=== PATIENT | male | born 1960 | race Caucasian/White ===

== ENCOUNTER 2016-10-08 12:37 | Inpatient (IN) | payer OTHER ==
[2016-10-08 12:40] VITALS: BMI 24.5
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
[2016-10-08] MEDS ORDERED: MENTHOL/PHENOL 1 EACH UD MM PRN (14:01)
[2016-10-08] MEDS ORDERED: NICOTINE POLACRILEX 2 MG GUM BUC PRN (14:01)
[2016-10-08] MEDS ORDERED: P-EPHED 60MG/TRIPROLIDI 2.5MG TABLET PO PRN (14:01)
[2016-10-08] MEDS ORDERED: MAGNESIUM CITRATE 300 ML BOTTLE PO PRN (14:01)
[2016-10-08] MEDS ORDERED: MAGNESIUM HYDROX 2400MG/30ML ORAL SUSPENSION 30 ML CUP PO PRN (14:01)
[2016-10-08] MEDS ORDERED: ACETAMINOPHEN 325 MG TABLET (FP) PO PRN (14:01)
[2016-10-08] MEDS ORDERED: LOPERAMIDE HCL 2 MG CAPSULE PO PRN (14:01)
[2016-10-08] MEDS ORDERED: guaiFENesin/D-METHORPHAN HB 10 ML UNIT-DOSE CUPS PO PRN (14:01)
[2016-10-08] MEDS ORDERED: diphenhydrAMINE HCL 50 MG CAPSULE PO PRN (14:01)
[2016-10-08] MEDS ORDERED: MAG HYDROX/AL HYDROX/SIMETH 30 ML UNIT-DOSE CUP PO PRN (14:01)
[2016-10-08] MEDS ORDERED: chlordiazePOXIDE HCL 25 MG CAPSULE PO PRN (14:01)
[2016-10-08] MEDS ORDERED: LEVOTHYROXINE NA 50 MCG TABLET (FP) PO SCH (14:15)
[2016-10-08] MEDS ORDERED: TRIMETHOBENZAMIDE HCL 200MG/2ML INJ IM PRN (14:21)
[2016-10-08] MEDS ORDERED: chlordiazePOXIDE HCL 25 MG CAPSULE PO ONE (14:45)
[2016-10-08] MEDS: LEVOTHYROXINE NA 100 MCG TABLET (FP) PO SCH (15:25)
[2016-10-08] MEDS: NICOTINE 14 MG/24 HOURS TOPICAL PATCH TD SCH (15:25)
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
[2016-10-08] MEDS: IBUPROFEN 400 MG TABLET (FP) PO PRN (17:02)
[2016-10-08] MEDS: chlordiazePOXIDE HCL 25 MG CAPSULE PO SCH ×2 (17:03→22:44)
[2016-10-08] MEDS ORDERED: ONDANSETRON *ODT* 4 MG TABLET SL PRN (18:43)
[2016-10-08] MEDS ORDERED: GABAPENTIN 100 MG CAPSULE (FP) PO SCH (22:00)
[2016-10-08 22:16] LABS: HIV 1 & 2 AB NEGATIVE; HIV 1 AGp24 NEGATIVE
[2016-10-08 22:17] LABS: URINE APPEARANCE CLEAR; URINE BILIRUBIN NEGATIVE (NEGATIVE); URINE BLOOD 2+ (NEGATIVE); URINE COLOR LTYELLOW; URINE GLUCOSE (UA) NEGATIVE (NEGATIVE); URINE KETONE NEGATIVE (NEGATIVE); URINE LEUK ESTERASE NEGATIVE (NEGATIVE); URINE NITRITE NEGATIVE (NEGATIVE); URINE PROTEIN NEGATIVE (NEGATIVE); URINE UROBILINOGEN NEGATIVE mg/dL (0.2-1.0)
[2016-10-08 22:29] LABS: URINE MUCUS RARE; URINE RBC 6 /hpf (0-3); URINE WBC 1 /hpf (3-5)
[2016-10-08] MEDS: traZODone HCL 100 MG TABLET (FP) PO SCH (22:44)
[2016-10-08] MEDS: THIAMINE HCL 100 MG TABLET (FP) PO SCH (22:44)
[2016-10-08] MEDS: GABAPENTIN 300 MG CAPSULE (FP) PO SCH (22:44)
[2016-10-09] MEDS: chlordiazePOXIDE HCL 25 MG CAPSULE PO SCH ×4 (05:19→22:36)
[2016-10-09] MEDS: IBUPROFEN 400 MG TABLET (FP) PO PRN (05:22)
[2016-10-09] MEDS: LEVOTHYROXINE NA 100 MCG TABLET (FP) PO SCH (06:26)
[2016-10-09 09:59] LABS: MCH 23.1 pg (25.7-33.7); MCHC 31.3 g/dl (32.0-35.9); MEAN CELL VOLUME 73.9 fl (80-96); MEAN PLT VOLUME 9.3 fl (7.5-11.1); PLATELET COUNT 161 K/MM3 (134-434); RDW 16.3 % (11.9-15.9); WHITE BLOOD COUNT 8.1 K/mm3 (4.0-10.0)
[2016-10-09 10:27] LABS: ALBUMIN 3.8 g/dl (3.4-5.0); ALK PHOS 77 U/L (45-117); ANION GAP 11 (8-16); BILIRUBIN,TOTAL 0.6 mg/dL (0.2-1.0); CALCIUM 9.8 mg/dL (8.5-10.1); CO2 24 mmol/L (21-32); CREATININE 1.1 mg/dL (0.7-1.3); GLUCOSE,RANDOM 110 mg/dL (74-106); SGOT/AST 59 U/L (15-37); SGPT/ALT 35 U/L (12-78); TOT PROT 7.2 g/dl (6.4-8.2)
[2016-10-09] MEDS: PRENATAL VITAMINS W/ FOLIC ACID TABLET (FP) PO SCH (10:48)
[2016-10-09] MEDS: GABAPENTIN 300 MG CAPSULE (FP) PO SCH ×2 (10:49→22:36)
[2016-10-09] MEDS: SERTRALINE HCL 50 MG TABLET (FP) PO SCH (10:50)
[2016-10-09] MEDS: NICOTINE 14 MG/24 HOURS TOPICAL PATCH TD SCH (10:50)
[2016-10-09] MEDS: RANITIDINE HCL 150 MG TABLET (FP) PO SCH ×2 (12:26→22:36)
[2016-10-09] MEDS: ALBUTEROL SO4 2.5/IPRATROPIUM 0.5 INH SOL 3 ML VIAL.NEB. NEB PRN (17:45)
--- NOTE | 2016-10-09 18:37 | PN ---
S CIWA - CIWA Score Nausea/Vomitin Muscle Tremors: 3 Anxiety: 3 Agitation: 0-Normal Activity Paroxysmal Sweats: 3 Orientation: 0-Oriented Tacttile Disturbances: 0-None Auditory Disturbances: 2-Mild Harshness/Frighten Visual Disturbances: 3-Moderate Sensitivity Headache: 0-None Present CIWA-Ar Total Score: 17 BHS Progress Note (SOAP) Subjective: Nausea, Stomach Cramping, Fatigue, Sweating, Tremors, Body Aches. Objective: PT. A & O X 3, OBSERVED MOVING ABOUT UNIT IN WHEELCHAIR. NO ACUTE DISTRESS. 10/09/16 18:34 Vital Signs Temperature 98.4 F 10/09/16 18:04 Pulse Rate 77 10/09/16 18:04 Respiratory Rate 18 10/09/16 18:04 Blood Pressure 120/65 10/09/16 18:04 O2 Sat by Pulse Oximetry (%) Laboratory Tests 10/08/16 10/08/16 10/09/16 14:00 21:45 08:00 WBC 8.1 RBC 5.40 Hgb 12.5 Hct 39.9 MCV 73.9 L MCH 23.1 L MCHC 31.3 L RDW 16.3 H Plt Count 161 MPV 9.3 Sodium Potassium Chloride Carbon Dioxide Anion Gap BUN Creatinine Creat Clearance w eGFR Random Glucose Calcium Total Bilirubin AST ALT Alkaline Phosphatase Total Protein Albumin Urine Color Ltyellow Urine Appearance Clear Urine pH 5.0 Ur Specific [place] 1.015 Urine Protein Negative Urine Glucose (UA) Negative Urine Ketones Negative Urine Blood 2+ H Urine Nitrite Negative Urine Bilirubin Negative Urine Urobilinogen Negative Ur Leukocyte Esterase Negative Urine RBC 6 Urine WBC 1 Ur Epithelial Cells Rare Urine Mucus Rare RPR Titer HIV 1&2 Antibody Screen Negative HIV P24 Antigen Negative 10/09/16 10/09/16 08:00 08:00 WBC RBC Hgb Hct MCV MCH MCHC RDW Plt Count MPV Sodium 141 Potassium 3.9 Chloride 106 Carbon Dioxide 24 Anion Gap 11 BUN 10 Creatinine 1.1 Creat Clearance w eGFR > 60 Random Glucose 110 H Calcium 9.8 Total Bilirubin 0.6 AST 59 H ALT 35 Alkaline Phosphatase 77 Total Protein 7.2 Albumin 3.8 Urine Color Urine Appearance Urine pH Ur Specific [place] Urine Protein Urine Glucose (UA) Urine Ketones Urine Blood Urine Nitrite Urine Bilirubin Urine Urobilinogen Ur Leukocyte Esterase Urine RBC Urine WBC Ur Epithelial Cells Urine Mucus RPR Titer Nonreactive HIV 1&2 Antibody Screen HIV P24 Antigen LABS NOTED. Assessment: 10/09/16 18:35 WITHDRAWAL SYMPTOMS. Plan: CONTINUE DETOX.
[2016-10-09] MEDS: THIAMINE HCL 100 MG TABLET (FP) PO SCH (22:36)
[2016-10-09] MEDS: traZODone HCL 100 MG TABLET (FP) PO SCH (22:40)
[2016-10-10] MEDS: chlordiazePOXIDE HCL 25 MG CAPSULE PO SCH ×2 (05:10→10:34)
[2016-10-10] MEDS: IBUPROFEN 400 MG TABLET (FP) PO PRN ×2 (05:10→22:19)
[2016-10-10] MEDS: LEVOTHYROXINE NA 100 MCG TABLET (FP) PO SCH (06:19)
--- NOTE | 2016-10-10 08:10 | EKG ---
Test Reason : Blood Pressure : / mmHG Vent. Rate : 069 BPM Atrial Rate : 069 BPM P-R Int : 190 ms QRS Dur : 086 ms QT Int : 378 ms P-R-T Axes : 075 082 072 degrees QTc Int : 405 ms NORMAL SINUS RHYTHM SEPTAL INFARCT , AGE UNDETERMINED ABNORMAL ECG NO PREVIOUS ECGS AVAILABLE Confirmed by NEGIN BENITEZ, KOBI ([id number]) on 10/10/2016 8:09:37 AM Referred By: Mark Durand Confirmed By:KOBI KAM MD
[2016-10-10] MEDS: SERTRALINE HCL 50 MG TABLET (FP) PO SCH (10:34)
[2016-10-10] MEDS: NICOTINE 14 MG/24 HOURS TOPICAL PATCH TD SCH (10:34)
[2016-10-10] MEDS: GABAPENTIN 300 MG CAPSULE (FP) PO SCH ×2 (10:34→22:16)
[2016-10-10] MEDS: RANITIDINE HCL 150 MG TABLET (FP) PO SCH ×2 (10:34→22:16)
[2016-10-10] MEDS: PRENATAL VITAMINS W/ FOLIC ACID TABLET (FP) PO SCH (10:34)
--- NOTE | 2016-10-10 15:41 | PN ---
S CIWA - CIWA Score Nausea/Vomitin Muscle Tremors: 4-Moderate,w/Arms Extend Anxiety: 4-Mod. Anxious/Guarded Agitation: 4-Moderately Restless Paroxysmal Sweats: No Perspiration Orientation: 0-Oriented Tacttile Disturbances: 1-Very Mild Itch/Numbness Auditory Disturbances: 0-None Visual Disturbances: 0-None Headache: 1-Very Mild CIWA-Ar Total Score: 17 BHS Progress Note (SOAP) Subjective: Tremor, chills, nausea, anxious, interrupted sleep Objective: 10/10/16 15:39 Last Vital Signs Temp Pulse Resp BP Pulse Ox 96.9 F L 84 20 145/85 10/10/16 14:57 10/10/16 14:57 10/10/16 14:57 10/10/16 14:57 Laboratory Tests 10/08/16 10/08/16 10/09/16 14:00 21:45 08:00 WBC 8.1 RBC 5.40 Hgb 12.5 Hct 39.9 MCV 73.9 L MCH 23.1 L MCHC 31.3 L RDW 16.3 H Plt Count 161 MPV 9.3 Sodium Potassium Chloride Carbon Dioxide Anion Gap BUN Creatinine Creat Clearance w eGFR Random Glucose Calcium Total Bilirubin AST ALT Alkaline Phosphatase Total Protein Albumin Urine Color Ltyellow Urine Appearance Clear Urine pH 5.0 Ur Specific [place] 1.015 Urine Protein Negative Urine Glucose (UA) Negative Urine Ketones Negative Urine Blood 2+ H Urine Nitrite Negative Urine Bilirubin Negative Urine Urobilinogen Negative Ur Leukocyte Esterase Negative Urine RBC 6 Urine WBC 1 Ur Epithelial Cells Rare Urine Mucus Rare RPR Titer HIV 1&2 Antibody Screen Negative HIV P24 Antigen Negative 10/09/16 10/09/16 08:00 08:00 WBC RBC Hgb Hct MCV MCH MCHC RDW Plt Count MPV Sodium 141 Potassium 3.9 Chloride 106 Carbon Dioxide 24 Anion Gap 11 BUN 10 Creatinine 1.1 Creat Clearance w eGFR > 60 Random Glucose 110 H Calcium 9.8 Total Bilirubin 0.6 AST 59 H ALT 35 Alkaline Phosphatase 77 Total Protein 7.2 Albumin 3.8 Urine Color Urine Appearance Urine pH Ur Specific [place] Urine Protein Urine Glucose (UA) Urine Ketones Urine Blood Urine Nitrite Urine Bilirubin Urine Urobilinogen Ur Leukocyte Esterase Urine RBC Urine WBC Ur Epithelial Cells Urine Mucus RPR Titer Nonreactive HIV 1&2 Antibody Screen HIV P24 Antigen Labs noted: UA 2+ blood Assessment: 10/10/16 15:40 Withdrawal symptoms Noted with microscopic hematuria Plan: Continue detox Microscopic hematuria: encouraged to drink lots of water, repeat UA
[2016-10-10] MEDS: ALBUTEROL SO4 2.5/IPRATROPIUM 0.5 INH SOL 3 ML VIAL.NEB. NEB PRN (15:43)
[2016-10-10] MEDS: chlordiazePOXIDE 5 MG CAPSULE PO SCH ×2 (17:17→22:16)
[2016-10-10 20:53] LABS: URINE APPEARANCE CLEAR; URINE BILIRUBIN NEGATIVE (NEGATIVE); URINE BLOOD NEGATIVE (NEGATIVE); URINE COLOR YELLOW; URINE GLUCOSE (UA) NEGATIVE (NEGATIVE); URINE KETONE NEGATIVE (NEGATIVE); URINE LEUK ESTERASE NEGATIVE (NEGATIVE); URINE NITRITE NEGATIVE (NEGATIVE); URINE PROTEIN NEGATIVE (NEGATIVE); URINE UROBILINOGEN NEGATIVE mg/dL (0.2-1.0)
[2016-10-10] MEDS: THIAMINE HCL 100 MG TABLET (FP) PO SCH (22:00)
[2016-10-10] MEDS: traZODone HCL 100 MG TABLET (FP) PO SCH (22:16)
[2016-10-11] MEDS: chlordiazePOXIDE 5 MG CAPSULE PO SCH ×2 (05:42→10:38)
[2016-10-11] MEDS: LEVOTHYROXINE NA 100 MCG TABLET (FP) PO SCH (07:09)
[2016-10-11] MEDS: ALBUTEROL SO4 2.5/IPRATROPIUM 0.5 INH SOL 3 ML VIAL.NEB. NEB PRN (08:33)
[2016-10-11] MEDS: RANITIDINE HCL 150 MG TABLET (FP) PO SCH ×2 (10:38→22:26)
[2016-10-11] MEDS: NICOTINE 14 MG/24 HOURS TOPICAL PATCH TD SCH (10:38)
[2016-10-11] MEDS: PRENATAL VITAMINS W/ FOLIC ACID TABLET (FP) PO SCH (10:38)
[2016-10-11] MEDS: SERTRALINE HCL 50 MG TABLET (FP) PO SCH (10:38)
[2016-10-11] MEDS: GABAPENTIN 300 MG CAPSULE (FP) PO SCH ×2 (10:39→22:26)
[2016-10-11] MEDS ORDERED: IBUPROFEN 400 MG TABLET (FP) PO PRN (10:47)
--- NOTE | 2016-10-11 10:50 | PN ---
S Progress Note (SOAP) Subjective: Sweating,interrupted sleep,restless. C/O knee pain, motrin increased to 800mg prn. Objective: 10/11/16 10:48 Vital Signs - 8 hr 10/11/16 10/11/16 10/11/16 03:26 07:27 09:12 Temperature 96.3 F L 97.4 F L Pulse Rate 83 84 Respiratory 18 18 18 Rate Blood Pressure 120/74 137/83 Laboratory Last Values WBC 8.1 K/mm3 (4.0-10.0) 10/09/16 08:00 RBC 5.40 M/mm3 (4.00-5.60) 10/09/16 08:00 Hgb 12.5 GM/dL (11.7-16.9) 10/09/16 08:00 Hct 39.9 % (35.4-49) 10/09/16 08:00 MCV 73.9 fl (80-96) L 10/09/16 08:00 MCH 23.1 pg (25.7-33.7) L 10/09/16 08:00 MCHC 31.3 g/dl (32.0-35.9) L 10/09/16 08:00 RDW 16.3 % (11.9-15.9) H 10/09/16 08:00 Plt Count 161 K/MM3 (134-434) 10/09/16 08:00 MPV 9.3 fl (7.5-11.1) 10/09/16 08:00 Sodium 141 mmol/L (136-145) 10/09/16 08:00 Potassium 3.9 mmol/L (3.5-5.1) 10/09/16 08:00 Chloride 106 mmol/L (98-107) 10/09/16 08:00 Carbon Dioxide 24 mmol/L (21-32) 10/09/16 08:00 Anion Gap 11 (8-16) 10/09/16 08:00 BUN 10 mg/dL (7-18) 10/09/16 08:00 Creatinine 1.1 mg/dL (0.7-1.3) 10/09/16 08:00 Creat Clearance w eGFR > 60 (>60) 10/09/16 08:00 Random Glucose 110 mg/dL (74-106) H 10/09/16 08:00 Calcium 9.8 mg/dL (8.5-10.1) 10/09/16 08:00 Total Bilirubin 0.6 mg/dL (0.2-1.0) 10/09/16 08:00 AST 59 U/L (15-37) H 10/09/16 08:00 ALT 35 U/L (12-78) 10/09/16 08:00 Alkaline Phosphatase 77 U/L (45-117) 10/09/16 08:00 Total Protein 7.2 g/dl (6.4-8.2) 10/09/16 08:00 Albumin 3.8 g/dl (3.4-5.0) 10/09/16 08:00 Urine Color Yellow 10/10/16 16:10 Urine Appearance Clear 10/10/16 16:10 Urine pH 6.0 (5.0-8.0) 10/10/16 16:10 Ur Specific [place] 1.020 (1.005-1.025) 10/10/16 16:10 Urine Protein Negative (NEGATIVE) 10/10/16 16:10 Urine Glucose (UA) Negative (NEGATIVE) 10/10/16 16:10 Urine Ketones Negative (NEGATIVE) 10/10/16 16:10 Urine Blood Negative (NEGATIVE) 10/10/16 16:10 Urine Nitrite Negative (NEGATIVE) 10/10/16 16:10 Urine Bilirubin Negative (NEGATIVE) 10/10/16 16:10 Urine Urobilinogen Negative mg/dL (0.2-1.0) 10/10/16 16:10 Ur Leukocyte Esterase Negative (NEGATIVE) 10/10/16 16:10 Urine RBC 6 /hpf (0-3) 10/08/16 21:45 Urine WBC 1 /hpf (3-5) 10/08/16 21:45 Ur Epithelial Cells Rare /hpf (FEW) 10/08/16 21:45 Urine Mucus Rare 10/08/16 21:45 RPR Titer Nonreactive (NONREACTIVE) 10/09/16 08:00 HIV 1&2 Antibody Screen Negative 10/08/16 14:00 HIV P24 Antigen Negative 10/08/16 14:00 labs noted Assessment: 10/11/16 10:49 Withdrawal sx. Plan: Continue detox
[2016-10-11] MEDS: chlordiazePOXIDE HCL 10 MG CAPSULE PO SCH ×2 (17:27→22:26)
[2016-10-11] MEDS: traZODone HCL 100 MG TABLET (FP) PO SCH (22:26)
[2016-10-11] MEDS: THIAMINE HCL 100 MG TABLET (FP) PO SCH (22:26)
[2016-10-12] MEDS: chlordiazePOXIDE HCL 10 MG CAPSULE PO SCH (05:44)
[2016-10-12] MEDS: ALBUTEROL SO4 2.5/IPRATROPIUM 0.5 INH SOL 3 ML VIAL.NEB. NEB PRN (05:55)
[2016-10-12] MEDS: LEVOTHYROXINE NA 100 MCG TABLET (FP) PO SCH (06:16)
[2016-10-12 06:36] VITALS: TEMP 97.2
--- NOTE | 2016-10-12 08:33 | DS ---
[facility] Detox Discharge Summary Admission Date: 10/08/16 Discharge Date: 10/12/16 - History Present History: Alcohol Dependence, Cocaine Dependence Pertinent Past History: Asthma GERD Hypothyroidism - Physical Exam Results Vital Signs: Vital Signs Temperature 97.2 F L 10/12/16 06:35 Pulse Rate 87 10/12/16 06:35 Respiratory Rate 16 10/12/16 06:35 Blood Pressure 125/80 10/12/16 06:35 O2 Sat by Pulse Oximetry (%) Pertinent Admission Physical Exam Findings: Withdrawal sx. Laboratory Last Values WBC 8.1 K/mm3 (4.0-10.0) 10/09/16 08:00 RBC 5.40 M/mm3 (4.00-5.60) 10/09/16 08:00 Hgb 12.5 GM/dL (11.7-16.9) 10/09/16 08:00 Hct 39.9 % (35.4-49) 10/09/16 08:00 MCV 73.9 fl (80-96) L 10/09/16 08:00 MCH 23.1 pg (25.7-33.7) L 10/09/16 08:00 MCHC 31.3 g/dl (32.0-35.9) L 10/09/16 08:00 RDW 16.3 % (11.9-15.9) H 10/09/16 08:00 Plt Count 161 K/MM3 (134-434) 10/09/16 08:00 MPV 9.3 fl (7.5-11.1) 10/09/16 08:00 Sodium 141 mmol/L (136-145) 10/09/16 08:00 Potassium 3.9 mmol/L (3.5-5.1) 10/09/16 08:00 Chloride 106 mmol/L (98-107) 10/09/16 08:00 Carbon Dioxide 24 mmol/L (21-32) 10/09/16 08:00 Anion Gap 11 (8-16) 10/09/16 08:00 BUN 10 mg/dL (7-18) 10/09/16 08:00 Creatinine 1.1 mg/dL (0.7-1.3) 10/09/16 08:00 Creat Clearance w eGFR > 60 (>60) 10/09/16 08:00 Random Glucose 110 mg/dL (74-106) H 10/09/16 08:00 Calcium 9.8 mg/dL (8.5-10.1) 10/09/16 08:00 Total Bilirubin 0.6 mg/dL (0.2-1.0) 10/09/16 08:00 AST 59 U/L (15-37) H 10/09/16 08:00 ALT 35 U/L (12-78) 10/09/16 08:00 Alkaline Phosphatase 77 U/L (45-117) 10/09/16 08:00 Total Protein 7.2 g/dl (6.4-8.2) 10/09/16 08:00 Albumin 3.8 g/dl (3.4-5.0) 10/09/16 08:00 Urine Color Yellow 10/10/16 16:10 Urine Appearance Clear 10/10/16 16:10 Urine pH 6.0 (5.0-8.0) 10/10/16 16:10 Ur Specific [place] 1.020 (1.005-1.025) 10/10/16 16:10 Urine Protein Negative (NEGATIVE) 10/10/16 16:10 Urine Glucose (UA) Negative (NEGATIVE) 10/10/16 16:10 Urine Ketones Negative (NEGATIVE) 10/10/16 16:10 Urine Blood Negative (NEGATIVE) 10/10/16 16:10 Urine Nitrite Negative (NEGATIVE) 10/10/16 16:10 Urine Bilirubin Negative (NEGATIVE) 10/10/16 16:10 Urine Urobilinogen Negative mg/dL (0.2-1.0) 10/10/16 16:10 Ur Leukocyte Esterase Negative (NEGATIVE) 10/10/16 16:10 Urine RBC 6 /hpf (0-3) 10/08/16 21:45 Urine WBC 1 /hpf (3-5) 10/08/16 21:45 Ur Epithelial Cells Rare /hpf (FEW) 10/08/16 21:45 Urine Mucus Rare 10/08/16 21:45 RPR Titer Nonreactive (NONREACTIVE) 10/09/16 08:00 HIV 1&2 Antibody Screen Negative 10/08/16 14:00 HIV P24 Antigen Negative 10/08/16 14:00 labs noted - Treatment Hospital Course: Detox Protocol Followed, Detoxed Safely, Responded well, Discharged Condition Good, Rehab Referral Accepted Patient has Accepted a Rehab Referral to: [facility] - Medication Discharge Medications: Ambulatory Orders Gabapentin [Neurontin -] 600 mg PO BID 10/08/16 Ibuprofen 600 mg PO BID 10/08/16 Levothyroxine Sodium [Levo-T] 100 mcg PO DAILY 10/08/16 Sertraline HCl [Zoloft -] 50 mg PO DAILY #30 tablet 10/08/16 Sertraline HCl [Zoloft -] 100 mg PO DAILY 10/08/16 Trazodone HCl [Desyrel -] 100 mg PO HS 10/08/16 Trazodone HCl [Desyrel -] 100 mg PO HS #30 tablet 10/08/16 - Diagnosis (1) Alcohol dependence with uncomplicated withdrawal Current Visit: Yes Status: Acute (2) Cocaine dependence, uncomplicated Current Visit: Yes Status: Acute (3) Asthma Current Visit: Yes Status: Chronic Qualifiers: Asthma severity: mild intermittent Asthma complication type: with acute exacerbation Qualified Code(s): J45.21 - Mild intermittent asthma with (acute) exacerbation (4) Hypothyroidism Current Visit: Yes Status: Chronic (5) Bipolar disorder Current Visit: Yes Status: Acute (6) Nicotine dependence Current Visit: Yes Status: Acute Qualifiers: Nicotine product type: cigarettes Substance use status: uncomplicated Qualified Code(s): F17.210 - Nicotine dependence, cigarettes, uncomplicated (7) Substance induced mood disorder Current Visit: Yes Status: Acute - AMA Did Patient Leave Against Medical Advice: No
[2016-10-12] MEDS: GABAPENTIN 300 MG CAPSULE (FP) PO SCH (09:04)
[2016-10-12] MEDS: SERTRALINE HCL 50 MG TABLET (FP) PO SCH (09:04)
[2016-10-12] MEDS: PRENATAL VITAMINS W/ FOLIC ACID TABLET (FP) PO SCH (09:04)
[2016-10-12] MEDS: RANITIDINE HCL 150 MG TABLET (FP) PO SCH (09:04)
[2016-10-12] MEDS: NICOTINE 14 MG/24 HOURS TOPICAL PATCH TD SCH (09:05)
[2016-10-12 09:39] VITALS: BP 128/73; PULSE 99
== END 2016-10-12 13:02 | disposition home or self-care (01) | DRG 774 ==
LOC: YASAS 12:37 → Y3N 14:02
PROVIDERS: ADMIT Internal Medicine; ATTEND Internal Medicine
PROC: HZ2ZZZZ Detoxification Services for Substance Abuse Treatment (ICD-10-PCS; principal; 2016-10-08)
DX: F10.230 Alcohol dependence with withdrawal, uncomplicated (principal); F14.20 Cocaine dependence, uncomplicated; F17.210 Nicotine dependence, cigarettes, uncomplicated; F19.24 Other psychoactive substance dependence with psychoactive substance-induced mood disorder; F31.9 Bipolar disorder, unspecified; J45.21 Mild intermittent asthma with (acute) exacerbation; E03.9 Hypothyroidism, unspecified; R31.29 Other microscopic hematuria; K21.9 Gastro-esophageal reflux disease without esophagitis
CPT/HCPCS: 36415; 80053; 81003; 81015; 85027; 86593; 87389; 93005; 93010; 94640

== ENCOUNTER 2018-08-14 14:26 | Inpatient (IN) | payer OTHER ==
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
[2018-08-14 14:33] VITALS: BMI 23.2
[2018-08-14] MEDS ORDERED: MAGNESIUM HYDROX 2400MG/30ML ORAL SUSPENSION 30 ML CUP PO PRN (14:56)
[2018-08-14] MEDS ORDERED: ACETAMINOPHEN 325 MG TABLET (FP) PO PRN (14:56)
[2018-08-14] MEDS ORDERED: MAG HYDROX/AL HYDROX/SIMETH 30 ML UNIT-DOSE CUP PO PRN (14:56)
[2018-08-14] MEDS ORDERED: IBUPROFEN 400 MG TABLET (FP) PO PRN (14:56)
[2018-08-14] MEDS ORDERED: chlordiazePOXIDE HCL 25 MG CAPSULE PO ONE (14:56)
[2018-08-14] MEDS ORDERED: MAGNESIUM CITRATE 300 ML BOTTLE PO PRN (14:56)
[2018-08-14] MEDS ORDERED: MENTHOL/PHENOL 1 EACH UD MM PRN (14:56)
[2018-08-14] MEDS ORDERED: ALBUTEROL SO4 2.5/IPRATROPIUM 0.5 INH SOL 3 ML VIAL.NEB. NEB PRN (14:59)
[2018-08-14] MEDS: ACETAMINOPHEN 325 MG TABLET (FP) PO PRN (16:10)
[2018-08-14] MEDS: chlordiazePOXIDE HCL 25 MG CAPSULE PO SCH ×2 (16:52→22:06)
[2018-08-14] MEDS: METHOCARBAMOL 500 MG TABLET PO PRN ×2 (16:53→22:51)
[2018-08-14] MEDS: NICOTINE POLACRILEX 4 MG GUM BUC PRN (17:59)
[2018-08-14] MEDS: BISMUTH SUBSALICYLATE 262 MG/15 ML BTL PO PRN ×2 (18:01→19:29)
[2018-08-14] MEDS: chlordiazePOXIDE HCL 25 MG CAPSULE PO PRN (18:41)
[2018-08-14] MEDS: hydrOXYzine PAMOATE 50 MG CAPSULE (FP) PO PRN (20:33)
[2018-08-14] MEDS: THIAMINE HCL 100 MG TABLET (FP) PO SCH (22:06)
[2018-08-14] MEDS: NAPROXEN 500 MG TABLET (FP) PO SCH (22:06)
[2018-08-14] MEDS: RANITIDINE HCL 150 MG TABLET (FP) PO SCH (22:06)
[2018-08-14] MEDS: MELATONIN 5 MG TABLETS PO PRN (22:08)
[2018-08-14] MEDS: LIDOCAINE PATCH REMOVAL MC SCH (22:09)
[2018-08-15] MEDS: chlordiazePOXIDE HCL 25 MG CAPSULE PO PRN ×3 (02:27→13:48)
[2018-08-15] MEDS: METHOCARBAMOL 500 MG TABLET PO PRN ×2 (03:56→17:14)
[2018-08-15] MEDS: LEVOTHYROXINE NA 25 MCG TABLET (FP) PO SCH (06:00)
[2018-08-15] MEDS: chlordiazePOXIDE HCL 25 MG CAPSULE PO SCH ×4 (06:00→22:14)
[2018-08-15] MEDS: NAPROXEN 500 MG TABLET (FP) PO SCH ×2 (09:27→22:13)
[2018-08-15] MEDS: PRENATAL VITAMINS W/ FOLIC ACID TABLET (FP) PO SCH (09:28)
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
[2018-08-15] MEDS: RANITIDINE HCL 150 MG TABLET (FP) PO SCH ×2 (10:17→22:14)
[2018-08-15] MEDS: ONDANSETRON *ODT* 4 MG TABLET SL PRN (10:17)
[2018-08-15] MEDS: LIDOCAINE 5% TOPICAL PATCH TP SCH (10:20)
--- NOTE | 2018-08-15 10:21 | PN ---
BHS CIWA - CIWA Score Nausea/Vomitin Muscle Tremors: 2 Anxiety: 2 Agitation: 2 Paroxysmal Sweats: 1-Minimal Palms Moist Orientation: 0-Oriented Tacttile Disturbances: 1-Very Mild Itch/Numbness Auditory Disturbances: 1-Very Mild Visual Disturbances: 0-None Headache: 2-Mild CIWA-Ar Total Score: 13 BHS Progress Note (SOAP) Subjective: alert,irritable,anxious,interrupted sleep,tremor Objective: 08/15/18 10:19 Vital Signs Temperature 96.4 F L 08/15/18 09:52 Pulse Rate 86 08/15/18 09:52 Respiratory Rate 18 08/15/18 09:52 Blood Pressure 130/90 08/15/18 09:52 O2 Sat by Pulse Oximetry (%) 08/15/18 10:20 labs pending Assessment: 08/15/18 10:20 withdrawal symptom Plan: continue detox
[2018-08-15 10:35] LABS: ALBUMIN 3.5 g/dl (3.4-5.0); BILIRUBIN,TOTAL 0.9 mg/dL (0.2-1); BLOOD UREA NITROGEN 6.7 mg/dL (7-18); CREATININE 0.8 mg/dL (0.55-1.3); POTASSIUM 3.4 mmol/L (3.5-5.1); TOT PROT 7.4 g/dl (6.4-8.2)
[2018-08-15 10:54] LABS: HEMATOCRIT 34.5 % (35.4-49); HEMOGLOBIN 10.8 GM/dL (11.7-16.9); MCH 23.4 pg (25.7-33.7); MCHC 31.2 g/dl (32.0-35.9); MEAN CELL VOLUME 75.1 fl (80-96); MEAN PLT VOLUME 8.7 fl (7.5-11.1); PLATELET COUNT 244 K/MM3 (134-434); WHITE BLOOD COUNT 8.1 K/mm3 (4.0-10.0)
[2018-08-15] MEDS: GABAPENTIN 300 MG CAPSULE (FP) PO SCH ×2 (12:33→22:13)
[2018-08-15] MEDS: NICOTINE 21 MG/24 HOURS TOPICAL PATCH TD SCH (12:33)
[2018-08-15] MEDS: SERTRALINE HCL 50 MG TABLET (FP) PO SCH (12:33)
[2018-08-15] MEDS: FERROUS SO4 325 MG TABLET (FP) PO SCH (17:18)
[2018-08-15] MEDS: POTASSIUM CHLORIDE TABS 20 MEQ TABLET.ER (FP) PO SCH (17:18)
[2018-08-15] MEDS: traZODone HCL 50 MG TABLET (FP) PO SCH (22:13)
[2018-08-15] MEDS: THIAMINE HCL 100 MG TABLET (FP) PO SCH (22:14)
[2018-08-15] MEDS: LIDOCAINE PATCH REMOVAL MC SCH (22:14)
[2018-08-16] MEDS: chlordiazePOXIDE HCL 25 MG CAPSULE PO SCH ×2 (06:14→10:41)
[2018-08-16] MEDS: LEVOTHYROXINE NA 25 MCG TABLET (FP) PO SCH (06:14)
[2018-08-16] MEDS: METHOCARBAMOL 500 MG TABLET PO PRN ×2 (06:44→17:17)
[2018-08-16] MEDS: FERROUS SO4 325 MG TABLET (FP) PO SCH ×2 (07:10→17:01)
[2018-08-16] MEDS: GABAPENTIN 300 MG CAPSULE (FP) PO SCH ×2 (10:20→22:40)
[2018-08-16] MEDS: SERTRALINE HCL 50 MG TABLET (FP) PO SCH (10:40)
[2018-08-16] MEDS: RANITIDINE HCL 150 MG TABLET (FP) PO SCH ×2 (10:40→22:40)
[2018-08-16] MEDS: PRENATAL VITAMINS W/ FOLIC ACID TABLET (FP) PO SCH (10:41)
[2018-08-16] MEDS: POTASSIUM CHLORIDE TABS 20 MEQ TABLET.ER (FP) PO SCH (10:41)
[2018-08-16] MEDS: NAPROXEN 500 MG TABLET (FP) PO SCH ×2 (10:41→22:43)
[2018-08-16] MEDS: LIDOCAINE 5% TOPICAL PATCH TP SCH (10:44)
[2018-08-16] MEDS: NICOTINE 21 MG/24 HOURS TOPICAL PATCH TD SCH (10:45)
--- NOTE | 2018-08-16 13:14 | PN ---
S CIWA - CIWA Score Nausea/Vomitin-Mild Nausea/No Vomiting Muscle Tremors: 2 Anxiety: 1-Mildly Anxious Agitation: 1-Slight > Activity Paroxysmal Sweats: 1-Minimal Palms Moist Orientation: 0-Oriented Tacttile Disturbances: 0-None Auditory Disturbances: 0-None Visual Disturbances: 0-None Headache: 1-Very Mild CIWA-Ar Total Score: 7 BHS Progress Note (SOAP) Subjective: states he is doing good on the alcohol detox protocol O: Vital Signs - 24 hr 08/15/18 08/15/18 08/15/18 14:28 17:33 22:05 Temperature 97.9 F 96.9 F L 98.7 F Pulse Rate 63 88 98 H Respiratory 18 18 16 Rate Blood Pressure 143/75 142/82 143/79 08/16/18 08/16/18 08/16/18 00:30 03:30 08:12 Temperature 96.1 F L Pulse Rate 67 Respiratory 18 18 20 Rate Blood Pressure 121/64 08/16/18 09:37 Temperature 98.1 F Pulse Rate 86 Respiratory 20 Rate Blood Pressure 116/61 Laboratory Tests 08/15/18 08/15/18 08/15/18 07:00 07:00 07:00 WBC 8.1 RBC 4.60 Hgb 10.8 L Hct 34.5 L MCV 75.1 L MCH 23.4 L MCHC 31.2 L RDW 15.0 Plt Count 244 D MPV 8.7 Sodium 138 Potassium 3.4 L Chloride 101 Carbon Dioxide 29 Anion Gap 8 BUN 6.7 L Creatinine 0.8 Est GFR (CKD-EPI)AfAm 115.74 Est GFR (CKD-EPI)NonAf 99.86 Random Glucose 71 L Calcium 9.0 Total Bilirubin 0.9 AST 24 ALT 21 Alkaline Phosphatase 130 H Total Protein 7.4 Albumin 3.5 RPR Titer HIV 1&2 Antibody Screen Negative HIV P24 Antigen Negative 08/15/18 07:00 WBC RBC Hgb Hct MCV MCH MCHC RDW Plt Count MPV Sodium Potassium Chloride Carbon Dioxide Anion Gap BUN Creatinine Est GFR (CKD-EPI)AfAm Est GFR (CKD-EPI)NonAf Random Glucose Calcium Total Bilirubin AST ALT Alkaline Phosphatase Total Protein Albumin RPR Titer Nonreactive HIV 1&2 Antibody Screen HIV P24 Antigen mild anemia low potassiium a/p: continue alcohol detox protocol Pt on K and iron supplementation
[2018-08-16] MEDS: chlordiazePOXIDE HCL 10 MG CAPSULE PO SCH ×2 (17:01→22:40)
[2018-08-16] MEDS: hydrOXYzine PAMOATE 50 MG CAPSULE (FP) PO PRN (17:18)
[2018-08-16] MEDS: traZODone HCL 50 MG TABLET (FP) PO SCH (22:40)
[2018-08-16] MEDS: LIDOCAINE PATCH REMOVAL MC SCH (22:40)
[2018-08-16] MEDS: THIAMINE HCL 100 MG TABLET (FP) PO SCH (22:41)
[2018-08-16] MEDS: MELATONIN 5 MG TABLETS PO PRN (22:41)
[2018-08-17] MEDS: hydrOXYzine PAMOATE 50 MG CAPSULE (FP) PO PRN ×3 (05:07→22:23)
[2018-08-17] MEDS: METHOCARBAMOL 500 MG TABLET PO PRN (05:07)
[2018-08-17] MEDS: chlordiazePOXIDE HCL 10 MG CAPSULE PO SCH ×3 (05:08→17:34)
[2018-08-17] MEDS: ACETAMINOPHEN 325 MG TABLET (FP) PO PRN (05:09)
[2018-08-17] MEDS: ALBUTEROL SO4 8 GM HFA INHALER IH PRN ×2 (05:11→09:31)
[2018-08-17] MEDS: LEVOTHYROXINE NA 25 MCG TABLET (FP) PO SCH (06:22)
[2018-08-17] MEDS: FERROUS SO4 325 MG TABLET (FP) PO SCH ×2 (07:13→17:34)
[2018-08-17] MEDS: POTASSIUM CHLORIDE TABS 20 MEQ TABLET.ER (FP) PO SCH (10:36)
[2018-08-17] MEDS: LIDOCAINE 5% TOPICAL PATCH TP SCH (10:37)
[2018-08-17] MEDS: RANITIDINE HCL 150 MG TABLET (FP) PO SCH ×2 (10:37→22:23)
[2018-08-17] MEDS: SERTRALINE HCL 50 MG TABLET (FP) PO SCH (10:37)
[2018-08-17] MEDS: NAPROXEN 500 MG TABLET (FP) PO SCH ×2 (10:37→22:23)
[2018-08-17] MEDS: PRENATAL VITAMINS W/ FOLIC ACID TABLET (FP) PO SCH (10:37)
[2018-08-17] MEDS: GABAPENTIN 300 MG CAPSULE (FP) PO SCH ×2 (10:37→22:23)
--- NOTE | 2018-08-17 10:57 | PN ---
S CIWA - CIWA Score Nausea/Vomitin-No Nausea/No Vomiting Muscle Tremors: 3 Anxiety: 1-Mildly Anxious Agitation: 1-Slight > Activity Paroxysmal Sweats: 1-Minimal Palms Moist Orientation: 0-Oriented Tacttile Disturbances: 0-None Auditory Disturbances: 0-None Visual Disturbances: 0-None Headache: 0-None Present CIWA-Ar Total Score: 6 BHS Progress Note (SOAP) Subjective: sweats mild shakes Objective: 08/17/18 10:56 Vital Signs Temperature 97.7 F 08/17/18 09:34 Pulse Rate 74 08/17/18 09:34 Respiratory Rate 15 08/17/18 09:34 Blood Pressure 136/78 08/17/18 09:34 O2 Sat by Pulse Oximetry (%) [id number] ambulating no acute distress Assessment: 08/17/18 10:56 mild withdrawal sx Plan: continue detox increase fluids
[2018-08-17] MEDS: NICOTINE 21 MG/24 HOURS TOPICAL PATCH TD SCH (11:07)
[2018-08-17] MEDS: NICOTINE POLACRILEX 4 MG GUM BUC PRN (14:47)
[2018-08-17] MEDS: ONDANSETRON *ODT* 4 MG TABLET SL PRN (17:38)
[2018-08-17] MEDS: traZODone HCL 50 MG TABLET (FP) PO SCH (22:23)
[2018-08-17] MEDS: THIAMINE HCL 100 MG TABLET (FP) PO SCH (22:23)
[2018-08-17] MEDS: LIDOCAINE PATCH REMOVAL MC SCH (22:26)
[2018-08-18] MEDS: METHOCARBAMOL 500 MG TABLET PO PRN ×2 (05:26→17:29)
[2018-08-18] MEDS: chlordiazePOXIDE HCL 10 MG CAPSULE PO SCH ×2 (05:26→17:20)
[2018-08-18] MEDS: LEVOTHYROXINE NA 25 MCG TABLET (FP) PO SCH (06:28)
[2018-08-18] MEDS: FERROUS SO4 325 MG TABLET (FP) PO SCH ×2 (07:06→17:20)
[2018-08-18] MEDS: ALBUTEROL SO4 8 GM HFA INHALER IH PRN ×3 (09:30→22:21)
[2018-08-18] MEDS: POTASSIUM CHLORIDE TABS 20 MEQ TABLET.ER (FP) PO SCH (10:19)
[2018-08-18] MEDS: NICOTINE 21 MG/24 HOURS TOPICAL PATCH TD SCH (10:20)
[2018-08-18] MEDS: PRENATAL VITAMINS W/ FOLIC ACID TABLET (FP) PO SCH (10:20)
[2018-08-18] MEDS: NAPROXEN 500 MG TABLET (FP) PO SCH ×2 (10:20→22:03)
[2018-08-18] MEDS: GABAPENTIN 300 MG CAPSULE (FP) PO SCH ×2 (10:20→22:03)
[2018-08-18] MEDS: SERTRALINE HCL 50 MG TABLET (FP) PO SCH (10:20)
[2018-08-18] MEDS: RANITIDINE HCL 150 MG TABLET (FP) PO SCH ×2 (10:20→22:03)
[2018-08-18] MEDS: LIDOCAINE 5% TOPICAL PATCH TP SCH (10:24)
[2018-08-18] MEDS ORDERED: chlordiazePOXIDE HCL 10 MG CAPSULE PO ONE (10:28)
--- NOTE | 2018-08-18 10:57 | EKG ---
Test Reason : Blood Pressure : / mmHG Vent. Rate : 058 BPM Atrial Rate : 058 BPM P-R Int : 200 ms QRS Dur : 084 ms QT Int : 400 ms P-R-T Axes : 117 119 118 degrees QTc Int : 392 ms SUSPECT ARM LEAD REVERSAL, INTERPRETATION ASSUMES NO REVERSAL SINUS BRADYCARDIA LATERAL INFARCT , AGE UNDETERMINED NONSPECIFIC T WAVE ABNORMALITY ABNORMAL ECG Confirmed by JACQUELINE FREEDMAN MD ([id number]) on 08/18/2018 10:57:14 AM Referred By: MARY NICOLAS Confirmed By:JACQUELINE FREEDMAN MD
--- NOTE | 2018-08-18 12:04 | PN ---
BHS Progress Note (SOAP) Subjective: interrupted sleep, sweats, would like a dose of librium feeling withdrawal Objective: 08/18/18 12:02 Vital Signs Temperature 97.3 F L 08/18/18 09:41 Pulse Rate 68 08/18/18 09:41 Respiratory Rate 18 08/18/18 09:41 Blood Pressure 121/68 08/18/18 09:41 O2 Sat by Pulse Oximetry (%) Laboratory Tests 08/15/18 08/15/18 08/15/18 07:00 07:00 07:00 WBC 8.1 RBC 4.60 Hgb 10.8 L Hct 34.5 L MCV 75.1 L MCH 23.4 L MCHC 31.2 L RDW 15.0 Plt Count 244 D MPV 8.7 Sodium 138 Potassium 3.4 L Chloride 101 Carbon Dioxide 29 Anion Gap 8 BUN 6.7 L Creatinine 0.8 Est GFR (CKD-EPI)AfAm 115.74 Est GFR (CKD-EPI)NonAf 99.86 Random Glucose 71 L Calcium 9.0 Total Bilirubin 0.9 AST 24 ALT 21 Alkaline Phosphatase 130 H Total Protein 7.4 Albumin 3.5 RPR Titer HIV 1&2 Antibody Screen Negative HIV P24 Antigen Negative 08/15/18 07:00 WBC RBC Hgb Hct MCV MCH MCHC RDW Plt Count MPV Sodium Potassium Chloride Carbon Dioxide Anion Gap BUN Creatinine Est GFR (CKD-EPI)AfAm Est GFR (CKD-EPI)NonAf Random Glucose Calcium Total Bilirubin AST ALT Alkaline Phosphatase Total Protein Albumin RPR Titer Nonreactive HIV 1&2 Antibody Screen HIV P24 Antigen pt aox3 in nad ambulating Assessment: 08/18/18 12:03 withdrawal sx's Plan: cont detox increase fluids librium 10mg dose now. d/c in am
[2018-08-18] MEDS: hydrOXYzine PAMOATE 50 MG CAPSULE (FP) PO PRN ×2 (13:42→19:59)
[2018-08-18] MEDS: traZODone HCL 50 MG TABLET (FP) PO SCH (22:03)
[2018-08-18] MEDS: THIAMINE HCL 100 MG TABLET (FP) PO SCH (22:03)
[2018-08-18] MEDS ORDERED: COLLOIDAL OATMEAL 1 BAR EACH TP PRN (22:23)
[2018-08-18] MEDS: LIDOCAINE PATCH REMOVAL MC SCH (23:03)
[2018-08-18] MEDS: MELATONIN 5 MG TABLETS PO PRN (23:07)
[2018-08-19] MEDS: METHOCARBAMOL 500 MG TABLET PO PRN (03:31)
[2018-08-19] MEDS: LEVOTHYROXINE NA 25 MCG TABLET (FP) PO SCH (06:11)
[2018-08-19 06:27] VITALS: BP 141/74; PULSE 70; TEMP 97.3
[2018-08-19] MEDS: SERTRALINE HCL 50 MG TABLET (FP) PO SCH (09:08)
[2018-08-19] MEDS: GABAPENTIN 300 MG CAPSULE (FP) PO SCH (09:08)
[2018-08-19] MEDS: RANITIDINE HCL 150 MG TABLET (FP) PO SCH (09:08)
[2018-08-19] MEDS: POTASSIUM CHLORIDE TABS 20 MEQ TABLET.ER (FP) PO SCH (09:08)
[2018-08-19] MEDS: NAPROXEN 500 MG TABLET (FP) PO SCH (09:08)
[2018-08-19] MEDS: FERROUS SO4 325 MG TABLET (FP) PO SCH (09:11)
[2018-08-19] MEDS: LIDOCAINE 5% TOPICAL PATCH TP SCH (09:12)
[2018-08-19] MEDS: NICOTINE 21 MG/24 HOURS TOPICAL PATCH TD SCH (09:14)
[2018-08-19] MEDS: PRENATAL VITAMINS W/ FOLIC ACID TABLET (FP) PO SCH (09:15)
--- NOTE | 2018-08-19 16:24 | DS ---
[facility] Detox Discharge Summary Admission Date: 08/14/18 Discharge Date: 08/19/18 - History Additional Comments: Pt completed detox, for discharge home. States he will go home and attend "AA meetings in my neighborhood and avoid the negative people around" . In no acute distress Albuterol earlier sent to [place] pharmacy Vital Signs Temperature 97.3 F L 08/19/18 06:00 Pulse Rate 70 08/19/18 06:00 Respiratory Rate 18 08/19/18 06:00 Blood Pressure 141/74 08/19/18 06:00 O2 Sat by Pulse Oximetry (%) - Physical Exam Results Vital Signs: Vital Signs Temperature 97.3 F L 08/19/18 06:00 Pulse Rate 70 08/19/18 06:00 Respiratory Rate 18 08/19/18 06:00 Blood Pressure 141/74 08/19/18 06:00 O2 Sat by Pulse Oximetry (%) - Treatment Hospital Course: Detox Protocol Followed, Detoxed Safely, Responded well, Discharged Condition Good - Medication Discharge Medications: Ambulatory Orders Sertraline HCl [Zoloft -] 50 mg PO DAILY #30 tablet 10/08/16 Albuterol Sulfate Inhaler - [Ventolin Hfa Inhaler -] 2 inh PO Q4H PRN 08/14/18 traZODone HCL [Trazodone HCl] 50 mg PO HS 08/14/18 Albuterol Sulfate Inhaler - [Ventolin HFA Inhaler -] 2 puff IH Q4H PRN #1 inhaler 08/18/18 Levothyroxine Sodium [Levo-T] 50 mcg PO DAILY #30 tablet 08/18/18 Ranitidine [Zantac -] 150 mg PO BID #60 tablet 08/18/18 - AMA Did Patient Leave Against Medical Advice: No
--- NOTE | 2018-08-21 15:19 | EKG ---
Test Reason : Blood Pressure : / mmHG Vent. Rate : 062 BPM Atrial Rate : 062 BPM P-R Int : 206 ms QRS Dur : 084 ms QT Int : 392 ms P-R-T Axes : 064 062 065 degrees QTc Int : 397 ms NORMAL SINUS RHYTHM NORMAL ECG WHEN COMPARED WITH ECG OF 17-AUG-2018 17:05, NO SIGNIFICANT CHANGE WAS FOUND Confirmed by MARA PATTON MD ([id number]) on 08/21/2018 3:18:41 PM Referred By: MARY NICOLAS Confirmed By:MARA PATTON MD
== END 2018-08-19 09:15 | disposition home or self-care (01) | DRG 775 ==
LOC: YASAS 14:26 → Y6N 14:55
PROVIDERS: ADMIT Surgery; ATTEND Surgery
PROC: HZ2ZZZZ Detoxification Services for Substance Abuse Treatment (ICD-10-PCS; principal; 2018-08-14)
DX: F10.230 Alcohol dependence with withdrawal, uncomplicated (principal); F10.220 Alcohol dependence with intoxication, uncomplicated; F10.280 Alcohol dependence with alcohol-induced anxiety disorder; F10.282 Alcohol dependence with alcohol-induced sleep disorder; F17.210 Nicotine dependence, cigarettes, uncomplicated; F19.24 Other psychoactive substance dependence with psychoactive substance-induced mood disorder; F51.01 Primary insomnia; F41.9 Anxiety disorder, unspecified; F41.1 Generalized anxiety disorder; F31.9 Bipolar disorder, unspecified; D64.9 Anemia, unspecified; E87.6 Hypokalemia; J45.909 Unspecified asthma, uncomplicated; K21.9 Gastro-esophageal reflux disease without esophagitis; E03.9 Hypothyroidism, unspecified; Z88.8 Allergy status to other drugs, medicaments and biological substances
CPT/HCPCS: 36415; 80053; 85027; 86593; 87389; 93005; 93010; 94640; Q0162

== ENCOUNTER 2018-10-19 13:53 | Inpatient (IN) | payer OTHER ==
[2018-10-19 15:06] VITALS: BMI 23.2
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
[2018-10-19] MEDS ORDERED: ACETAMINOPHEN 325 MG TABLET (FP) PO PRN ×2 (15:49)
[2018-10-19] MEDS ORDERED: MENTHOL/PHENOL 1 EACH UD MM PRN (15:49)
[2018-10-19] MEDS ORDERED: MAGNESIUM HYDROX 2400MG/30ML ORAL SUSPENSION 30 ML CUP PO PRN (15:49)
[2018-10-19] MEDS ORDERED: MAGNESIUM CITRATE 300 ML BOTTLE PO PRN (15:49)
[2018-10-19] MEDS ORDERED: IBUPROFEN 400 MG TABLET (FP) PO PRN (15:49)
[2018-10-19] MEDS: chlordiazePOXIDE HCL 10 MG CAPSULE PO PRN (17:07)
[2018-10-19] MEDS: NICOTINE 21 MG/24 HOURS TOPICAL PATCH TD SCH (17:10)
[2018-10-19] MEDS: hydrOXYzine PAMOATE 25 MG CAPSULE (FP) PO PRN (18:43)
[2018-10-19] MEDS ORDERED: HYDROCORTISONE 0.5% TOPICAL CREAM 30 GM TUBE TP PRN (19:23)
[2018-10-19] MEDS: ALBUTEROL SO4 8 GM HFA INHALER IH PRN (22:20)
[2018-10-19] MEDS: traZODone HCL 50 MG TABLET (FP) PO SCH (22:21)
[2018-10-19] MEDS: chlordiazePOXIDE HCL 25 MG CAPSULE PO SCH (22:21)
[2018-10-19] MEDS: RANITIDINE HCL 150 MG TABLET (FP) PO SCH (22:21)
[2018-10-19] MEDS: GABAPENTIN 300 MG CAPSULE (FP) PO SCH (22:21)
[2018-10-19] MEDS: THIAMINE HCL 100 MG TABLET (FP) PO SCH (22:21)
[2018-10-19] MEDS: MELATONIN 5 MG TABLETS PO PRN (22:23)
[2018-10-19] MEDS ORDERED: ALBUTEROL SO4 0.083% IH SOL 2.5 MG/3 ML VIAL.NEB. NEB PRN (23:53)
[2018-10-20] MEDS: chlordiazePOXIDE HCL 25 MG CAPSULE PO SCH ×3 (05:38→22:02)
[2018-10-20] MEDS: GABAPENTIN 300 MG CAPSULE (FP) PO SCH ×3 (05:38→22:01)
[2018-10-20] MEDS: LEVOTHYROXINE NA 25 MCG TABLET (FP) PO SCH (06:04)
[2018-10-20] MEDS: BISMUTH SUBSALICYLATE 524 MG/30 ML UD PO PRN ×2 (09:00→17:50)
[2018-10-20] MEDS ORDERED: ONDANSETRON *ODT* 4 MG TABLET SL ONE (09:01)
--- NOTE | 2018-10-20 09:31 | PN ---
[facility] CIWA - CIWA Score Nausea/Vomitin Muscle Tremors: 3 Anxiety: 3 Agitation: 2 Paroxysmal Sweats: No Perspiration Orientation: 0-Oriented Tacttile Disturbances: 2-Mild Itch/Numbness/Burn Auditory Disturbances: 0-None Visual Disturbances: 0-None Headache: 0-None Present CIWA-Ar Total Score: 16 S Progress Note (SOAP) Subjective: Anxious, Tremors, Stomach Cramping, Vomiting, Diarrhea. Objective: PATIENT A & O X 3, OBSERVED AMBULATING ON UNIT UNASSISTED. 10/20/18 09:41 Vital Signs Temperature 96.7 F L 10/20/18 09:13 Pulse Rate 115 H 10/20/18 09:13 Respiratory Rate 20 10/20/18 09:13 Blood Pressure 133/85 10/20/18 09:13 O2 Sat by Pulse Oximetry (%) DETOX ADMISSION LAB RESULTS PENDING. 10/20/18 09:42 Assessment: 10/20/18 09:42 WITHDRAWAL SYMPTOMS. Plan: CONTINUE DETOX. PATIENT TO BE SENT TO [facility] ER FOR VOMITING, DIARRHEA, AND ABDOMINAL PAIN AFTER HE INADVERTENTLY CONSUMED LAUNDRY DETERGENT. SEE FOLLOWING [facility] PROGRESS NOTE.
--- NOTE | 2018-10-20 09:52 | PN ---
[facility] Progress Note Note: PATIENT DISPLAYING ONE EPISODE OF PROFUSE VOMITING. PATIENT ALSO REPORTS SEVERE ABDOMINAL PAIN AND DIARRHEA OF ONSET FROM SLIGHTLY EARLIER THIS AM. PATIENT REPORTS THAT HE DRANK A "BLUE" LIQUID IN A CUP THAT WAS ON HIS BEDSIDE TABLE A LITTLE EARLIER IN AM. PATIENT WAS UNSURE OF WHAT SPECIFICALLY LIQUID WAS. UPON FURTHER INVESTIGATION, Eric RUFF RN DISCOVERED THAT PATIENT'S ROOMMATE LEFT LAUNDRY DETERGENT FOR PATIENT TO USE AND THAT MR. FAIR INADVERTENTLY CONSUMED THE DETERGENT. PATIENT IS UNCERTAIN ABOUT QUANTITY OF LIQUID THAT HE CONSUMED. PATIENT POINTS PRIMARILY TO LOWER ABDOMEN AREA AFFECTED BY PAIN. VS: BP: 133/85; P: 115; RR: 20; T: 96.7. REPORT GIVEN TO DR. JACINTO AT [facility] ER. PATIENT TAKEN VIA AMBULANCE TO [facility] FOR FURTHER MEDICAL EVALUATION. INFORMATON ABOUT LAUNDRY DETERGENT ('PRODIGY' BY COMPANY '[employer]') SENT WITH PATIENT TO ER FOR MEDICAL STAFF THERE TO INVESTIGATE. Jimy PATEL NP
[2018-10-20 10:56] LABS: HEMATOCRIT 38.7 % (35.4-49); HEMOGLOBIN 12.3 GM/dL (11.7-16.9); MCH 22.8 pg (25.7-33.7); MCHC 31.9 g/dl (32.0-35.9); MEAN CELL VOLUME 71.6 fl (80-96); MEAN PLT VOLUME 8.8 fl (7.5-11.1); RDW 16.3 % (11.9-15.9); WHITE BLOOD COUNT 7.5 K/mm3 (4.0-10.0)
[2018-10-20 11:13] LABS: BILIRUBIN,TOTAL 0.6 mg/dL (0.2-1); BLOOD UREA NITROGEN 5.9 mg/dL (7-18); CREATININE 0.8 mg/dL (0.55-1.3); POTASSIUM 3.5 mmol/L (3.5-5.1); TOT PROT 6.4 g/dl (6.4-8.2)
[2018-10-20] MEDS: RANITIDINE HCL 150 MG TABLET (FP) PO SCH ×2 (11:54→22:02)
[2018-10-20] MEDS: PRENATAL VITAMINS W/ FOLIC ACID TABLET (FP) PO SCH (11:54)
[2018-10-20] MEDS: NICOTINE 21 MG/24 HOURS TOPICAL PATCH TD SCH (11:54)
[2018-10-20] MEDS ORDERED: ONDANSETRON *ODT* 4 MG TABLET SL PRN (14:01)
--- NOTE | 2018-10-20 14:44 | CONSULT ---
[facility] Psychiatric Consult - Data Date of interview: 10/20/18 Admission source: [facility] Identifying data: Patient not found on the unit. Mr Vallejo was sent earlier to [facility] for medical management (as per staff's notes).
[2018-10-20 16:27] LABS: PLATELET COUNT 138 K/MM3 (134-434)
--- NOTE | 2018-10-20 17:43 | PN ---
[facility] Progress Note Note: Patient returned from ED after being evaluated for ingestion of laundry detergent. [facility] Ed assessment, care, and plan reviewed. Patient is alert and oriented. Still c/o diffuse lower abdominal discomfort but says it is much better. Denies nausea. Abd S/NT/BS+. No vomiting or retching. Increased facial moisture. Gross tremors of hands at rest. Plan:Return to unit 3N. CMP in a.m. Encourage fluids Patient encouraged to notify staff of any vomiting, bleeding or blood diarrhea. Continue detox protocol.
[2018-10-20] MEDS: chlordiazePOXIDE HCL 10 MG CAPSULE PO PRN (17:50)
[2018-10-20] MEDS: METHOCARBAMOL 500 MG TABLET PO PRN (17:50)
[2018-10-20] MEDS: hydrOXYzine PAMOATE 25 MG CAPSULE (FP) PO PRN (17:50)
[2018-10-20] MEDS ORDERED: HYDROCORTISONE 1% TOPICAL CREAM 30 GM TUBE TP PRN (18:34)
[2018-10-20] MEDS ORDERED: PETROLATUM, WHITE 30 GM TUBE TP PRN ×2 (21:35→22:12)
[2018-10-20] MEDS: MELATONIN 5 MG TABLETS PO PRN (22:02)
[2018-10-20] MEDS: traZODone HCL 50 MG TABLET (FP) PO SCH (22:02)
[2018-10-20] MEDS: THIAMINE HCL 100 MG TABLET (FP) PO SCH (22:02)
[2018-10-21] MEDS: chlordiazePOXIDE 5 MG CAPSULE PO SCH ×3 (05:23→22:27)
[2018-10-21] MEDS: GABAPENTIN 300 MG CAPSULE (FP) PO SCH ×3 (05:23→22:27)
[2018-10-21] MEDS: ALBUTEROL SO4 8 GM HFA INHALER IH PRN (05:30)
[2018-10-21] MEDS: LEVOTHYROXINE NA 25 MCG TABLET (FP) PO SCH (06:55)
[2018-10-21] MEDS: RANITIDINE HCL 150 MG TABLET (FP) PO SCH ×2 (10:11→22:27)
[2018-10-21] MEDS: PRENATAL VITAMINS W/ FOLIC ACID TABLET (FP) PO SCH (10:11)
[2018-10-21] MEDS: NICOTINE 21 MG/24 HOURS TOPICAL PATCH TD SCH (10:13)
[2018-10-21 11:12] LABS: ALBUMIN 2.9 g/dl (3.4-5.0); BILIRUBIN,TOTAL 0.9 mg/dL (0.2-1); BLOOD UREA NITROGEN 6.3 mg/dL (7-18); CALCIUM 8.6 mg/dL (8.5-10.1); CREATININE 0.9 mg/dL (0.55-1.3); POTASSIUM 3.4 mmol/L (3.5-5.1); TOT PROT 6.2 g/dl (6.4-8.2)
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
[2018-10-21] MEDS ORDERED: POTASSIUM CHLORIDE TABS 20 MEQ TABLET.ER (FP) PO ONE (16:01)
--- NOTE | 2018-10-21 16:03 | PN ---
[facility] CIWA - CIWA Score Nausea/Vomitin-No Nausea/No Vomiting Muscle Tremors: 4-Moderate,w/Arms Extend Anxiety: 3 Agitation: 2 Paroxysmal Sweats: No Perspiration Orientation: 2-Disoriented Date<2 days Tacttile Disturbances: 1-Very Mild Itch/Numbness Auditory Disturbances: 0-None Visual Disturbances: 1-Very Mild Sensitivity Headache: 0-None Present CIWA-Ar Total Score: 13 [facility] Progress Note (SOAP) Subjective: Tremors, Anxious. Patient Returned from ER Yesterday (See [facility] Progress Note for 10/20/2018) Patient Denies Nausea, Vomiting, Abdominal Pain, and Diarrhea. Objective: PATIENT A & O X 2 (UNCERTAIN ABOUT CURRENT DAY / DATE). PATIENT OBSERVED AMBULATING ON UNIT UNASSISTED. IN NO ACUTE DISTRESS. 10/21/18 16:00 Vital Signs Temperature 95.6 F L 10/21/18 09:45 Pulse Rate 78 10/21/18 09:45 Respiratory Rate 20 10/21/18 09:45 Blood Pressure 118/69 10/21/18 09:45 O2 Sat by Pulse Oximetry (%) Laboratory Tests 10/20/18 10/20/18 10/20/18 07:30 07:30 07:30 WBC 7.5 RBC 5.40 Hgb 12.3 Hct 38.7 MCV 71.6 L MCH 22.8 L MCHC 31.9 L RDW 16.3 H Plt Count 138 D MPV 8.8 Sodium 143 Potassium 3.5 Chloride 109 H Carbon Dioxide 26 Anion Gap 8 BUN 5.9 L Creatinine 0.8 Est GFR (CKD-EPI)AfAm 115.74 Est GFR (CKD-EPI)NonAf 99.86 Random Glucose 86 Calcium 9.0 Total Bilirubin 0.6 AST 27 ALT 20 Alkaline Phosphatase 115 Total Protein 6.4 Albumin 3.0 L RPR Titer Nonreactive 10/21/18 07:30 WBC RBC Hgb Hct MCV MCH MCHC RDW Plt Count MPV Sodium 140 Potassium 3.4 L Chloride 106 Carbon Dioxide 26 Anion Gap 8 BUN 6.3 L Creatinine 0.9 Est GFR (CKD-EPI)AfAm 110.27 Est GFR (CKD-EPI)NonAf 95.14 Random Glucose 93 Calcium 8.6 Total Bilirubin 0.9 AST 18 ALT 19 Alkaline Phosphatase 91 Total Protein 6.2 L Albumin 2.9 L RPR Titer LABS NOTED. 08/17/19 16:02 RESULTS OF REPEAT CMP NOTED. Assessment: 10/21/18 16:02 WITHDRAWAL SYMPTOMS. HYPOKALEMIA. Plan: CONTINUE DETOX. INCREASE DAILY PO WATER INTAKE. K-DUR, 40 MEQ PO X 1 DOSE NOW. RE-CHECK K LEVEL TOMORROW AM TO SEE IF ANY INCREASE IN K LEVEL.
[2018-10-21] MEDS: chlordiazePOXIDE HCL 10 MG CAPSULE PO PRN (17:32)
[2018-10-21] MEDS ORDERED: NICOTINE POLACRILEX 2 MG GUM BUC PRN (19:52)
[2018-10-21] MEDS: THIAMINE HCL 100 MG TABLET (FP) PO SCH (22:27)
[2018-10-21] MEDS: MELATONIN 5 MG TABLETS PO PRN (22:28)
[2018-10-21] MEDS: traZODone HCL 50 MG TABLET (FP) PO SCH (22:28)
[2018-10-22] MEDS ORDERED: chlordiazePOXIDE HCL 10 MG CAPSULE PO PRN
[2018-10-22] MEDS: MAG HYDROX/AL HYDROX/SIMETH 30 ML UNIT-DOSE CUP PO PRN ×2 (02:32→10:19)
[2018-10-22] MEDS: METHOCARBAMOL 500 MG TABLET PO PRN (02:33)
[2018-10-22] MEDS: hydrOXYzine PAMOATE 25 MG CAPSULE (FP) PO PRN (02:34)
[2018-10-22] MEDS: chlordiazePOXIDE HCL 10 MG CAPSULE PO SCH ×3 (05:58→22:20)
[2018-10-22] MEDS: GABAPENTIN 300 MG CAPSULE (FP) PO SCH ×3 (05:58→22:21)
[2018-10-22] MEDS: LEVOTHYROXINE NA 25 MCG TABLET (FP) PO SCH (07:30)
[2018-10-22] MEDS ORDERED: SERTRALINE HCL 50 MG TABLET (FP) PO SCH (10:00)
[2018-10-22] MEDS: NICOTINE 21 MG/24 HOURS TOPICAL PATCH TD SCH (10:19)
[2018-10-22] MEDS: PRENATAL VITAMINS W/ FOLIC ACID TABLET (FP) PO SCH (10:19)
[2018-10-22] MEDS: ALBUTEROL SO4 8 GM HFA INHALER IH PRN (10:21)
[2018-10-22] MEDS: RANITIDINE HCL 150 MG TABLET (FP) PO SCH ×2 (11:15→22:22)
--- NOTE | 2018-10-22 14:06 | PN ---
[facility] CIWA - CIWA Score Nausea/Vomitin-No Nausea/No Vomiting Muscle Tremors: 3 Anxiety: 2 Agitation: 2 Paroxysmal Sweats: 2 Orientation: 0-Oriented Tacttile Disturbances: 0-None Auditory Disturbances: 0-None Visual Disturbances: 0-None Headache: 0-None Present CIWA-Ar Total Score: 9 S Progress Note (SOAP) Subjective: 57 years old male admitted on 10/19/18 for acute alcohol withdrawal sx management doing well with librium detox regimen denies GI discomfort tolerate food and fluid well seen by psychiatrist resume medication history of asthma hypothyroid gerd Objective: 10/22/18 14:09 Vital Signs Temperature 97.1 F L 10/22/18 09:42 Pulse Rate 75 10/22/18 09:42 Respiratory Rate 18 10/22/18 09:42 Blood Pressure 106/65 10/22/18 09:42 O2 Sat by Pulse Oximetry (%) Laboratory Last Values WBC 7.5 K/mm3 (4.0-10.0) 10/20/18 07:30 RBC 5.40 M/mm3 (4.00-5.60) 10/20/18 07:30 Hgb 12.3 GM/dL (11.7-16.9) 10/20/18 07:30 Hct 38.7 % (35.4-49) 10/20/18 07:30 MCV 71.6 fl (80-96) L 10/20/18 07:30 MCH 22.8 pg (25.7-33.7) L 10/20/18 07:30 MCHC 31.9 g/dl (32.0-35.9) L 10/20/18 07:30 RDW 16.3 % (11.9-15.9) H 10/20/18 07:30 Plt Count 138 K/MM3 (134-434) D 10/20/18 07:30 MPV 8.8 fl (7.5-11.1) 10/20/18 07:30 Sodium 140 mmol/L (136-145) 10/21/18 07:30 Potassium 4.3 mmol/L (3.5-5.1) 10/22/18 08:00 Chloride 106 mmol/L (98-107) 10/21/18 07:30 Carbon Dioxide 26 mmol/L (21-32) 10/21/18 07:30 Anion Gap 8 MMOL/L (8-16) 10/21/18 07:30 BUN 6.3 mg/dL (7-18) L 10/21/18 07:30 Creatinine 0.9 mg/dL (0.55-1.3) 10/21/18 07:30 Est GFR (CKD-EPI)AfAm 110.27 10/21/18 07:30 Est GFR (CKD-EPI)NonAf 95.14 10/21/18 07:30 Random Glucose 93 mg/dL (74-106) 10/21/18 07:30 Calcium 8.6 mg/dL (8.5-10.1) 10/21/18 07:30 Total Bilirubin 0.9 mg/dL (0.2-1) 10/21/18 07:30 AST 18 U/L (15-37) 10/21/18 07:30 ALT 19 U/L (13-61) 10/21/18 07:30 Alkaline Phosphatase 91 U/L (45-117) 10/21/18 07:30 Total Protein 6.2 g/dl (6.4-8.2) L 10/21/18 07:30 Albumin 2.9 g/dl (3.4-5.0) L 10/21/18 07:30 RPR Titer Nonreactive (NONREACTIVE) 10/20/18 07:30 lab noted repeat camp within normal most likely camp not influenced by the laundry detergent patient denies suicidal ideation Assessment: 10/22/18 14:11 alcohol withdrawal sx alert oriented x 3 10/22/18 14:11 S1S2 regular Plan: continue librium detox regimen
[2018-10-22] MEDS ORDERED: DICYCLOMINE HCL 10 MG CAPSULE PO ONE (15:02)
[2018-10-22] MEDS: BISMUTH SUBSALICYLATE 524 MG/30 ML UD PO PRN (19:15)
[2018-10-22] MEDS: traZODone HCL 50 MG TABLET (FP) PO SCH (22:20)
[2018-10-22] MEDS: THIAMINE HCL 100 MG TABLET (FP) PO SCH (22:20)
[2018-10-22] MEDS: MELATONIN 5 MG TABLETS PO PRN (22:23)
[2018-10-23] MEDS ORDERED: chlordiazePOXIDE HCL 10 MG CAPSULE PO ONE (05:00)
[2018-10-23] MEDS: GABAPENTIN 300 MG CAPSULE (FP) PO SCH (05:36)
[2018-10-23 07:03] VITALS: BP 98/71; PULSE 71; TEMP 96.9
[2018-10-23] MEDS: LEVOTHYROXINE NA 25 MCG TABLET (FP) PO SCH (07:20)
--- NOTE | 2018-10-23 11:27 | DS ---
[facility] Detox Discharge Summary Admission Date: 10/19/18 Discharge Date: 10/23/18 - History Present History: Alcohol Dependence Additional Comments: 57 years old male admitted on 10/19/18 for acute alcohol withdrawal sx management doing well with librium detox regimen no complication throughout the detox stay patient accidentally ingested laundry detergent treated in ER return to [facility] continue alcohol detox seen by psychiatrist no intervention at this time patient denies suicidal ideation medical history of asthma neuropathy hypothyroid gerd patient perfers community support approach at [place] Pertinent Past History: transportation from detox facility to community support service at [place] arranged - Physical Exam Results Vital Signs: Vital Signs Temperature 96.9 F L 10/23/18 07:03 Pulse Rate 71 10/23/18 07:03 Respiratory Rate 18 10/23/18 07:03 Blood Pressure 98/71 10/23/18 07:03 O2 Sat by Pulse Oximetry (%) Pertinent Admission Physical Exam Findings: alcohol withdrawal sx Laboratory Last Values WBC 7.5 K/mm3 (4.0-10.0) 10/20/18 07:30 RBC 5.40 M/mm3 (4.00-5.60) 10/20/18 07:30 Hgb 12.3 GM/dL (11.7-16.9) 10/20/18 07:30 Hct 38.7 % (35.4-49) 10/20/18 07:30 MCV 71.6 fl (80-96) L 10/20/18 07:30 MCH 22.8 pg (25.7-33.7) L 10/20/18 07:30 MCHC 31.9 g/dl (32.0-35.9) L 10/20/18 07:30 RDW 16.3 % (11.9-15.9) H 10/20/18 07:30 Plt Count 138 K/MM3 (134-434) D 10/20/18 07:30 MPV 8.8 fl (7.5-11.1) 10/20/18 07:30 Sodium 140 mmol/L (136-145) 10/21/18 07:30 Potassium 4.3 mmol/L (3.5-5.1) 10/22/18 08:00 Chloride 106 mmol/L (98-107) 10/21/18 07:30 Carbon Dioxide 26 mmol/L (21-32) 10/21/18 07:30 Anion Gap 8 MMOL/L (8-16) 10/21/18 07:30 BUN 6.3 mg/dL (7-18) L 10/21/18 07:30 Creatinine 0.9 mg/dL (0.55-1.3) 10/21/18 07:30 Est GFR (CKD-EPI)AfAm 110.27 10/21/18 07:30 Est GFR (CKD-EPI)NonAf 95.14 10/21/18 07:30 Random Glucose 93 mg/dL (74-106) 10/21/18 07:30 Calcium 8.6 mg/dL (8.5-10.1) 10/21/18 07:30 Total Bilirubin 0.9 mg/dL (0.2-1) 10/21/18 07:30 AST 18 U/L (15-37) 10/21/18 07:30 ALT 19 U/L (13-61) 10/21/18 07:30 Alkaline Phosphatase 91 U/L (45-117) 10/21/18 07:30 Total Protein 6.2 g/dl (6.4-8.2) L 10/21/18 07:30 Albumin 2.9 g/dl (3.4-5.0) L 10/21/18 07:30 RPR Titer Nonreactive (NONREACTIVE) 10/20/18 07:30 lab noted Vital Signs Temperature 96.9 F L 10/23/18 07:03 Pulse Rate 71 10/23/18 07:03 Respiratory Rate 18 10/23/18 07:03 Blood Pressure 98/71 10/23/18 07:03 O2 Sat by Pulse Oximetry (%) patient agrees to bring in medication list and lab report to primary care provider in the community health service discuss alcohol related GI insult as well as avoidable injuries - Treatment Hospital Course: Detox Protocol Followed, Detoxed Safely, Responded well, Discharged Condition Good, Rehab Referral Accepted Patient has Accepted a Rehab Referral to: community support approach - Medication Discharge Medications: Ambulatory Orders Sertraline HCl [Zoloft -] 50 mg PO DAILY #30 tablet 10/08/16 Albuterol Sulfate Inhaler - [Ventolin HFA Inhaler -] 2 inh PO Q4H PRN 08/14/18 traZODone HCL [Trazodone HCl] 50 mg PO HS 08/14/18 Ranitidine [Zantac -] 150 mg PO BID #60 tablet 08/18/18 Gabapentin 600 mg PO TID 10/19/18 Albuterol Sulfate Inhaler - [Ventolin HFA Inhaler -] 2 puff IH Q4H PRN #1 inhaler 10/22/18 Levothyroxine Sodium [Levo-T] 50 mcg PO DAILY #30 tablet 10/22/18 - Diagnosis (1) Alcohol dependence with uncomplicated withdrawal Status: Acute (2) Acid reflux Status: Chronic Qualifiers: Esophagitis presence: without esophagitis Qualified Code(s): K21.9 - Gastro -esophageal reflux disease without esophagitis (3) Asthma Status: Chronic Qualifiers: Asthma severity: mild Asthma persistence: intermittent Asthma complication type: uncomplicated Qualified Code(s): J45.20 - Mild intermittent asthma, uncomplicated (4) Hypothyroidism Status: Chronic Qualifiers: Hypothyroidism type: unspecified (5) Substance induced mood disorder Status: Suspected - AMA Did Patient Leave Against Medical Advice: No
== END 2018-10-23 08:48 | disposition home or self-care (01) | DRG 774 ==
LOC: YASAS 13:53 → Y3N 16:21
PROVIDERS: ADMIT Surgery; ATTEND Surgery
PROC: HZ2ZZZZ Detoxification Services for Substance Abuse Treatment (ICD-10-PCS; principal; 2018-10-19)
DX: F10.230 Alcohol dependence with withdrawal, uncomplicated (principal); F14.10 Cocaine abuse, uncomplicated; F17.210 Nicotine dependence, cigarettes, uncomplicated; F19.24 Other psychoactive substance dependence with psychoactive substance-induced mood disorder; F41.9 Anxiety disorder, unspecified; F31.9 Bipolar disorder, unspecified; E03.9 Hypothyroidism, unspecified; J45.20 Mild intermittent asthma, uncomplicated; E87.6 Hypokalemia; R11.10 Vomiting, unspecified; R19.7 Diarrhea, unspecified; R10.9 Unspecified abdominal pain; T49.2X1A Poisoning by local astringents and local detergents, accidental (unintentional), initial encounter; Y92.230 Patient room in hospital as the place of occurrence of the external cause; Z91.19 Patient's noncompliance with other medical treatment and regimen
CPT/HCPCS: 36415; 80053; 84132; 85027; 86593; 94640

== ENCOUNTER 2018-10-20 10:02 | Emergency (ER) | payer OTHER ==
[2018-10-20 10:10] VITALS: BMI 23.2
--- NOTE | 2018-10-20 10:15 | PDOC ---
History of Present Illness - General Chief Complaint: Ingestion Stated Complaint: ABDOMINAL PAIN Time Seen by Provider: 10/20/18 10:14 History Source: Patient Exam Limitations: No Limitations - History of Present Illness Initial Comments: 10/20/18 11:33 57 yo M pmh etoh dependence, bpd, anxiety sent from [facility] after accidental ingestion of 4-6 oz of Prodigy laundry detergent that was near his breakfast tray. Ingestion occurred around 8am today - thought detergent was antolin-aid or protein drink. He subsequently felt lightheaded and dizzy, had an episode of perfuse vomiting while receiving respiratory treatment for copd/asthma, and had an episode of perfuse watery nonbloody BM. Currently only endorsing lower abdominal pain. Denies chest pain, sob, difficulty breathing or swallowing, nausea. h/o DTs, pt is concerned about missing his librium dose. Past History - Past Medical History Allergies/Adverse Reactions: Allergies Allergy/AdvReac Type Severity Reaction Status Date / Time diphenhydramine Allergy Severe Itching Verified 10/20/18 10:06 [From Benadryl] haloperidol [From Haldol] AdvReac Severe Rash Verified 10/20/18 10:06 Home Medications: Ambulatory Orders Sertraline HCl [Zoloft -] 50 mg PO DAILY #30 tablet 10/08/16 Albuterol Sulfate Inhaler - [Ventolin Hfa Inhaler -] 2 inh PO Q4H PRN 08/14/18 traZODone HCL [Trazodone HCl] 50 mg PO HS 08/14/18 Albuterol Sulfate Inhaler - [Ventolin HFA Inhaler -] 2 puff IH Q4H PRN #1 inhaler 08/18/18 Levothyroxine Sodium [Levo-T] 50 mcg PO DAILY #30 tablet 08/18/18 Ranitidine [Zantac -] 150 mg PO BID #60 tablet 08/18/18 Gabapentin 600 mg PO TID 10/19/18 Anemia: Yes (BORDERLINE,NO MED) Asthma: Yes (Pt is on MDI) Cancer: No Cardiac Disorders: No CVA: No COPD: No CHF: No Dementia: No Diabetes: No GI Disorders: Yes (GERD) Disorders: No HTN: No Hypercholesterolemia: No Kidney Stones: No Seizures: No Thyroid Disease: Yes (ON MED) - Surgical History Abdominal Surgery: No Appendectomy: No Cardiac Surgery: No Cholecystectomy: No Lung Surgery: No Neurologic Surgery: No Orthopedic Surgery: Yes (bilateral knee sx.) - Reproductive History Testicular Surgery: No - Immunization History Immunization Up to Date: No - Suicide/Smoking/Psychosocial Hx Smoking History: Current every day smoker Have you smoked in the past 12 months: Yes Number of Cigarettes Smoked Daily: 5 Information on smoking cessation initiated: No 'Breaking Loose' booklet given: 10/19/18 Hx Alcohol Use: Yes Drug/Substance Use Hx: Yes Substance Use Type: Alcohol Hx Substance Use Treatment: No *Physical Exam - Vital Signs Last Vital Signs Temp Pulse Resp BP Pulse Ox 97.8 F 102 H 18 111/70 98 10/20/18 10:07 10/20/18 10:07 10/20/18 10:07 10/20/18 10:07 10/20/18 10:07 - Physical Exam Comments: 10/20/18 11:33 GEN: NAD, nontoxic. AAOx3 HEENT: NC/AT, EOMI, PERRLA, CN II-XII intact. Moist mucous membranes. Poor dentition. CV: S1/S2, RRR, no m/r/g LUNG: CTAB, no wheezes, crackles, rales, rhonchi. GI: (+) TTP of the lower abdomen, suprapubically, otherwise soft, ndnt, +BS, no guarding, no rebound. No masses. ED Treatment Course - LABORATORY CBC & Chemistry Diagram: 10/20/18 11:15 10/20/18 11:15 Medical Decision Making - Medical Decision Making 10/20/18 10:46 57 yo M presenting with accidental ingestion of laundry detergent. Had an episode of vomiting and water stool, currently only complaining of lower abdominal pain. No respiratory compromise, able to swallow. Exam significant for tachycardia and lower abdominal TTP. Material Data Sheet for [employer] Prodigy - general purpose concentrated detergent that is mildly alkaline. First aid instructions: do not induce vomiting. Drink copious amounts of water. Discussed incident with Daquan Bourgeois at [facility] who states the detergent was left table side (also used for breakfast tray) by patient's roommate so patient could use for laundry later. Mr. Bourgeois estimates patient drank about 4-6 oz of likely undiluted detergent. Had one episode of perfuse vomiting while receiving respiratory treatment for asthma/ copd. Data sheet for detergent sent. Accidental ingestion - CBC, CMP, lipase - EKG - Tox consult - f/u hx w/ [facility] - will PO challenge Etoh h/o DTs - Librium 25 PO 10/20/18 11:15 Discussed patient with [facility] poison control, Brianna, who provided the following recs: - look out for stridor, drooling, oral irritation. These are signs requiring GI consult - supportive care - observation period of 4-6 hours - can dc if PO tolerant 10/20/18 12:45 Reassessed patient: tolerated liquids will advance to solid. still having diarrhea. decreased abdominal pain. eager to return to detox. 10/20/18 14:02 Patient has hyperactive bowel sounds, soft abdomen. Continues to have diarrhea and decreasing abdominal pain. Feeling better. Will give loperamide and tylenol for symptom control. *DC/Admit/Observation/Transfer Diagnosis at time of Disposition: Ingestion of detergent or soap - Referrals - Patient Instructions Printed Discharge Instructions: DI for Accidental Ingestion -- Adult Additional Instructions: You were treated in the Emergency Department for accidental ingestion of laundry detergent. Expect the abdominal pain to decrease over time. We expect the diarrhea to continue for today. Continue eating and drinking fluids as tolerated. Drink water to stay hydrated. Follow up with your primary care doctor regarding this visit. Return to the Emergency Department IMMEDIATELY if you experience any of the following: - worsening or severe abdominal pain - difficulty breathing or shortness of breath - intractable vomiting - ANYTHING that concerns you TO [facility]: PLEASE RECHECK BLOODWORK W/ CLOSE ATTN: ELECTROLYTES IN THE MORNING 10/21/18 - Post Discharge Activity
[2018-10-20] MEDS ORDERED: diazePAM CARPU-JECT 10 MG/2 ML DISP.SYRIN IVPUSH ONE (10:42)
[2018-10-20] MEDS ORDERED: SODIUM CHLORIDE 0.9% 500 ML INFUS.BAG IV ONE (10:42)
--- NOTE | 2018-10-20 11:01 | PDOC ---
Documentation entered by Uche Pack SCRIBE, acting as scribe for Refugio Grimm MD. Refugio Grimm MD: This documentation has been prepared by the dwaineSirena Elijah, SCRIBE, under my direction and personally reviewed by me in its entirety. I confirm that the documentation accurately reflects all work, treatment, procedures, and medical decision making performed by me. Attending Attestation - Resident Resident Name: NicholsMushtaq - ED Attending Attestation I have performed the following: I have examined & evaluated the patient, The case was reviewed & discussed with the resident, I agree w/resident's findings & plan - HPI HPI: 10/20/18 10:38 Patient is a 57 year old male with a significant past medical history of Etoh Abuse (Last Drink x2 days ago) who presents to the ED from [facility] after accidental ingestion of approx 3-4 oz laundry detergent this morning. The patient reports that the detergent was blue in color and was put alongside his breakfast, he drank it because he thought it wa sa protein shake - denies any si or intentions of arming himself. After ingesting the laundry, 10-15 minutes later, the patient vomited, felt dizziness, lightheadedness, and had a cramping lower abdominal pain and x1 episode of watery diarrhea. At this time the patient 's only complaint is abdominal pain which is constant, dull and has been improving since arriving in the ED. Allergies: Diphenydramine and Haloperidol Social History: Tobacco User - Physicial Exam PE: 10/20/18 10:43 GENERAL: The patient is awake, alert, and fully oriented, Nontoxic - in no acute distress. HEAD: Normocephalic, atraumatic. EYES: extraocular movements intact, sclera anicteric, conjunctiva clear. ENT: Normal voice, Moist mucous membranes. oropharaynx clear without erythmea/ inudruation, patent, toleratin goral secretions NECK: Normal range of motion, supple without lymphadenopathy, JVD, or masses. LUNGS: Breath sounds equal, clear to auscultation bilaterally. No wheezes, no crackles, no rales. HEART: Regular rate and rhythm, normal S1 and S2 without murmur, rub or gallop. ABDOMEN: +mild Lower Abdominal Tenderness without rebound/guarding. EXTREMITIES: Normal range of motion, no edema. No clubbing or cyanosis. No cords, erythema, or tenderness. NEUROLOGICAL: No facial asymmetry, Normal speech, normal gait. PSYCH: Normal mood, normal affect. SKIN: Warm, Dry, normal turgor, no rashes or lesions noted. - Medical Decision Making 10/20/18 10:58 57y M hx of etoh abuse coming from [facility] detox for evalution of accidental ingestion of a blue detergent approx 8am today. Pt had an episode of vomiting, and one peisoes of loose nonbloody stool. Pt now complaining of abdominal pain in the LLQ, constant and dull. plan for supportive care fluids will ck basic labs, ekg will dw poison control will monitor 10/20/18 12:39 case was discussed with poison control by dr. Nichols, recommend supportive mgmgt and observation for 4-6 hrs lbas reviewed pt noted with leukocytosis, suspect may be stress related vs. infectious pt doing well abd soft notnende, no furthe rovmiting. anticpate dc back to [facility] to continue detox Heart Score/ECG Review - ECG Impressions Comment:: 10/20/18 11:16 Twelve-lead EKG was performed and reviewed by me. There is normal sinus rhythm rate of 100 The axis is normal. The intervals are normal. There is normal R wave progression There are no ST or T wave abnormalities.
[2018-10-20 11:41] LABS: BASO % 0.3 % (0-2.0); HEMATOCRIT 43.6 % (35.4-49); HEMOGLOBIN 13.8 GM/dL (11.7-16.9); LYMPH % 9.6 % (8-40); MCH 22.6 pg (25.7-33.7); MCHC 31.6 g/dl (32.0-35.9); MEAN CELL VOLUME 71.5 fl (80-96); MEAN PLT VOLUME 8.4 fl (7.5-11.1); MONO % 4.4 % (3.8-10.2); NEUT % 83.7 % (42.8-82.8); PLATELET COUNT 161 K/MM3 (134-434); RBC 6.11 M/mm3 (4.00-5.60); RDW 16.4 % (11.9-15.9); WHITE BLOOD COUNT 13.7 K/mm3 (4.0-10.0)
[2018-10-20] MEDS ORDERED: chlordiazePOXIDE HCL 25 MG CAPSULE PO ONE (11:42)
[2018-10-20] MEDS ORDERED: chlordiazePOXIDE HCL 25 MG CAPSULE ONE (11:51)
[2018-10-20 12:02] LABS: ALBUMIN 3.6 g/dl (3.4-5.0); BILIRUBIN,TOTAL 0.7 mg/dL (0.2-1); BLOOD UREA NITROGEN 6.2 mg/dL (7-18); CALCIUM 9.6 mg/dL (8.5-10.1); TOT PROT 7.8 g/dl (6.4-8.2)
[2018-10-20] MEDS ORDERED: POTASSIUM CHLORIDE TABS 20 MEQ TABLET.ER (FP) PO ONE ×2 (12:32→12:51)
[2018-10-20] MEDS ORDERED: ACETAMINOPHEN 1000 MG/100 ML VIAL (NON FORMULARY) IVPB ONE (13:37)
[2018-10-20] MEDS ORDERED: LOPERAMIDE HCL 1 MG/5 ML UNIT DOSE CUP PO ONE (13:37)
[2018-10-20 14:42] VITALS: BP 101/65; PULSE 93; TEMP 98.5
[2018-10-20] MEDS ORDERED: LOPERAMIDE HCL 2 MG CAPSULE ONE (14:56)
[2018-10-20] MEDS ORDERED: ACETAMINOPHEN INJECTION 100 ML IVPB ONE (14:56)
--- NOTE | 2018-10-22 11:42 | EKG ---
Test Reason : Blood Pressure : / mmHG Vent. Rate : 100 BPM Atrial Rate : 100 BPM P-R Int : 170 ms QRS Dur : 098 ms QT Int : 350 ms P-R-T Axes : 066 071 065 degrees QTc Int : 451 ms NORMAL SINUS RHYTHM NORMAL ECG WHEN COMPARED WITH ECG OF 17-AUG-2018 17:54, VENT. RATE HAS INCREASED BY 38 BPM QT HAS LENGTHENED Confirmed by IJM BENITEZ, NAZANIN ([id number]) on 10/22/2018 11:41:53 AM Referred By: Confirmed By:NAZANIN FERNANDEZ MD
== END 2018-10-20 17:06 | disposition home or self-care (01) ==
LOC: JER 10:02
PROC: 3E0337Z Introduction of Electrolytic and Water Balance Substance into Peripheral Vein, Percutaneous Approach (ICD-10-PCS; principal; 2018-10-20)
PROC: 3E033NZ Introduction of Analgesics, Hypnotics, Sedatives into Peripheral Vein, Percutaneous Approach (ICD-10-PCS; 2018-10-20)
DX: T65.891A Toxic effect of other specified substances, accidental (unintentional), initial encounter (principal); Y92.239 Unspecified place in hospital as the place of occurrence of the external cause; F17.210 Nicotine dependence, cigarettes, uncomplicated; K21.9 Gastro-esophageal reflux disease without esophagitis; E07.9 Disorder of thyroid, unspecified
CPT/HCPCS: 36415; 80053; 83690; 85025; 93005; 93010; 96374; 99284-25; J0131

== ENCOUNTER 2019-02-07 14:02 | Inpatient (IN) | payer OTHER ==
--- NOTE | 2019-02-07 15:40 | PDOC ---
History of Present Illness - General Chief Complaint: Alcohol intoxication Stated Complaint: SOB,ABD APIN Time Seen by Provider: 02/07/19 15:39 History Source: Patient Exam Limitations: No Limitations - History of Present Illness Initial Comments: 02/07/19 15:40 Diego Vallejo is a 58M with H alcohol and cocaine use disorder sent from [facility] for intoxication vs. withdrawal. Patient reports he was at [facility] to go to detox when he began to feel sick, with abdominal pain, sweating, nausea, and tremors, and was sent to [facility] for further evaluation. Has a bed at [facility]. Says he drinks 2 pints of vodka per day, last drink this morning before deciding to go to detox. Also uses crack cocaine, last use 2 days ago. Smokes 0.5 ppd. Has not eaten in 2 days, says his entire stomach hurts and he feels nauseated, vomited once today. Denies chest pain, SOB, dizziness, palpitations, weakness, urinary symptoms. Says he feels itchy all over. Denies any past cardiac, pulmonary, or hepatic disease. Past History - Past Medical History Allergies/Adverse Reactions: Allergies Allergy/AdvReac Type Severity Reaction Status Date / Time diphenhydramine Allergy Severe Itching Verified 02/07/19 14:24 [From Benadryl] haloperidol [From Haldol] AdvReac Severe Rash Verified 02/07/19 14:24 Home Medications: Ambulatory Orders Sertraline HCl [Zoloft -] 50 mg PO DAILY #30 tablet 10/08/16 Albuterol Sulfate Inhaler - [Ventolin HFA Inhaler -] 2 inh PO Q4H PRN 08/14/18 traZODone HCL [Trazodone HCl] 50 mg PO HS 08/14/18 Ranitidine [Zantac -] 150 mg PO BID #60 tablet 08/18/18 Gabapentin 600 mg PO TID 10/19/18 Albuterol Sulfate Inhaler - [Ventolin HFA Inhaler -] 2 puff IH Q4H PRN #1 inhaler 10/22/18 Levothyroxine Sodium [Levo-T] 50 mcg PO DAILY #30 tablet 10/22/18 Anemia: Yes (BORDERLINE,NO MED) Asthma: Yes (Pt is on MDI) Cancer: No Cardiac Disorders: No CVA: No COPD: No CHF: No Dementia: No Diabetes: No GI Disorders: Yes (GERD) Disorders: No HTN: No Hypercholesterolemia: No Kidney Stones: No Seizures: No Thyroid Disease: Yes (ON MED) - Surgical History Abdominal Surgery: No Appendectomy: No Cardiac Surgery: No Cholecystectomy: No Lung Surgery: No Neurologic Surgery: No Orthopedic Surgery: Yes (bilateral knee sx.) - Reproductive History Testicular Surgery: No - Immunization History Immunization Up to Date: No - Psycho Social/Smoking Cessation Hx Smoking History: Current every day smoker Have you smoked in the past 12 months: Yes Number of Cigarettes Smoked Daily: 10 Information on smoking cessation initiated: No 'Breaking Loose' booklet given: 10/19/18 Hx Alcohol Use: Yes Drug/Substance Use Hx: Yes Substance Use Type: Alcohol Hx Substance Use Treatment: No Review of Systems - Review of Systems Able to Perform ROS?: Yes Constitutional: Yes: Chills, Diaphoresis. No: Fever, Weakness HEENTM: No: Symptoms Reported Respiratory: No: Symptoms reported Cardiac (ROS): No: Chest Pain, Irregular Heart Rate, Palpitations ABD/GI: Yes: Nausea, Vomiting. No: Constipated, Diarrhea : No: Symptoms Reported Musculoskeletal: No: Symptoms Reported Integumentary: No: Symptoms Reported Neurological: Yes: Headache, Tremors. No: Seizure Endocrine: No: Symptoms Reported Hematologic/Lymphatic: No: Symptoms Reported All Other Systems: Reviewed and Negative *Physical Exam - Vital Signs Last Vital Signs Temp Pulse Resp BP Pulse Ox 98.1 F 106 H 20 118/68 95 02/07/19 14:26 02/07/19 14:26 02/07/19 14:26 02/07/19 14:26 02/07/19 14:26 - Physical Exam General Appearance: Yes: Appropriately Dressed, Moderate Distress, Intoxicated, Thin HEENT: positive: EOMI, ARCELIA, Normal Voice, Symmetrical, Pharynx Normal, Other ( no evidence of tongue fasciculations, jaundice). negative: Scleral Icterus (R) , Scleral Icterus (L), Pharyngeal Erythema, Tonsillar Exudate, Tonsillar Erythema Neck: positive: Trachea midline, Normal Thyroid, Supple. negative: Tender, Lymphadenopathy (R), Lymphadenopathy (L) Respiratory/Chest: positive: Lungs Clear, Normal Breath Sounds. negative: Chest Tender, Respiratory Distress, Accessory Muscle Use, Labored Respiration, Crackles, Rales, Rhonchi, Stridor, Wheezing Cardiovascular: positive: Regular Rhythm, Tachycardia Gastrointestinal/Abdominal: positive: Normal Bowel Sounds, Flat, Soft. negative : Tender, Guarding, Rebound Musculoskeletal: positive: Normal Inspection. negative: CVA Tenderness Extremity: positive: Normal Capillary Refill, Normal Inspection, Normal Range of Motion. negative: Tender Integumentary: positive: Normal Color, Dry, Warm Neurologic: positive: Alert, Normal Mood/Affect, Normal Response ED Treatment Course - LABORATORY CBC & Chemistry Diagram: 02/07/19 16:52 02/07/19 20:48 Medical Decision Making - Medical Decision Making 02/07/19 15:40 Diego Vallejo is a 58M with H alcohol and cocaine use disorder sent from [facility] for intoxication vs. withdrawal. Patient presents very anxious and diaphoretic, and has had these symptoms in the past, no history of seizures. No tongue fasciculations noted. Given 2mg IM Ativan for agitation vs. withdrawal. Patient calmed down after this initial dose , 2mg more ordered IV. Still complaining of abdominal pain in the setting of alcohol use, concern for pancreatitis vs. gastritis, less likely to be appendicitis vs. gallbladder pathology vs. renal stone. Ordered alcohol/drug use order set with lipase and BGM. 02/07/19 18:09 Labs notable for: - BAL 249 consistent with intoxication - Lactate 3.9 - K 2.5 - Mg 1.5 - Lipase 364 - BG 117 - ASA/acetaminophen WNL Repleting Mg and K with 1mg IV Mg and 40mg PO Kdur, plan to give 40mg more in 2 hours. Giving 1L NS and giving food. ECG shows NSR with HR 92, QRS 90, QTc 479, no evidence of ischemic changes or TWI Patient re-evaluated, now has tongue fasciculations, will address withdrawal symptoms with 50mg Librium to prevent further withdrawal. Signed out to Dr. Gibbs. Plan to give 40mg more K and recheck labs in a few hours. Patient confirmed to have [facility] bed, stable to be transferred there for detox once medically cleared. Discharge - Discharge Information Problems reviewed: Yes Clinical Impression/Diagnosis: Hypokalemia, Hypomagnesemia Alcohol intoxication Qualifiers: Complication of substance-induced condition: uncomplicated Qualified Code(s): F10.920 - Alcohol use, unspecified with intoxication, uncomplicated Alcohol withdrawal Qualifiers: Complication of substance-induced condition: with perceptual disturbance Qualified Code(s): F10.232 - Alcohol dependence with withdrawal with perceptual disturbance Condition: Stable - Follow up/Referral - Patient Discharge Instructions - Post Discharge Activity
[2019-02-07] MEDS ORDERED: LORazepam 2 MG/ML SDV VIAL ONE ×2 (15:45→20:35)
--- NOTE | 2019-02-07 17:11 | PDOC ---
Attending Attestation - Resident Resident Name: Navid Covarrubias - ED Attending Attestation I have performed the following: I have examined & evaluated the patient, The case was reviewed & discussed with the resident, I agree w/resident's findings & plan, Exceptions are as noted - HPI HPI: 02/07/19 17:08 Patient is a 58-year-old male with history of depression, alcohol abuse who is referred from [facility] detox for tremulousness and agitation as well as epigastric discomfort. Patient reports that he drinks 2 pints of vodka a day and his last drink was on the morning of the day of arrival. - Physicial Exam PE: 02/07/19 17:09 Patient is awake and alert, disheveled, in mild distress, patient is tachycardic Normocephalic and atraumatic No scleral icterus PERRLA, EOMI, no nystagmus CTA RRR Abdomen soft, non-distended, minimal epigastric discomfort noted - Medical Decision Making 02/07/19 17:10 Patient is a 58-year-old male with history of EtOH abuse who presented from [facility] detox for tremulousness and agitation. Will administer Ativan. Will obtain CBC/CMP/lipase. Will control withdrawal symptoms with additional doses of IV Ativan. If patient's condition stabilizes, will transfer to [facility] for inpatient detox.
[2019-02-07 17:28] LABS: VENOUS PC02 42.1 mmHg (38-52)
[2019-02-07 17:29] LABS: VENOUS PO2 < 49 mmHg (28-48)
[2019-02-07 17:34] LABS: BASO % 0.2 % (0-2.0); EOS % 4.7 % (0-4.5); HEMATOCRIT 35.3 % (35.4-49); HEMOGLOBIN 11.2 GM/dL (11.7-16.9); LYMPH % 23.8 % (8-40); MCH 23.4 pg (25.7-33.7); MCHC 31.6 g/dl (32.0-35.9); MEAN CELL VOLUME 74.1 fl (80-96); MEAN PLT VOLUME 8.5 fl (7.5-11.1); MONO % 5.4 % (3.8-10.2); NEUT % 65.9 % (42.8-82.8); PLATELET COUNT 127 K/MM3 (134-434); RBC 4.77 M/mm3 (4.00-5.60); WHITE BLOOD COUNT 8.4 K/mm3 (4.0-10.0)
[2019-02-07 17:46] LABS: INR 1.07 (0.83-1.09); PROTHROMBIN TIME (PATIENT) 12.6 SEC (9.7-13.0)
[2019-02-07 17:49] LABS: ACTIVATED PTT 32.1 SECONDS (25.2-36.5)
[2019-02-07 18:08] LABS: ALBUMIN 3.5 g/dl (3.4-5.0); ALK PHOS 75 U/L (45-117); ANION GAP 10 MMOL/L (8-16); BILIRUBIN,TOTAL 0.6 mg/dL (0.2-1); BLOOD UREA NITROGEN 5.7 mg/dL (7-18); CALCIUM 8.6 mg/dL (8.5-10.1); CHLORIDE 107 mmol/L (98-107); CO2 25 mmol/L (21-32); CREATININE 0.7 mg/dL (0.55-1.3); GLUCOSE,RANDOM 79 mg/dL (74-106); LIPASE 367 U/L (73-393); MAGNESIUM 1.5 mg/dL (1.8-2.4); PHOSPHOROUS 1.7 mg/dL (2.5-4.9); SGOT/AST 22 U/L (15-37); SGPT/ALT 18 U/L (13-61); SODIUM 141 mmol/L (136-145); TOT PROT 6.8 g/dl (6.4-8.2)
[2019-02-07 18:10] LABS: POTASSIUM 2.9 mmol/L (3.5-5.1)
[2019-02-07] MEDS ORDERED: SODIUM CHLORIDE 0.9% 500 ML INFUS.BAG IV ONE (18:11)
[2019-02-07] MEDS ORDERED: THIAMINE HCL 200 MG/2 ML VIAL IVPB ONE (18:11)
[2019-02-07] MEDS ORDERED: MAGNESIUM SULF 50% (8.12 MEQ/2 ML-1 GM VIAL) IVPB ONE (18:12)
[2019-02-07] MEDS ORDERED: POTASSIUM CHLORIDE TABS 20 MEQ TABLET.ER (FP) PO ONE ×2 (18:18→18:33)
[2019-02-07] MEDS ORDERED: chlordiazePOXIDE HCL 25 MG CAPSULE PO ONE ×2 (18:40→20:30)
[2019-02-07] MEDS ORDERED: MAGNESIUM SULF 50% (8.12 MEQ/2 ML-1 GM VIAL) ONE (18:41)
[2019-02-07] MEDS ORDERED: hydrOXYzine HCL 100 MG/2 ML VIAL IM ONE ×2 (19:27→19:28)
[2019-02-07] MEDS ORDERED: hydrOXYzine HCL 50 MG/ML VIAL IM ONE (20:04)
--- NOTE | 2019-02-07 20:38 | PDOC ---
*Physical Exam - Vital Signs Last Vital Signs Temp Pulse Resp BP Pulse Ox 98.1 F 106 H 20 118/68 95 02/07/19 14:26 02/07/19 14:26 02/07/19 14:26 02/07/19 14:26 02/07/19 14:26 ED Treatment Course - LABORATORY CBC & Chemistry Diagram: 02/07/19 16:52 02/07/19 16:52 - ADDITIONAL ORDERS Additional order review: Laboratory Results 02/07/19 02/07/19 02/07/19 16:52 16:52 16:52 PT with INR INR PTT (Actin FS) VBG pH 7.30 L POC VBG pCO2 42.1 POC VBG pO2 < 49 H VBG HCO3 23.7 VBG O2 Sat (Robert) 63.9 L VBG Base Excess -1.0 Sodium 141 Potassium 2.9 L* Chloride 107 Carbon Dioxide 25 Anion Gap 10 BUN 5.7 L Creatinine 0.7 Est GFR (CKD-EPI)AfAm 121.41 Est GFR (CKD-EPI)NonAf 104.76 POC Glucometer Random Glucose 79 Lactic Acid 3.5 H* Calcium 8.6 Phosphorus 1.7 L Magnesium 1.5 L Total Bilirubin 0.6 AST 22 ALT 18 Alkaline Phosphatase 75 Ammonia Creatine Kinase 83 Troponin I < 0.02 Total Protein 6.8 Albumin 3.5 Lipase 367 Salicylates Acetaminophen Alcohol, Quantitative 02/07/19 02/07/19 02/07/19 16:52 16:52 16:52 PT with INR INR PTT (Actin FS) VBG pH POC VBG pCO2 POC VBG pO2 VBG HCO3 VBG O2 Sat (Robert) VBG Base Excess Sodium Potassium Chloride Carbon Dioxide Anion Gap BUN Creatinine Est GFR (CKD-EPI)AfAm Est GFR (CKD-EPI)NonAf POC Glucometer Random Glucose Lactic Acid Calcium Phosphorus Magnesium Total Bilirubin AST ALT Alkaline Phosphatase Ammonia 19.40 Creatine Kinase Troponin I Total Protein Albumin Lipase Salicylates < 1.7 L Acetaminophen <2.0 Alcohol, Quantitative 248.6 H 02/07/19 02/07/19 16:52 16:45 PT with INR 12.60 INR 1.07 PTT (Actin FS) 32.1 VBG pH POC VBG pCO2 POC VBG pO2 VBG HCO3 VBG O2 Sat (Robert) VBG Base Excess Sodium Potassium Chloride Carbon Dioxide Anion Gap BUN Creatinine Est GFR (CKD-EPI)AfAm Est GFR (CKD-EPI)NonAf POC Glucometer 117 Random Glucose Lactic Acid Calcium Phosphorus Magnesium Total Bilirubin AST ALT Alkaline Phosphatase Ammonia Creatine Kinase Troponin I Total Protein Albumin Lipase Salicylates Acetaminophen Alcohol, Quantitative 02/07/19 02/07/19 16:52 16:45 RBC 4.77 MCV 74.1 L MCHC 31.6 L RDW 17.0 H MPV 8.5 Neutrophils % 65.9 D Lymphocytes % 23.8 D Monocytes % 5.4 Eosinophils % 4.7 H D Basophils % 0.2 POC Glucometer 117 - Medications Given in the ED: ED Medications Discontinued Medications Generic Name Dose Route Start Last Admin Trade Name Freq PRN Reason Stop Dose Admin Hydroxyzine HCl 100 mg 02/07/19 19:27 02/07/19 19:54 Vistaril Injection - IM 02/07/19 19:28 Not Given ONCE ONE Hydroxyzine HCl 50 mg 02/07/19 19:28 02/07/19 20:13 Vistaril Injection - IM 02/07/19 19:29 50 mg ONCE ONE Administration Lorazepam 2 mg 02/07/19 15:44 02/07/19 16:05 Ativan Injection - IVPUSH 02/07/19 15:45 2 mg ONCE ONE Administration Lorazepam 2 mg 02/07/19 16:08 02/07/19 17:08 Ativan Injection - IVPUSH 02/07/19 16:09 2 mg ONCE ONE Administration Magnesium Sulfate 1 gm 02/07/19 18:12 02/07/19 18:40 Magnesium Sulfate IVPB 02/07/19 18:13 1 gm ONCE ONE Administration Potassium Chloride 40 meq 02/07/19 18:18 02/07/19 18:39 K-Dur - PO 02/07/19 18:19 40 meq ONCE ONE Administration Sodium Chloride 1,000 ml 02/07/19 18:11 02/07/19 18:40 Normal Saline - IV 02/07/19 18:12 1,000 ml ONCE ONE Administration Medical Decision Making - Medical Decision Making 02/07/19 20:36 pt signed out by the prior attending pending labs and re-eval pt with low potassium, low mag, low phos pt now with etoh withdrawal iv meds running to replace mag and K will give another dose of ativan and start po librium for etoh withdrawal pt will need admission 02/07/19 21:00 repeat chem pending pt given [facility]iss resident discussed the case with Dr. Quinones who accepts pt to service Discharge - Discharge Information Problems reviewed: Yes Clinical Impression/Diagnosis: Hypokalemia, Hypomagnesemia Alcohol intoxication Qualifiers: Complication of substance-induced condition: uncomplicated Qualified Code(s): F10.920 - Alcohol use, unspecified with intoxication, uncomplicated Alcohol withdrawal Qualifiers: Complication of substance-induced condition: with perceptual disturbance Qualified Code(s): F10.232 - Alcohol dependence with withdrawal with perceptual disturbance Condition: Stable - Admission Yes - Follow up/Referral - Patient Discharge Instructions Patient Printed Discharge Instructions: DI for Alcohol Abuse - Post Discharge Activity
[2019-02-07] MEDS ORDERED: diazePAM 5 MG TABLET PO ONE ×2 (20:49→23:04)
[2019-02-07] MEDS ORDERED: diazePAM 5 MG TABLET ONE ×2 (20:49→23:09)
--- NOTE | 2019-02-07 20:50 | PDOC ---
*Physical Exam - Vital Signs Last Vital Signs Temp Pulse Resp BP Pulse Ox 98.1 F 106 H 20 118/68 95 02/07/19 14:26 02/07/19 14:26 02/07/19 14:26 02/07/19 14:26 02/07/19 14:26 - Physical Exam General Appearance: Yes: Disheveled, Mild Distress, Alcohol on Breath, Intoxicated HEENT: positive: Excessive drooling. negative: Scleral Icterus (R), Scleral Icterus (L) Neck: positive: Supple Respiratory/Chest: positive: Lungs Clear, Normal Breath Sounds Cardiovascular: positive: Regular Rhythm, S1, S2, Tachycardia Vascular Pulses: Dorsalis-Pedis (R): 2+, Doralis-Pedis (L): 2+ Gastrointestinal/Abdominal: positive: Soft. negative: Tender Rectal Exam: positive: deferred Lymphatic: negative: Adenopathy Musculoskeletal: positive: Normal Inspection. negative: CVA Tenderness Extremity: positive: Normal Capillary Refill, Normal Inspection, Normal Range of Motion Integumentary: positive: Normal Color, Dry, Warm Neurologic: positive: Fully Oriented, Alert, Normal Mood/Affect, Normal Response , Respond to painful stimul ED Treatment Course - LABORATORY CBC & Chemistry Diagram: 02/07/19 16:52 02/07/19 20:48 - ADDITIONAL ORDERS Additional order review: Laboratory Results 02/07/19 02/07/19 02/07/19 16:52 16:52 16:52 PT with INR INR PTT (Actin FS) VBG pH 7.30 L POC VBG pCO2 42.1 POC VBG pO2 < 49 H VBG HCO3 23.7 VBG O2 Sat (Robert) 63.9 L VBG Base Excess -1.0 Sodium 141 Potassium 2.9 L* Chloride 107 Carbon Dioxide 25 Anion Gap 10 BUN 5.7 L Creatinine 0.7 Est GFR (CKD-EPI)AfAm 121.41 Est GFR (CKD-EPI)NonAf 104.76 POC Glucometer Random Glucose 79 Lactic Acid 3.5 H* Calcium 8.6 Phosphorus 1.7 L Magnesium 1.5 L Total Bilirubin 0.6 AST 22 ALT 18 Alkaline Phosphatase 75 Ammonia Creatine Kinase 83 Troponin I < 0.02 Total Protein 6.8 Albumin 3.5 Lipase 367 Salicylates Acetaminophen Alcohol, Quantitative 02/07/19 02/07/19 02/07/19 16:52 16:52 16:52 PT with INR INR PTT (Actin FS) VBG pH POC VBG pCO2 POC VBG pO2 VBG HCO3 VBG O2 Sat (Robert) VBG Base Excess Sodium Potassium Chloride Carbon Dioxide Anion Gap BUN Creatinine Est GFR (CKD-EPI)AfAm Est GFR (CKD-EPI)NonAf POC Glucometer Random Glucose Lactic Acid Calcium Phosphorus Magnesium Total Bilirubin AST ALT Alkaline Phosphatase Ammonia 19.40 Creatine Kinase Troponin I Total Protein Albumin Lipase Salicylates < 1.7 L Acetaminophen <2.0 Alcohol, Quantitative 248.6 H 02/07/19 02/07/19 16:52 16:45 PT with INR 12.60 INR 1.07 PTT (Actin FS) 32.1 VBG pH POC VBG pCO2 POC VBG pO2 VBG HCO3 VBG O2 Sat (Robert) VBG Base Excess Sodium Potassium Chloride Carbon Dioxide Anion Gap BUN Creatinine Est GFR (CKD-EPI)AfAm Est GFR (CKD-EPI)NonAf POC Glucometer 117 Random Glucose Lactic Acid Calcium Phosphorus Magnesium Total Bilirubin AST ALT Alkaline Phosphatase Ammonia Creatine Kinase Troponin I Total Protein Albumin Lipase Salicylates Acetaminophen Alcohol, Quantitative 02/07/19 02/07/19 16:52 16:45 RBC 4.77 MCV 74.1 L MCHC 31.6 L RDW 17.0 H MPV 8.5 Neutrophils % 65.9 D Lymphocytes % 23.8 D Monocytes % 5.4 Eosinophils % 4.7 H D Basophils % 0.2 POC Glucometer 117 - Medications Given in the ED: ED Medications Discontinued Medications Generic Name Dose Route Start Last Admin Trade Name Freq PRN Reason Stop Dose Admin Hydroxyzine HCl 100 mg 02/07/19 19:27 02/07/19 19:54 Vistaril Injection - IM 02/07/19 19:28 Not Given ONCE ONE Hydroxyzine HCl 50 mg 02/07/19 19:28 02/07/19 20:13 Vistaril Injection - IM 02/07/19 19:29 50 mg ONCE ONE Administration Lorazepam 2 mg 02/07/19 15:44 02/07/19 16:05 Ativan Injection - IVPUSH 02/07/19 15:45 2 mg ONCE ONE Administration Lorazepam 2 mg 02/07/19 16:08 02/07/19 17:08 Ativan Injection - IVPUSH 02/07/19 16:09 2 mg ONCE ONE Administration Lorazepam 1 mg 02/07/19 20:35 02/07/19 20:43 Ativan Injection - IVPUSH 02/07/19 20:36 1 mg ONCE ONE Administration Magnesium Sulfate 1 gm 02/07/19 18:12 02/07/19 18:40 Magnesium Sulfate IVPB 02/07/19 18:13 1 gm ONCE ONE Administration Potassium Chloride 40 meq 02/07/19 18:18 02/07/19 18:39 K-Dur - PO 02/07/19 18:19 40 meq ONCE ONE Administration Sodium Chloride 1,000 ml 02/07/19 18:11 02/07/19 18:40 Normal Saline - IV 02/07/19 18:12 1,000 ml ONCE ONE Administration Medical Decision Making - Medical Decision Making Patient Signed out to me pending electrolyte repletions andfinal ED care and disposition. When I evaluated him in the ER he was fasciculating and withdrawing. I ordered 1 mg of ativan IV and 5 mg of diazepam PO. - Will repeat labs and admit to telemetry for alcohol withdrawal. Dispo: Telemetry - Spoke with Dr. Quinones who accepts patient for admission Discharge - Discharge Information Problems reviewed: Yes Clinical Impression/Diagnosis: Hypokalemia, Hypomagnesemia Alcohol intoxication Qualifiers: Complication of substance-induced condition: uncomplicated Qualified Code(s): F10.920 - Alcohol use, unspecified with intoxication, uncomplicated Alcohol withdrawal Qualifiers: Complication of substance-induced condition: with perceptual disturbance Qualified Code(s): F10.232 - Alcohol dependence with withdrawal with perceptual disturbance Condition: Stable - Admission Yes - Follow up/Referral - Patient Discharge Instructions - Post Discharge Activity
[2019-02-07] MEDS ORDERED: THIAMINE HCL 200 MG/2 ML VIAL ONE (20:51)
[2019-02-07] MEDS ORDERED: KCL 10 MEQ IVPB 10 MEQ/100 ML INFUS.BAG IVPB ONE ×2 (20:51→23:09)
--- NOTE | 2019-02-07 21:01 | HP ---
Admitting History and Physical - Primary Care Physician PCP: Kate Quinones - Admission History of Present Illness: 58-year-old male with history of depression, alcohol abuse who is referred from [facility] for tremulousness and agitation as well as epigastric discomfort. Patient reports that he drinks 2 pints of vodka a day and his last drink was on the morning of the day of arrival. - Smoking History Smoking history: Current every day smoker Have you smoked in the past 12 months: Yes Aproximately how many cigarettes per day: 10 - Alcohol/Substance Use Hx Alcohol Use: Yes Home Medications - Allergies Allergies/Adverse Reactions: Allergies Allergy/AdvReac Type Severity Reaction Status Date / Time diphenhydramine Allergy Severe Itching Verified 02/07/19 14:24 [From Benadryl] Fish Containing Products Allergy Verified 02/08/19 10:55 fish derived Allergy Verified 02/08/19 10:56 haloperidol [From Haldol] AdvReac Severe Rash Verified 02/07/19 14:24 - Home Medications Home Medications: Ambulatory Orders Sertraline HCl [Zoloft -] 50 mg PO DAILY #30 tablet 10/08/16 Albuterol Sulfate Inhaler - [Ventolin HFA Inhaler -] 2 inh PO Q4H PRN 08/14/18 traZODone HCL [Trazodone HCl] 50 mg PO HS 08/14/18 Ranitidine [Zantac -] 150 mg PO BID #60 tablet 08/18/18 Gabapentin 600 mg PO TID 10/19/18 Albuterol Sulfate Inhaler - [Ventolin HFA Inhaler -] 2 puff IH Q4H PRN #1 inhaler 10/22/18 Levothyroxine Sodium [Levo-T] 50 mcg PO DAILY #30 tablet 10/22/18 Physical Examination Vital Signs: Vital Signs Temperature 98.1 F 02/07/19 14:26 Pulse Rate 106 H 02/07/19 14:26 Respiratory Rate 20 02/07/19 14:26 Blood Pressure 118/68 02/07/19 14:26 O2 Sat by Pulse Oximetry (%) 95 02/07/19 14:26 Constitutional: Yes: Anxious HENT: Yes: Atraumatic Neck: Yes: Supple Cardiovascular: Yes: Regular Rate and Rhythm Extremities: Yes: WNL Labs: CBC, BMP 02/07/19 16:52 Problem List - Problems (1) Alcohol intoxication Assessment/Plan: librium protocol detox consult Code(s): F10.929 - ALCOHOL USE, UNSPECIFIED WITH INTOXICATION, UNSPECIFIED Qualifiers: Complication of substance-induced condition: uncomplicated Qualified Code(s ): F10.920 - Alcohol use, unspecified with intoxication, uncomplicated (2) Alcohol withdrawal Assessment/Plan: prn ativan Code(s): F10.239 - ALCOHOL DEPENDENCE WITH WITHDRAWAL, UNSPECIFIED Qualifiers: Complication of substance-induced condition: with perceptual disturbance Qualified Code(s): F10.232 - Alcohol dependence with withdrawal with perceptual disturbance (3) Hypokalemia Assessment/Plan: replace Code(s): E87.6 - HYPOKALEMIA (4) Hypomagnesemia Assessment/Plan: replace Code(s): E83.42 - HYPOMAGNESEMIA Assessment/Plan Laboratory Tests 02/07/19 02/07/19 02/07/19 16:45 16:52 16:52 WBC RBC Hgb Hct MCV MCH MCHC RDW Plt Count MPV Absolute Neuts (auto) Neutrophils % Lymphocytes % Monocytes % Eosinophils % Basophils % Nucleated RBC % PT with INR 12.60 INR 1.07 PTT (Actin FS) 32.1 VBG pH POC VBG pCO2 POC VBG pO2 VBG HCO3 VBG O2 Sat (Robert) VBG Base Excess Sodium Potassium Chloride Carbon Dioxide Anion Gap BUN Creatinine Est GFR (CKD-EPI)AfAm Est GFR (CKD-EPI)NonAf POC Glucometer 117 Random Glucose Lactic Acid Calcium Phosphorus Magnesium Total Bilirubin AST ALT Alkaline Phosphatase Ammonia Creatine Kinase Troponin I Total Protein Albumin Lipase Salicylates < 1.7 L Acetaminophen <2.0 Alcohol, Quantitative 02/07/19 02/07/19 02/07/19 16:52 16:52 16:52 WBC 8.4 RBC 4.77 Hgb 11.2 L Hct 35.3 L D MCV 74.1 L MCH 23.4 L MCHC 31.6 L RDW 17.0 H Plt Count 127 L D MPV 8.5 Absolute Neuts (auto) 5.6 Neutrophils % 65.9 D Lymphocytes % 23.8 D Monocytes % 5.4 Eosinophils % 4.7 H D Basophils % 0.2 Nucleated RBC % 0 PT with INR INR PTT (Actin FS) VBG pH POC VBG pCO2 POC VBG pO2 VBG HCO3 VBG O2 Sat (Robert) VBG Base Excess Sodium Potassium Chloride Carbon Dioxide Anion Gap BUN Creatinine Est GFR (CKD-EPI)AfAm Est GFR (CKD-EPI)NonAf POC Glucometer Random Glucose Lactic Acid Calcium Phosphorus Magnesium Total Bilirubin AST ALT Alkaline Phosphatase Ammonia 19.40 Creatine Kinase Troponin I Total Protein Albumin Lipase Salicylates Acetaminophen Alcohol, Quantitative 248.6 H 02/07/19 02/07/19 02/07/19 16:52 16:52 16:52 WBC RBC Hgb Hct MCV MCH MCHC RDW Plt Count MPV Absolute Neuts (auto) Neutrophils % Lymphocytes % Monocytes % Eosinophils % Basophils % Nucleated RBC % PT with INR INR PTT (Actin FS) VBG pH 7.30 L POC VBG pCO2 42.1 POC VBG pO2 < 49 H VBG HCO3 23.7 VBG O2 Sat (Robert) 63.9 L VBG Base Excess -1.0 Sodium 141 Potassium 2.9 L* Chloride 107 Carbon Dioxide 25 Anion Gap 10 BUN 5.7 L Creatinine 0.7 Est GFR (CKD-EPI)AfAm 121.41 Est GFR (CKD-EPI)NonAf 104.76 POC Glucometer Random Glucose 79 Lactic Acid 3.5 H* Calcium 8.6 Phosphorus 1.7 L Magnesium 1.5 L Total Bilirubin 0.6 AST 22 ALT 18 Alkaline Phosphatase 75 Ammonia Creatine Kinase 83 Troponin I < 0.02 Total Protein 6.8 Albumin 3.5 Lipase 367 Salicylates Acetaminophen Alcohol, Quantitative Active Medications Generic Name Dose Route Start Last Admin Trade Name Freq PRN Reason Stop Dose Admin Potassium Chloride 10 meq in 100 mls @ 100 mls/hr 02/07/19 19:30 Potassium Chloride 10 Meq Premix Ivpb - IVPB 02/07/19 21:29 Q60M KEISHA Active Medications Generic Name Dose Route Start Last Admin Trade Name Freq PRN Reason Stop Dose Admin Chlordiazepoxide HCl 50 mg 02/08/19 06:00 02/08/19 14:02 Librium - PO 02/09/19 00:01 50 mg Q6HPO KEISHA Administration Chlordiazepoxide HCl 25 mg 02/09/19 06:00 Librium - PO 02/10/19 00:01 Q6HPO KEISHA Chlordiazepoxide HCl 15 mg 02/10/19 06:00 Librium - PO 02/11/19 00:01 Q6HPO KEISHA Chlordiazepoxide HCl 10 mg 02/11/19 06:00 Librium - PO 02/12/19 00:01 Q6HPO KEISHA Chlordiazepoxide HCl 25 mg 02/08/19 02:15 Librium - PO 02/11/19 02:14 Q4H PRN WITHDRAWAL(CONT SUBST) Gabapentin 600 mg 02/07/19 22:00 02/08/19 14:02 Neurontin - PO 600 mg TID KEISHA Administration Heparin Sodium (Porcine) 5,000 unit 02/07/19 22:00 02/08/19 10:35 Heparin - SQ 5,000 unit BID KEISHA Administration Levothyroxine Sodium 50 mcg 02/08/19 07:00 02/08/19 06:31 Synthroid - PO 50 mcg AM KEISHA Administration Nicotine 14 mg 02/08/19 10:00 02/08/19 10:35 Nicoderm Patch - TD 14 mg DAILY KEISHA Administration Pantoprazole Sodium 40 mg 02/08/19 10:00 02/08/19 10:35 Protonix Iv IVPUSH 40 mg DAILY KEISHA Administration Sertraline HCl 50 mg 02/08/19 10:00 02/08/19 10:35 Zoloft - PO 50 mg DAILY KEISHA Administration
[2019-02-07 21:17] LABS: BLOOD UREA NITROGEN 4.8 mg/dL (7-18); CREATININE 0.7 mg/dL (0.55-1.3); MAGNESIUM 1.9 mg/dL (1.8-2.4); POTASSIUM 3.5 mmol/L (3.5-5.1)
[2019-02-07] MEDS: KCL 10 MEQ IVPB 10 MEQ/100 ML INFUS.BAG IVPB SCH ×2 (21:22→23:18)
[2019-02-07] MEDS ORDERED: HEPARIN NA (PORCINE) 5,000 UNITS/ML 1ML VIAL ONE (22:21)
[2019-02-07] MEDS: HEPARIN NA (PORCINE) 5,000 UNITS/ML 1ML VIAL SQ SCH (23:18)
[2019-02-07] MEDS: GABAPENTIN 300 MG CAPSULE (FP) PO SCH (23:18)
[2019-02-07 23:33] LABS: PH,URINE 6.5 (5.0-8.0); URINE APPEARANCE CLEAR; URINE BILIRUBIN NEGATIVE (NEGATIVE); URINE COLOR YELLOW; URINE GLUCOSE (UA) NEGATIVE (NEGATIVE); URINE KETONE NEGATIVE (NEGATIVE); URINE LEUK ESTERASE NEGATIVE (NEGATIVE); URINE NITRITE NEGATIVE (NEGATIVE); URINE PROTEIN NEGATIVE (NEGATIVE)
[2019-02-07 23:49] LABS: METHADONE, UR NEGATIVE ng/ml (CUTOFF=300); OPIATES, URI NEGATIVE ng/ml (CUTOFF=300); PHENCYCLIDINE,URINE NEGATIVE ng/ml (CUTOFF=25); URINE AMPHETAMINES NEGATIVE ng/ml (CUTOFF=500); URINE BARBITURATES NEGATIVE ng/ml (CUTOFF=200)
[2019-02-07 23:53] LABS: COCAINE, UR POSITIVE ng/ml (CUTOFF=300); URINE BENZODIAZEPINES POSITIVE ng/ml (CUTOFF=200)
[2019-02-08 02:02] VITALS: BMI 27.3
[2019-02-08] MEDS ORDERED: MAG HYDROX/AL HYDROX/SIMETH 30 ML UNIT-DOSE CUP PO ONE (02:13)
[2019-02-08] MEDS ORDERED: LORazepam 1 MG TABLET PO ONE (02:23)
[2019-02-08] MEDS: GABAPENTIN 300 MG CAPSULE (FP) PO SCH ×3 (06:00→21:21)
[2019-02-08] MEDS: LEVOTHYROXINE NA 50 MCG TABLET (FP) PO SCH (06:31)
[2019-02-08] MEDS: chlordiazePOXIDE HCL 25 MG CAPSULE PO SCH ×3 (06:32→18:31)
[2019-02-08 07:26] LABS: BASO % 1.2 % (0-2.0); EOS % 5.3 % (0-4.5); HEMATOCRIT 33.3 % (35.4-49); HEMOGLOBIN 10.7 GM/dL (11.7-16.9); LYMPH % 22.5 % (8-40); MCH 23.7 pg (25.7-33.7); MCHC 32.3 g/dl (32.0-35.9); MEAN CELL VOLUME 73.4 fl (80-96); MEAN PLT VOLUME 8.7 fl (7.5-11.1); MONO % 5.3 % (3.8-10.2); NEUT % 65.7 % (42.8-82.8); PLATELET COUNT 120 K/MM3 (134-434); RBC 4.54 M/mm3 (4.00-5.60); RDW 17.2 % (11.9-15.9); WHITE BLOOD COUNT 6.3 K/mm3 (4.0-10.0)
[2019-02-08 07:43] LABS: ALBUMIN 3.2 g/dl (3.4-5.0); BILIRUBIN,TOTAL 1.4 mg/dL (0.2-1); BLOOD UREA NITROGEN 8.3 mg/dL (7-18); CALCIUM 8.1 mg/dL (8.5-10.1); CREATININE 0.8 mg/dL (0.55-1.3); TOT PROT 6.3 g/dl (6.4-8.2)
[2019-02-08] MEDS: PANTOPRAZOLE SODIUM 40 MG VIAL IVPUSH SCH (10:35)
[2019-02-08] MEDS: SERTRALINE HCL 50 MG TABLET (FP) PO SCH (10:35)
[2019-02-08] MEDS: HEPARIN NA (PORCINE) 5,000 UNITS/ML 1ML VIAL SQ SCH ×2 (10:35→21:20)
[2019-02-08] MEDS: NICOTINE 14 MG/24 HOURS TOPICAL PATCH TD SCH (10:35)
--- NOTE | 2019-02-08 10:42 | EKG ---
Test Reason : Blood Pressure : / mmHG Vent. Rate : 092 BPM Atrial Rate : 092 BPM P-R Int : 182 ms QRS Dur : 090 ms QT Int : 388 ms P-R-T Axes : 071 073 072 degrees QTc Int : 479 ms NORMAL SINUS RHYTHM NORMAL ECG WHEN COMPARED WITH ECG OF 20-OCT-2018 10:59, NO SIGNIFICANT CHANGE WAS FOUND Confirmed by KELSY SIERRA MD ([id number]) on 02/08/2019 10:42:18 AM Referred By: Confirmed By:KELSY SIERRA MD
--- NOTE | 2019-02-08 15:24 | EKG ---
Test Reason : Blood Pressure : / mmHG Vent. Rate : 072 BPM Atrial Rate : 072 BPM P-R Int : 180 ms QRS Dur : 086 ms QT Int : 382 ms P-R-T Axes : 069 065 063 degrees QTc Int : 418 ms NORMAL SINUS RHYTHM NORMAL ECG WHEN COMPARED WITH ECG OF 07-FEB-2019 18:20, QT HAS SHORTENED Confirmed by KELSY SIERRA MD ([id number]) on 02/08/2019 3:23:36 PM Referred By: JORGE SANFORD Confirmed By:KELYS SIERRA MD
--- NOTE | 2019-02-08 15:42 | CONSULT ---
Consult Detox [facility] Reason for Current Admission/Consult: for alcohol detox Referred by:: Kate Quinones - History History of Present Illness: this 58 years old male with alcohol dependence and cocaine abused,asthma, hypothyroidism, multiple admissions for detox in the past denied seizure denied syncope last detox admission at [facility] 10/19/18 to 10/23/18 keep relapsing [facility] for bipolar disorder regularly admited at [facility] for abdominal pain,alcoholic intoxication,hypokalemia on on librium regimen - History Source History Provided By: Patient Limitations to Obtaining History: No Limitations - Alcohol/Substance Use Hx Alcohol Use: Yes - Past Medical History Pulmonary: Yes: Asthma Psych: Yes: Bipolar CIWA Score - CIWA Score Nausea/Vomitin-Mild Nausea/No Vomiting Muscle Tremors: 2 Anxiety: 2 Agitation: 2 Paroxysmal Sweats: No Perspiration Orientation: 0-Oriented Tacttile Disturbances: 1-Very Mild Itch/Numbness Auditory Disturbances: 0-None Visual Disturbances: 0-None Headache: 1-Very Mild CIWA-Ar Total Score: 9 Assessment Plan - Diagnosis (1) Alcohol dependence with uncomplicated withdrawal Status: Acute (2) Alcohol intoxication Status: Acute Qualifiers: Complication of substance-induced condition: uncomplicated Qualified Code(s ): F10.920 - Alcohol use, unspecified with intoxication, uncomplicated (3) Hypokalemia Status: Acute (4) Bipolar disorder Status: Chronic Comment: As per self-report. - Plan Plan: this 58 years old male with alcohol dependence and cocaine abused,admitted at [facility] with abdominal pain,hypokalemia, alcohol intoxication, denied seizure denied syncope multiple admissions in detox,last [facility] 10/19/18 to 10/23/18 father is alcoholic now on librium regimen suggestion continue alcohol detox,taper off librium regimen discuss with patient when stable, will benefit for inpatient rehab for further level of care patient refuse,stated he will continue out patient treatment three times a week and will see his own psychiatrist for follow up as out patient treatment thanks for your consltation, - Medication Detox Regimen/Protocol: Librium
--- NOTE | 2019-02-08 17:07 | PN ---
Progress Note, Physician History of Present Illness: doing well - Current Medication List Current Medications: Active Medications Chlordiazepoxide HCl (Librium -) 50 mg PO Q6HPO [facility] Stop: 02/09/19 00:01 Last Admin: 02/08/19 14:02 Dose: 50 mg Chlordiazepoxide HCl (Librium -) 25 mg PO Q6HPO [facility] Stop: 02/10/19 00:01 Chlordiazepoxide HCl (Librium -) 15 mg PO Q6HPO [facility] Stop: 02/11/19 00:01 Chlordiazepoxide HCl (Librium -) 10 mg PO Q6HPO [facility] Stop: 02/12/19 00:01 Chlordiazepoxide HCl (Librium -) 25 mg PO Q4H PRN PRN Reason: WITHDRAWAL(CONT SUBST) Stop: 02/11/19 02:14 Gabapentin (Neurontin -) 600 mg PO TID [facility] Last Admin: 02/08/19 14:02 Dose: 600 mg Heparin Sodium (Porcine) (Heparin -) 5,000 unit SQ BID [facility] Last Admin: 02/08/19 10:35 Dose: 5,000 unit Levothyroxine Sodium (Synthroid -) 50 mcg PO AM [facility] Last Admin: 02/08/19 06:31 Dose: 50 mcg Nicotine (Nicoderm Patch -) 14 mg TD DAILY [facility] Last Admin: 02/08/19 10:35 Dose: 14 mg Pantoprazole Sodium (Protonix Iv) 40 mg IVPUSH DAILY [facility] Last Admin: 02/08/19 10:35 Dose: 40 mg Sertraline HCl (Zoloft -) 50 mg PO DAILY [facility] Last Admin: 02/08/19 10:35 Dose: 50 mg - Objective Vital Signs: Vital Signs Temperature 98.1 F 02/08/19 14:00 Pulse Rate 87 02/08/19 14:00 Respiratory Rate 20 02/08/19 14:00 Blood Pressure 154/80 02/08/19 14:00 O2 Sat by Pulse Oximetry (%) 96 02/08/19 01:54 Constitutional: Yes: Anxious HENT: Yes: Atraumatic Neck: Yes: Supple Cardiovascular: Yes: Regular Rate and Rhythm Respiratory: Yes: CTA Bilaterally Gastrointestinal: Yes: Normal Bowel Sounds Extremities: Yes: WNL Neurological: Yes: Alert, Oriented Labs: CBC, BMP 02/08/19 06:30 02/08/19 06:30 INR, PTT INR 1.07 (0.83-1.09) 02/07/19 16:52 Problem List - Problems (1) Alcohol intoxication Assessment/Plan: librium protocol detox consult Code(s): F10.929 - ALCOHOL USE, UNSPECIFIED WITH INTOXICATION, UNSPECIFIED Qualifiers: Complication of substance-induced condition: uncomplicated Qualified Code(s ): F10.920 - Alcohol use, unspecified with intoxication, uncomplicated (2) Alcohol withdrawal Assessment/Plan: prn ativan Code(s): F10.239 - ALCOHOL DEPENDENCE WITH WITHDRAWAL, UNSPECIFIED Qualifiers: Complication of substance-induced condition: with perceptual disturbance Qualified Code(s): F10.232 - Alcohol dependence with withdrawal with perceptual disturbance (3) Hypokalemia Assessment/Plan: replace Code(s): E87.6 - HYPOKALEMIA (4) Hypomagnesemia Code(s): E83.42 - HYPOMAGNESEMIA
[2019-02-08] MEDS: chlordiazePOXIDE HCL 25 MG CAPSULE PO PRN (21:21)
[2019-02-09] MEDS: LEVOTHYROXINE NA 50 MCG TABLET (FP) PO SCH (06:11)
[2019-02-09] MEDS: chlordiazePOXIDE HCL 25 MG CAPSULE PO SCH ×4 (06:11→18:04)
[2019-02-09] MEDS: SERTRALINE HCL 50 MG TABLET (FP) PO SCH (09:39)
[2019-02-09] MEDS: NICOTINE 14 MG/24 HOURS TOPICAL PATCH TD SCH (09:39)
[2019-02-09] MEDS: PANTOPRAZOLE SODIUM 40 MG VIAL IVPUSH SCH (09:39)
[2019-02-09] MEDS: HEPARIN NA (PORCINE) 5,000 UNITS/ML 1ML VIAL SQ SCH ×2 (09:39→21:25)
[2019-02-09] MEDS: chlordiazePOXIDE HCL 25 MG CAPSULE PO PRN ×2 (09:40→21:25)
[2019-02-09] MEDS: GABAPENTIN 300 MG CAPSULE (FP) PO SCH ×2 (14:03→21:25)
--- NOTE | 2019-02-09 17:27 | PN ---
Progress Note, Physician History of Present Illness: doing well - Current Medication List Current Medications: Active Medications Albuterol Sulfate (Ventolin Hfa Inhaler -) 2 puff IH Q4H PRN PRN Reason: SHORTNESS OF BREATH Chlordiazepoxide HCl (Librium -) 25 mg PO Q6HPO [facility] Stop: 02/10/19 00:01 Last Admin: 02/09/19 12:37 Dose: 25 mg Chlordiazepoxide HCl (Librium -) 15 mg PO Q6HPO [facility] Stop: 02/11/19 00:01 Chlordiazepoxide HCl (Librium -) 10 mg PO Q6HPO [facility] Stop: 02/12/19 00:01 Chlordiazepoxide HCl (Librium -) 25 mg PO Q4H PRN PRN Reason: WITHDRAWAL(CONT SUBST) Stop: 02/11/19 02:14 Last Admin: 02/09/19 09:40 Dose: 25 mg Gabapentin (Neurontin -) 600 mg PO TID [facility] Last Admin: 02/08/19 21:21 Dose: 600 mg Heparin Sodium (Porcine) (Heparin -) 5,000 unit SQ BID [facility] Last Admin: 02/09/19 09:39 Dose: 5,000 unit Levothyroxine Sodium (Synthroid -) 50 mcg PO AM [facility] Last Admin: 02/09/19 06:11 Dose: 50 mcg Nicotine (Nicoderm Patch -) 14 mg TD DAILY [facility] Last Admin: 02/09/19 09:39 Dose: 14 mg Pantoprazole Sodium (Protonix Iv) 40 mg IVPUSH DAILY [facility] Last Admin: 02/09/19 09:39 Dose: 40 mg Sertraline HCl (Zoloft -) 50 mg PO DAILY [facility] Last Admin: 02/09/19 09:39 Dose: 50 mg - Objective Vital Signs: Vital Signs Temperature 98.0 F 02/09/19 15:08 Pulse Rate 94 H 02/09/19 15:08 Respiratory Rate 18 02/09/19 15:08 Blood Pressure 120/74 02/09/19 15:08 O2 Sat by Pulse Oximetry (%) 95 02/09/19 09:00 Constitutional: Yes: No Distress HENT: Yes: Atraumatic Neck: Yes: Supple Cardiovascular: Yes: Regular Rate and Rhythm Respiratory: Yes: CTA Bilaterally Gastrointestinal: Yes: Normal Bowel Sounds Extremities: Yes: WNL Edema: No Peripheral Pulses WNL: Yes Labs: CBC, BMP 02/08/19 06:30 02/08/19 06:30 INR, PTT INR 1.07 (0.83-1.09) 02/07/19 16:52 Problem List - Problems (1) Alcohol intoxication Assessment/Plan: librium protocol doing well Code(s): F10.929 - ALCOHOL USE, UNSPECIFIED WITH INTOXICATION, UNSPECIFIED Qualifiers: Complication of substance-induced condition: uncomplicated Qualified Code(s ): F10.920 - Alcohol use, unspecified with intoxication, uncomplicated (2) Alcohol withdrawal Assessment/Plan: prn ativan doing well Code(s): F10.239 - ALCOHOL DEPENDENCE WITH WITHDRAWAL, UNSPECIFIED Qualifiers: Complication of substance-induced condition: with perceptual disturbance Qualified Code(s): F10.232 - Alcohol dependence with withdrawal with perceptual disturbance (3) Hypokalemia Assessment/Plan: replace Code(s): E87.6 - HYPOKALEMIA (4) Hypomagnesemia Code(s): E83.42 - HYPOMAGNESEMIA
[2019-02-10] MEDS: chlordiazePOXIDE HCL 25 MG CAPSULE PO SCH (00:46)
[2019-02-10] MEDS: chlordiazePOXIDE 5 MG CAPSULE PO SCH ×3 (06:38→17:14)
[2019-02-10] MEDS: LEVOTHYROXINE NA 50 MCG TABLET (FP) PO SCH (06:38)
[2019-02-10] MEDS: GABAPENTIN 300 MG CAPSULE (FP) PO SCH ×3 (06:39→22:00)
[2019-02-10] MEDS: PANTOPRAZOLE SODIUM 40 MG VIAL IVPUSH SCH (10:12)
[2019-02-10] MEDS: NICOTINE 14 MG/24 HOURS TOPICAL PATCH TD SCH (10:12)
[2019-02-10] MEDS: SERTRALINE HCL 50 MG TABLET (FP) PO SCH (10:12)
[2019-02-10] MEDS: HEPARIN NA (PORCINE) 5,000 UNITS/ML 1ML VIAL SQ SCH ×2 (10:12→22:00)
--- NOTE | 2019-02-10 15:40 | PN ---
Progress Note, Physician - Current Medication List Current Medications: Active Medications Albuterol Sulfate (Ventolin Hfa Inhaler -) 2 puff IH Q4H PRN PRN Reason: SHORTNESS OF BREATH Chlordiazepoxide HCl (Librium -) 15 mg PO Q6HPO [facility] Stop: 02/11/19 00:01 Last Admin: 02/10/19 12:20 Dose: 15 mg Chlordiazepoxide HCl (Librium -) 10 mg PO Q6HPO KEISHA Stop: 02/12/19 00:01 Chlordiazepoxide HCl (Librium -) 25 mg PO Q4H PRN PRN Reason: WITHDRAWAL(CONT SUBST) Stop: 02/11/19 02:14 Last Admin: 02/09/19 21:25 Dose: 25 mg Gabapentin (Neurontin -) 600 mg PO TID [facility] Last Admin: 02/10/19 14:12 Dose: 600 mg Heparin Sodium (Porcine) (Heparin -) 5,000 unit SQ BID [facility] Last Admin: 02/10/19 10:12 Dose: 5,000 unit Levothyroxine Sodium (Synthroid -) 50 mcg PO AM [facility] Last Admin: 02/10/19 06:38 Dose: 50 mcg Nicotine (Nicoderm Patch -) 14 mg TD DAILY [facility] Last Admin: 02/10/19 10:12 Dose: 14 mg Pantoprazole Sodium (Protonix Iv) 40 mg IVPUSH DAILY [facility] Last Admin: 02/10/19 10:12 Dose: 40 mg Sertraline HCl (Zoloft -) 50 mg PO DAILY [facility] Last Admin: 02/10/19 10:12 Dose: 50 mg - Objective Vital Signs: Vital Signs Temperature 98.1 F 02/10/19 14:00 Pulse Rate 89 02/10/19 14:00 Respiratory Rate 20 02/10/19 10:00 Blood Pressure 106/62 02/10/19 14:00 O2 Sat by Pulse Oximetry (%) 95 02/10/19 09:00 Constitutional: Yes: No Distress HENT: Yes: Atraumatic Neck: Yes: Supple Cardiovascular: Yes: Regular Rate and Rhythm Respiratory: Yes: CTA Bilaterally Gastrointestinal: Yes: Normal Bowel Sounds Extremities: Yes: WNL Edema: No Neurological: Yes: Alert, Oriented Labs: CBC, BMP 02/08/19 06:30 02/08/19 06:30 INR, PTT INR 1.07 (0.83-1.09) 02/07/19 16:52 Problem List - Problems (1) Alcohol intoxication Assessment/Plan: librium protocol doing well Code(s): F10.929 - ALCOHOL USE, UNSPECIFIED WITH INTOXICATION, UNSPECIFIED Qualifiers: Complication of substance-induced condition: uncomplicated Qualified Code(s ): F10.920 - Alcohol use, unspecified with intoxication, uncomplicated (2) Alcohol withdrawal Assessment/Plan: prn ativan doing well Code(s): F10.239 - ALCOHOL DEPENDENCE WITH WITHDRAWAL, UNSPECIFIED Qualifiers: Complication of substance-induced condition: with perceptual disturbance Qualified Code(s): F10.232 - Alcohol dependence with withdrawal with perceptual disturbance (3) Hypokalemia Assessment/Plan: replace Code(s): E87.6 - HYPOKALEMIA (4) Hypomagnesemia Code(s): E83.42 - HYPOMAGNESEMIA
[2019-02-10] MEDS: ALBUTEROL SO4 8 GM HFA INHALER IH PRN (21:59)
[2019-02-10] MEDS ORDERED: CHLORDIAZEPOXIDE 20 MG, CHLORDIAZEPOXIDE 5 MG PO PRN (21:59)
[2019-02-10] MEDS ORDERED: chlordiazePOXIDE 5 MG CAPSULE ONE (22:03)
[2019-02-10] MEDS ORDERED: chlordiazePOXIDE HCL 10 MG CAPSULE ONE (22:04)
[2019-02-11] MEDS: chlordiazePOXIDE 5 MG CAPSULE PO SCH (01:05)
[2019-02-11] MEDS: chlordiazePOXIDE HCL 10 MG CAPSULE PO SCH ×4 (06:42→23:42)
[2019-02-11] MEDS: GABAPENTIN 300 MG CAPSULE (FP) PO SCH ×4 (06:43→22:09)
[2019-02-11] MEDS: LEVOTHYROXINE NA 50 MCG TABLET (FP) PO SCH (06:43)
[2019-02-11] MEDS: HEPARIN NA (PORCINE) 5,000 UNITS/ML 1ML VIAL SQ SCH ×2 (10:45→22:09)
[2019-02-11] MEDS: NICOTINE 14 MG/24 HOURS TOPICAL PATCH TD SCH (10:45)
[2019-02-11] MEDS: SERTRALINE HCL 50 MG TABLET (FP) PO SCH (10:46)
[2019-02-11] MEDS: PANTOPRAZOLE SODIUM 40 MG VIAL IVPUSH SCH (10:46)
--- NOTE | 2019-02-11 16:49 | PN ---
Progress Note, Physician - Current Medication List Current Medications: Active Medications Albuterol Sulfate (Ventolin Hfa Inhaler -) 2 puff IH Q4H PRN PRN Reason: SHORTNESS OF BREATH Last Admin: 02/10/19 21:59 Dose: 2 inh Chlordiazepoxide HCl (Librium -) 10 mg PO Q6HPO [facility] Stop: 02/12/19 00:01 Last Admin: 02/11/19 12:46 Dose: 10 mg Chlordiazepoxide HCl 20 mg/ (Chlordiazepoxide HCl 5 mg) 25 mg PO Q4H PRN PRN Reason: WITHDRAWAL (CONT SUBST) Last Admin: 02/10/19 22:06 Dose: 25 mg Gabapentin (Neurontin -) 600 mg PO TID [facility] Last Admin: 02/11/19 15:59 Dose: 600 mg Heparin Sodium (Porcine) (Heparin -) 5,000 unit SQ BID [facility] Last Admin: 02/11/19 10:45 Dose: 5,000 unit Levothyroxine Sodium (Synthroid -) 50 mcg PO AM [facility] Last Admin: 02/11/19 06:43 Dose: 50 mcg Nicotine (Nicoderm Patch -) 14 mg TD DAILY [facility] Last Admin: 02/11/19 10:45 Dose: 14 mg Sertraline HCl (Zoloft -) 50 mg PO DAILY [facility] Last Admin: 02/11/19 10:46 Dose: 50 mg - Objective Vital Signs: Vital Signs Temperature 98.7 F 02/11/19 15:21 Pulse Rate 81 02/11/19 15:21 Respiratory Rate 18 02/11/19 15:21 Blood Pressure 107/66 02/11/19 15:21 O2 Sat by Pulse Oximetry (%) 97 02/11/19 09:00 Constitutional: Yes: No Distress HENT: Yes: Atraumatic Neck: Yes: Supple Cardiovascular: Yes: Regular Rate and Rhythm Respiratory: Yes: CTA Bilaterally Gastrointestinal: Yes: Normal Bowel Sounds Extremities: Yes: WNL Neurological: Yes: Alert, Oriented Labs: CBC, BMP 02/08/19 06:30 02/08/19 06:30 INR, PTT INR 1.07 (0.83-1.09) 02/07/19 16:52 Problem List - Problems (1) Alcohol intoxication Assessment/Plan: librium protocol doing well dc in am Code(s): F10.929 - ALCOHOL USE, UNSPECIFIED WITH INTOXICATION, UNSPECIFIED Qualifiers: Complication of substance-induced condition: uncomplicated Qualified Code(s ): F10.920 - Alcohol use, unspecified with intoxication, uncomplicated (2) Alcohol withdrawal Assessment/Plan: prn ativan doing well Code(s): F10.239 - ALCOHOL DEPENDENCE WITH WITHDRAWAL, UNSPECIFIED Qualifiers: Complication of substance-induced condition: with perceptual disturbance Qualified Code(s): F10.232 - Alcohol dependence with withdrawal with perceptual disturbance (3) Hypokalemia Assessment/Plan: replace Code(s): E87.6 - HYPOKALEMIA (4) Hypomagnesemia Assessment/Plan: replace Code(s): E83.42 - HYPOMAGNESEMIA
[2019-02-11] MEDS: ALBUTEROL SO4 8 GM HFA INHALER IH PRN (18:38)
[2019-02-11] MEDS ORDERED: ACETAMINOPHEN 325 MG TABLET (FP) PO ONE (23:52)
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
[2019-02-12] MEDS: GABAPENTIN 300 MG CAPSULE (FP) PO SCH (06:12)
[2019-02-12] MEDS: LEVOTHYROXINE NA 50 MCG TABLET (FP) PO SCH (06:12)
[2019-02-12 06:51] VITALS: TEMP 97.3
[2019-02-12] MEDS: SERTRALINE HCL 50 MG TABLET (FP) PO SCH (09:50)
[2019-02-12] MEDS: HEPARIN NA (PORCINE) 5,000 UNITS/ML 1ML VIAL SQ SCH (09:50)
[2019-02-12] MEDS: NICOTINE 14 MG/24 HOURS TOPICAL PATCH TD SCH (09:50)
[2019-02-12 11:33] VITALS: BP 110/54; PULSE 67
--- NOTE | 2019-02-12 17:30 | DS ---
Physical Examination Vital Signs: Vital Signs Temperature 97.3 F L 02/12/19 09:00 Pulse Rate 67 02/12/19 09:00 Respiratory Rate 18 02/12/19 11:30 Blood Pressure 110/54 L 02/12/19 09:00 O2 Sat by Pulse Oximetry (%) 95 02/12/19 11:30 Constitutional: Yes: No Distress HENT: Yes: Atraumatic Neck: Yes: Supple Cardiovascular: Yes: Regular Rate and Rhythm Respiratory: Yes: CTA Bilaterally Gastrointestinal: Yes: Normal Bowel Sounds Extremities: Yes: WNL Neurological: Yes: Alert, Oriented Labs: CBC, BMP 02/08/19 06:30 02/08/19 06:30 Discharge Summary Problems reviewed: Yes Reason For Visit: ALCOHOL WITHDRAWAL SYNDROME, ALCOHOL INTOXICATION Condition: Stable - Instructions Disposition: HOME - Home Medications Comprehensive Discharge Medication List: Ambulatory Orders Sertraline HCl [Zoloft -] 50 mg PO DAILY #30 tablet 10/08/16 Albuterol Sulfate Inhaler - [Ventolin HFA Inhaler -] 2 inh PO Q4H PRN 08/14/18 traZODone HCL [Trazodone HCl] 50 mg PO HS 08/14/18 Ranitidine [Zantac -] 150 mg PO BID #60 tablet 08/18/18 Gabapentin 600 mg PO TID 10/19/18 Albuterol Sulfate Inhaler - [Ventolin HFA Inhaler -] 2 puff IH Q4H PRN #1 inhaler 10/22/18 Levothyroxine Sodium [Levo-T] 50 mcg PO DAILY #30 tablet 10/22/18 dc home pt wants to continue out patient detox
== END 2019-02-12 11:56 | disposition home or self-care (01) | DRG 774 ==
LOC: JER 14:02 → JERBED 20:59 → J4W 02-08 01:41 → J8W 02-11 15:04
PROVIDERS: ADMIT Internal Medicine; ATTEND Internal Medicine
PROC: HZ2ZZZZ Detoxification Services for Substance Abuse Treatment (ICD-10-PCS; principal; 2019-02-07)
DX: F10.231 Alcohol dependence with withdrawal delirium (principal); E83.42 Hypomagnesemia; E87.6 Hypokalemia; F17.210 Nicotine dependence, cigarettes, uncomplicated; F31.9 Bipolar disorder, unspecified; F14.10 Cocaine abuse, uncomplicated; E03.9 Hypothyroidism, unspecified; R00.0 Tachycardia, unspecified; R10.9 Unspecified abdominal pain
CPT/HCPCS: 36415; 71045-TC-FY; 80048; 80053; 80307; 81003; 82140; 82550; 82803; 82962; 83605; 83690; 83735; 84100; 84484; 85025; 85610; 85730; 93005; 93010; 99284-25; J1644

== ENCOUNTER 2020-11-18 20:04 | Inpatient (IN) | payer OTHER ==
[2020-11-18] MEDS ORDERED: MAGNESIUM HYDROX 2400MG/30ML ORAL SUSPENSION 30 ML CUP PO PRN (21:51)
[2020-11-18] MEDS ORDERED: NICOTINE POLACRILEX 2 MG GUM BUC PRN (21:51)
[2020-11-18] MEDS ORDERED: MAGNESIUM CITRATE 300 ML BOTTLE PO PRN (21:51)
[2020-11-18] MEDS ORDERED: MAG HYDROX/AL HYDROX/SIMETH 30 ML UNIT-DOSE CUP PO PRN (21:51)
[2020-11-18] MEDS ORDERED: ACETAMINOPHEN 325 MG TABLET (FP) PO PRN (21:51)
[2020-11-18] MEDS ORDERED: MENTHOL/PHENOL 1 EACH UD MM PRN (21:51)
[2020-11-18] MEDS ORDERED: ONDANSETRON *ODT* 4 MG TABLET SL PRN (21:51)
[2020-11-18] MEDS ORDERED: BISMUTH SUBSALICYLATE 524 MG/30 ML PO PRN (21:51)
[2020-11-18] MEDS ORDERED: NICOTINE 10 MG CARTRIDGE (INHALER) IH PRN (21:51)
[2020-11-18] MEDS ORDERED: ONDANSETRON *ODT* 4 MG TABLET ONE (22:12)
[2020-11-18] MEDS ORDERED: diazePAM 5 MG TABLET ONE (22:12)
[2020-11-18] MEDS: diazePAM 5 MG TABLET PO SCH (22:16)
[2020-11-19 00:45] VITALS: BMI 25.0
[2020-11-19] MEDS: THIAMINE HCL 100 MG TABLET (FP) PO SCH ×2 (00:54→22:16)
[2020-11-19] MEDS: MELATONIN 5 MG TABLETS PO SCH ×2 (00:54→22:16)
[2020-11-19] MEDS ORDERED: guaiFENesin 200 MG/10 ML 10 ML UNIT-DOSE CUPS PO PRN (02:20)
[2020-11-19] MEDS ORDERED: DICYCLOMINE HCL 10 MG CAPSULE PO PRN (02:30)
[2020-11-19] MEDS ORDERED: ONDANSETRON *ODT* 4 MG TABLET SL ONE (02:31)
[2020-11-19] MEDS: diazePAM 5 MG TABLET PO PRN (02:41)
[2020-11-19] MEDS: diazePAM 5 MG TABLET PO SCH ×4 (05:54→22:16)
[2020-11-19] MEDS: PRENATAL VITAMINS W/ FOLIC ACID TABLET (FP) PO SCH (10:41)
[2020-11-19] MEDS: LEVOTHYROXINE NA 25 MCG TABLET (FP) PO SCH (12:44)
[2020-11-19] MEDS: NICOTINE 21 MG/24 HOURS TOPICAL PATCH TD SCH (12:44)
[2020-11-19 12:45] LABS: HEMATOCRIT 39.9 % (35.4-49); MCH 22.9 pg (25.7-33.7); MCHC 32.5 g/dl (32.0-35.9); MEAN CELL VOLUME 70.4 fl (80-96); MEAN PLT VOLUME 8.6 fl (7.5-11.1); PLATELET COUNT 154 10^3/uL (134-434); RBC 5.67 M/mm3 (4.00-5.60); RDW 16.2 % (11.9-15.9); WHITE BLOOD COUNT 10.5 K/mm3 (4.0-10.0)
[2020-11-19 12:52] LABS: CALCIUM 8.7 mg/dL (8.5-10.1)
[2020-11-19 12:53] LABS: ALBUMIN 3.6 g/dl (3.4-5.0); BLOOD UREA NITROGEN 13.8 mg/dL (7-18)
[2020-11-19 12:56] LABS: CREATININE 0.7 mg/dL (0.55-1.3)
[2020-11-19 12:58] LABS: BILIRUBIN,TOTAL 1.3 mg/dL (0.2-1); TOT PROT 7.5 g/dl (6.4-8.2)
[2020-11-19] MEDS: ALBUTEROL SO4 HFA INHALER IH PRN (13:38)
[2020-11-19 13:43] LABS: HIV INTERPRETATION NEGATIVE (NEGATIVE)
[2020-11-19] MEDS: ACETAMINOPHEN 325 MG TABLET (FP) PO PRN (17:44)
[2020-11-19] MEDS: TAMSULOSIN HCL 0.4 MG CAP PO SCH (18:29)
[2020-11-19] MEDS: QUEtiapine FUMARATE 100 MG TABLET (FP) PO SCH (22:16)
[2020-11-20] MEDS: ACETAMINOPHEN 325 MG TABLET (FP) PO PRN ×2 (05:32→17:27)
[2020-11-20] MEDS: diazePAM 5 MG TABLET PO SCH ×3 (05:32→21:57)
[2020-11-20] MEDS: LEVOTHYROXINE NA 25 MCG TABLET (FP) PO SCH (06:21)
[2020-11-20] MEDS ORDERED: TAMSULOSIN HCL 0.4 MG CAP PO SCH (08:30)
[2020-11-20] MEDS: ALBUTEROL SO4 HFA INHALER IH PRN (08:56)
[2020-11-20] MEDS: TAMSULOSIN HCL 0.4 MG CAP PO SCH (08:57)
[2020-11-20] MEDS: PRENATAL VITAMINS W/ FOLIC ACID TABLET (FP) PO SCH (10:25)
[2020-11-20] MEDS: NICOTINE 21 MG/24 HOURS TOPICAL PATCH TD SCH (10:26)
[2020-11-20] MEDS: SERTRALINE HCL 50 MG TABLET (FP) PO SCH (10:26)
[2020-11-20] MEDS: FAMOTIDINE 20 MG TABLET PO SCH (10:27)
[2020-11-20] MEDS: diazePAM 5 MG TABLET PO PRN ×2 (10:27→17:26)
[2020-11-20] MEDS: GABAPENTIN 300 MG CAPSULE PO SCH ×2 (13:14→21:58)
[2020-11-20] MEDS: THIAMINE HCL 100 MG TABLET (FP) PO SCH (21:58)
[2020-11-20] MEDS: MELATONIN 5 MG TABLETS PO SCH (21:58)
[2020-11-20] MEDS: QUEtiapine FUMARATE 100 MG TABLET (FP) PO SCH (21:58)
[2020-11-21] MEDS: diazePAM 5 MG TABLET PO SCH ×2 (05:24→17:44)
[2020-11-21] MEDS: GABAPENTIN 300 MG CAPSULE PO SCH ×3 (05:25→22:01)
[2020-11-21] MEDS: ACETAMINOPHEN 325 MG TABLET (FP) PO PRN (05:26)
[2020-11-21] MEDS: ALBUTEROL SO4 HFA INHALER IH PRN ×3 (05:27→19:47)
[2020-11-21] MEDS: LEVOTHYROXINE NA 25 MCG TABLET (FP) PO SCH (07:05)
[2020-11-21] MEDS: diazePAM 5 MG TABLET PO PRN ×3 (09:05→21:45)
[2020-11-21] MEDS: PRENATAL VITAMINS W/ FOLIC ACID TABLET (FP) PO SCH (10:33)
[2020-11-21] MEDS: SERTRALINE HCL 50 MG TABLET (FP) PO SCH (10:34)
[2020-11-21] MEDS: TAMSULOSIN HCL 0.4 MG CAP PO SCH (10:34)
[2020-11-21] MEDS: FAMOTIDINE 20 MG TABLET PO SCH (10:34)
[2020-11-21] MEDS: NICOTINE 21 MG/24 HOURS TOPICAL PATCH TD SCH (10:35)
[2020-11-21] MEDS: QUEtiapine FUMARATE 100 MG TABLET (FP) PO SCH (21:45)
[2020-11-21] MEDS: MELATONIN 5 MG TABLETS PO SCH (22:01)
[2020-11-21] MEDS: THIAMINE HCL 100 MG TABLET (FP) PO SCH (22:01)
[2020-11-22] MEDS: GABAPENTIN 300 MG CAPSULE PO SCH (05:50)
[2020-11-22] MEDS ORDERED: diazePAM 5 MG TABLET PO ONE (06:00)
[2020-11-22] MEDS: LEVOTHYROXINE NA 25 MCG TABLET (FP) PO SCH (07:08)
[2020-11-22 09:42] VITALS: BP 133/80; PULSE 107; TEMP 96.9
[2020-11-22] MEDS: PRENATAL VITAMINS W/ FOLIC ACID TABLET (FP) PO SCH (09:51)
[2020-11-22] MEDS: FAMOTIDINE 20 MG TABLET PO SCH (09:51)
[2020-11-22] MEDS: TAMSULOSIN HCL 0.4 MG CAP PO SCH (09:51)
[2020-11-22] MEDS: NICOTINE 21 MG/24 HOURS TOPICAL PATCH TD SCH (09:51)
[2020-11-22] MEDS: SERTRALINE HCL 50 MG TABLET (FP) PO SCH (09:52)
== END 2020-11-22 10:15 | disposition home or self-care (01) | DRG 774 ==
LOC: YASAS 20:04 → Y3N 23:57
PROVIDERS: ADMIT Allergy & Immunology; ATTEND Allergy & Immunology
PROC: HZ2ZZZZ Detoxification Services for Substance Abuse Treatment (ICD-10-PCS; principal; 2020-11-18)
DX: F10.230 Alcohol dependence with withdrawal, uncomplicated (principal); F14.10 Cocaine abuse, uncomplicated; F17.210 Nicotine dependence, cigarettes, uncomplicated; F19.24 Other psychoactive substance dependence with psychoactive substance-induced mood disorder; F31.9 Bipolar disorder, unspecified; F51.05 Insomnia due to other mental disorder; D64.9 Anemia, unspecified; G62.9 Polyneuropathy, unspecified; E03.9 Hypothyroidism, unspecified; J45.20 Mild intermittent asthma, uncomplicated; K21.9 Gastro-esophageal reflux disease without esophagitis; M12.9 Arthropathy, unspecified; M54.5 Low back pain; G89.29 Other chronic pain; Z88.8 Allergy status to other drugs, medicaments and biological substances
CPT/HCPCS: 36415; 71045-TC-FY; 80053; 85027; 86780; 87389; C9803; Q0162; U0003; U0005

== ENCOUNTER 2020-12-21 12:20 | Inpatient (IN) | payer OTHER ==
[2020-12-21 13:25] VITALS: BMI 25.2
[2020-12-21] MEDS ORDERED: ACETAMINOPHEN 325 MG TABLET (FP) PO PRN (13:29)
[2020-12-21] MEDS ORDERED: MENTHOL/PHENOL 1 EACH UD MM PRN (13:29)
[2020-12-21] MEDS ORDERED: MAG HYDROX/AL HYDROX/SIMETH 30 ML UNIT-DOSE CUP PO PRN (13:29)
[2020-12-21] MEDS ORDERED: MAGNESIUM HYDROX 2400MG/30ML ORAL SUSPENSION 30 ML CUP PO PRN (13:29)
[2020-12-21] MEDS ORDERED: ONDANSETRON *ODT* 4 MG TABLET SL PRN (13:29)
[2020-12-21] MEDS ORDERED: MAGNESIUM CITRATE 300 ML BOTTLE PO PRN (13:29)
[2020-12-21] MEDS ORDERED: NICOTINE 10 MG CARTRIDGE (INHALER) IH PRN (13:29)
[2020-12-21] MEDS ORDERED: diazePAM 5 MG TABLET ONE (14:13)
[2020-12-21] MEDS: diazePAM 5 MG TABLET PO PRN ×2 (14:17→19:37)
[2020-12-21] MEDS: diazePAM 5 MG TABLET PO SCH ×2 (17:45→22:14)
[2020-12-21] MEDS: BISMUTH SUBSALICYLATE 524 MG/30 ML PO PRN (19:39)
[2020-12-21] MEDS ORDERED: MELATONIN 5 MG TABLETS PO SCH (22:00)
[2020-12-21] MEDS: METHOCARBAMOL 500 MG TABLET PO PRN (22:13)
[2020-12-21] MEDS: THIAMINE HCL 100 MG TABLET (FP) PO SCH (22:13)
[2020-12-21] MEDS: GABAPENTIN 300 MG CAPSULE PO SCH (22:14)
[2020-12-21] MEDS: ALBUTEROL SO4 HFA INHALER IH PRN (23:00)
[2020-12-22] MEDS: diazePAM 5 MG TABLET PO PRN ×3 (01:14→12:53)
[2020-12-22] MEDS: GABAPENTIN 300 MG CAPSULE PO SCH ×3 (05:51→22:21)
[2020-12-22] MEDS: diazePAM 5 MG TABLET PO SCH ×4 (06:46→22:21)
[2020-12-22] MEDS ORDERED: LEVOTHYROXINE NA 50 MCG TABLET (FP) PO SCH (07:00)
[2020-12-22] MEDS: TAMSULOSIN HCL 0.4 MG CAP PO SCH (10:33)
[2020-12-22] MEDS: ACETAMINOPHEN 325 MG TABLET (FP) PO PRN ×2 (10:35→22:23)
[2020-12-22] MEDS: SERTRALINE HCL 50 MG TABLET (FP) PO SCH (10:36)
[2020-12-22] MEDS: PRENATAL VITAMINS W/ FOLIC ACID TABLET (FP) PO SCH (10:36)
[2020-12-22] MEDS: ALBUTEROL SO4 HFA INHALER IH PRN (12:48)
[2020-12-22] MEDS: BISMUTH SUBSALICYLATE 524 MG/30 ML PO PRN (15:03)
[2020-12-22] MEDS: QUEtiapine FUMARATE 100 MG TABLET (FP) PO SCH (22:21)
[2020-12-22] MEDS: THIAMINE HCL 100 MG TABLET (FP) PO SCH (22:21)
[2020-12-23] MEDS: diazePAM 5 MG TABLET PO SCH ×3 (05:41→22:07)
[2020-12-23] MEDS: GABAPENTIN 300 MG CAPSULE PO SCH ×3 (05:41→22:07)
[2020-12-23] MEDS: LEVOTHYROXINE NA 25 MCG TABLET (FP) PO SCH (06:59)
[2020-12-23] MEDS: TAMSULOSIN HCL 0.4 MG CAP PO SCH (10:14)
[2020-12-23] MEDS: SERTRALINE HCL 50 MG TABLET (FP) PO SCH (10:14)
[2020-12-23] MEDS: PRENATAL VITAMINS W/ FOLIC ACID TABLET (FP) PO SCH (10:14)
[2020-12-23] MEDS: IBUPROFEN 400 MG TABLET (FP) PO PRN ×2 (10:15→17:45)
[2020-12-23] MEDS: diazePAM 5 MG TABLET PO PRN ×2 (10:17→17:46)
[2020-12-23 12:48] LABS: BLOOD UREA NITROGEN 11.6 mg/dL (7-18); CALCIUM 8.7 mg/dL (8.5-10.1)
[2020-12-23 12:50] LABS: CREATININE 0.8 mg/dL (0.55-1.3); HEMATOCRIT 37.5 % (35.4-49); HEMOGLOBIN 12.1 GM/dL (11.7-16.9); MCH 23.2 pg (25.7-33.7); MCHC 32.2 g/dl (32.0-35.9); MEAN CELL VOLUME 71.9 fl (80-96); MEAN PLT VOLUME 8.3 fl (7.5-11.1); PLATELET COUNT 112 10^3/uL (134-434); RBC 5.21 M/mm3 (4.00-5.60); RDW 17.9 % (11.9-15.9); WHITE BLOOD COUNT 5.9 K/mm3 (4.0-10.0)
[2020-12-23 12:52] LABS: BILIRUBIN,TOTAL 0.5 mg/dL (0.2-1)
[2020-12-23] MEDS: NICOTINE 21 MG/24 HOURS TOPICAL PATCH TD SCH (14:44)
[2020-12-23] MEDS: BISMUTH SUBSALICYLATE 524 MG/30 ML PO PRN (17:48)
[2020-12-23] MEDS: THIAMINE HCL 100 MG TABLET (FP) PO SCH (22:07)
[2020-12-23] MEDS: QUEtiapine FUMARATE 100 MG TABLET (FP) PO SCH (22:07)
[2020-12-23] MEDS: ALBUTEROL SO4 HFA INHALER IH PRN (22:08)
[2020-12-23 23:17] LABS: HIV INTERPRETATION NEGATIVE (NEGATIVE)
[2020-12-24] MEDS: METHOCARBAMOL 500 MG TABLET PO PRN ×3 (01:47→22:11)
[2020-12-24] MEDS: diazePAM 5 MG TABLET PO PRN ×2 (01:48→09:47)
[2020-12-24] MEDS: GABAPENTIN 300 MG CAPSULE PO SCH ×3 (05:22→22:10)
[2020-12-24] MEDS: diazePAM 5 MG TABLET PO SCH ×2 (05:22→17:12)
[2020-12-24] MEDS: IBUPROFEN 400 MG TABLET (FP) PO PRN (05:23)
[2020-12-24] MEDS: LEVOTHYROXINE NA 25 MCG TABLET (FP) PO SCH (06:04)
[2020-12-24] MEDS: TIOTROPIUM BROMIDE 2.5 MCG (SPIRIVA) RESPIMAT INHALER IH SCH ×3 (07:43→09:42)
[2020-12-24] MEDS: SERTRALINE HCL 50 MG TABLET (FP) PO SCH (09:42)
[2020-12-24] MEDS: TAMSULOSIN HCL 0.4 MG CAP PO SCH (09:42)
[2020-12-24] MEDS: PRENATAL VITAMINS W/ FOLIC ACID TABLET (FP) PO SCH (09:42)
[2020-12-24] MEDS: NICOTINE 21 MG/24 HOURS TOPICAL PATCH TD SCH (10:17)
[2020-12-24] MEDS ORDERED: ACETAMINOPHEN 325 MG TABLET (FP) PO PRN ×2 (11:14→11:42)
[2020-12-24] MEDS ORDERED: IBUPROFEN 400 MG TABLET (FP) PO PRN (11:14)
[2020-12-24] MEDS ORDERED: LOPERAMIDE HCL 2 MG CAPSULE PO PRN (11:18)
[2020-12-24] MEDS: ALBUTEROL SO4 HFA INHALER IH PRN (17:11)
[2020-12-24] MEDS: QUEtiapine FUMARATE 100 MG TABLET (FP) PO SCH (22:10)
[2020-12-24] MEDS: THIAMINE HCL 100 MG TABLET (FP) PO SCH (22:11)
[2020-12-25] MEDS ORDERED: diazePAM 5 MG TABLET PO ONE (06:00)
[2020-12-25] MEDS: GABAPENTIN 300 MG CAPSULE PO SCH (06:09)
[2020-12-25] MEDS: LEVOTHYROXINE NA 25 MCG TABLET (FP) PO SCH (06:09)
[2020-12-25 07:17] VITALS: BP 118/63; PULSE 64; TEMP 98.3
[2020-12-25] MEDS: SERTRALINE HCL 50 MG TABLET (FP) PO SCH (09:19)
[2020-12-25] MEDS: TAMSULOSIN HCL 0.4 MG CAP PO SCH (09:19)
[2020-12-25] MEDS: PRENATAL VITAMINS W/ FOLIC ACID TABLET (FP) PO SCH (09:20)
[2020-12-25] MEDS: NICOTINE 21 MG/24 HOURS TOPICAL PATCH TD SCH (09:21)
[2020-12-25] MEDS: TIOTROPIUM BROMIDE 2.5 MCG (SPIRIVA) RESPIMAT INHALER IH SCH (09:21)
== END 2020-12-25 09:37 | disposition home or self-care (01) | DRG 774 ==
LOC: YASAS 12:20 → Y3N 14:28
PROVIDERS: ADMIT Allergy & Immunology; ATTEND Allergy & Immunology
PROC: HZ2ZZZZ Detoxification Services for Substance Abuse Treatment (ICD-10-PCS; principal; 2020-12-21)
DX: F10.230 Alcohol dependence with withdrawal, uncomplicated (principal); F14.20 Cocaine dependence, uncomplicated; F17.210 Nicotine dependence, cigarettes, uncomplicated; F43.10 Post-traumatic stress disorder, unspecified; F19.24 Other psychoactive substance dependence with psychoactive substance-induced mood disorder; F19.282 Other psychoactive substance dependence with psychoactive substance-induced sleep disorder; J45.909 Unspecified asthma, uncomplicated; K21.9 Gastro-esophageal reflux disease without esophagitis; E03.9 Hypothyroidism, unspecified; M54.50 Low back pain, unspecified; G89.29 Other chronic pain; Z88.8 Allergy status to other drugs, medicaments and biological substances; Z91.013 Allergy to seafood; Z56.0 Unemployment, unspecified
CPT/HCPCS: 36415; 80053; 85027; 86780; 87389; C9803; U0003; U0005

== ENCOUNTER 2022-02-10 13:21 | Inpatient (IN) | payer OTHER ==
[2022-02-10 15:51] VITALS: BMI 25.6
[2022-02-11] MEDS ORDERED: ACETAMINOPHEN 325 MG TABLET (FP) PO PRN ×2 (02:58)
[2022-02-11] MEDS ORDERED: NALOXONE HCL (KLOXXADO) 8 MG SPRAY NS PRN (02:58)
[2022-02-11] MEDS ORDERED: DICYCLOMINE HCL 10 MG CAPSULE PO PRN (02:58)
[2022-02-11] MEDS ORDERED: BENZOCAINE/MENTHOL (CHLORASEPTIC ) LOZENGE MM PRN (02:58)
[2022-02-11] MEDS ORDERED: ONDANSETRON *ODT* 4 MG TABLET SL PRN (02:58)
[2022-02-11] MEDS ORDERED: MAGNESIUM HYDROX 2400MG/30ML ORAL SUSPENSION 30 ML CUP PO PRN (02:58)
[2022-02-11] MEDS ORDERED: POLYETHYLENE GLYCOL (HEALTHYLAX) 3350 17 GM PACKET PO PRN (02:58)
[2022-02-11] MEDS ORDERED: chlordiazePOXIDE HCL 25 MG CAPSULE ONE ×2 (07:13→09:43)
[2022-02-11] MEDS: chlordiazePOXIDE HCL 25 MG CAPSULE PO SCH ×4 (07:18→22:19)
[2022-02-11] MEDS: chlordiazePOXIDE HCL 25 MG CAPSULE PO PRN ×2 (09:41→14:53)
[2022-02-11] MEDS ORDERED: NICOTINE 14 MG/24 HOURS TOPICAL PATCH TD SCH (10:00)
[2022-02-11] MEDS ORDERED: PRENATAL VITAMINS W/ FOLIC ACID TABLET (FP) PO SCH (10:00)
[2022-02-11] MEDS ORDERED: chlordiazePOXIDE HCL 25 MG CAPSULE PO ONE (10:02)
[2022-02-11] MEDS: METHOCARBAMOL 500 MG TABLET PO PRN ×2 (13:21→22:20)
[2022-02-11] MEDS: LACTULOSE 20 GM/30 ML UDC (FOR ORAL USE ONLY) PO SCH ×4 (13:21→22:19)
[2022-02-11] MEDS: NICOTINE 10 MG CARTRIDGE (INHALER) IH PRN (13:23)
[2022-02-11] MEDS: LOPERAMIDE HCL 2 MG CAPSULE PO PRN (14:54)
[2022-02-11] MEDS: BISMUTH SUBSALICYLATE 524 MG/30 ML PO PRN (18:09)
[2022-02-11] MEDS: THIAMINE HCL 100 MG TABLET (FP) PO SCH (22:19)
[2022-02-11] MEDS: MELATONIN 5 MG TABLETS PO SCH (22:19)
[2022-02-11] MEDS: IBUPROFEN 400 MG TABLET (FP) PO PRN (22:21)
[2022-02-12] MEDS: IBUPROFEN 600 MG TABLET (FP) PO PRN ×2 (04:01→17:39)
[2022-02-12] MEDS: chlordiazePOXIDE HCL 25 MG CAPSULE PO SCH ×4 (04:01→22:19)
[2022-02-12] MEDS: LACTULOSE 20 GM/30 ML UDC (FOR ORAL USE ONLY) PO SCH ×3 (06:10→22:18)
[2022-02-12] MEDS: BISMUTH SUBSALICYLATE 524 MG/30 ML PO PRN ×2 (06:39→18:09)
[2022-02-12] MEDS: PRENATAL VITAMINS W/ FOLIC ACID TABLET (FP) PO SCH (10:36)
[2022-02-12] MEDS: NICOTINE 10 MG CARTRIDGE (INHALER) IH PRN (10:36)
[2022-02-12] MEDS: NICOTINE 14 MG/24 HOURS TOPICAL PATCH TD SCH (10:36)
[2022-02-12 10:43] LABS: HEMATOCRIT 38.1 % (35.4-49); HEMOGLOBIN 12.1 GM/dL (11.7-16.9); MCH 23.2 pg (25.7-33.7); MCHC 31.7 g/dl (32.0-35.9); MEAN CELL VOLUME 72.9 fl (80-96); MEAN PLT VOLUME 8.4 fl (7.5-11.1); RBC 5.23 M/mm3 (4.00-5.60); RDW 17.2 % (11.9-15.9); WHITE BLOOD COUNT 5.5 K/mm3 (4.0-10.0)
[2022-02-12 10:49] LABS: PLATELET COUNT 61 10^3/uL (134-434)
[2022-02-12 11:58] LABS: ALBUMIN 3.2 g/dl (3.4-5.0); BILIRUBIN,TOTAL 0.7 mg/dL (0.2-1); BLOOD UREA NITROGEN 9.2 mg/dL (7-18); CALCIUM 9.4 mg/dL (8.5-10.1); CREATININE 0.8 mg/dL (0.55-1.3); TOT PROT 6.9 g/dl (6.4-8.2)
[2022-02-12] MEDS: chlordiazePOXIDE HCL 25 MG CAPSULE PO PRN (13:17)
[2022-02-12] MEDS: ALBUTEROL SO4 HFA INHALER IH PRN (13:30)
[2022-02-12] MEDS: BUDESONIDE/FORMETEROL FUMARATE 160/4.5 mcg INHALER IH SCH ×2 (13:53→22:20)
[2022-02-12] MEDS ORDERED: ALBUTEROL SO4 0.083% IH SOL 2.5 MG/3 ML VIAL.NEB. NEB ONE (14:01)
[2022-02-12] MEDS ORDERED: ALBUTEROL SO4 0.083% IH SOL 2.5 MG/3 ML VIAL.NEB. NEB PRN (14:28)
[2022-02-12] MEDS ORDERED: guaiFENesin 200 MG/10 ML 10 ML UNIT-DOSE CUPS PO ONE (14:29)
[2022-02-12] MEDS: THIAMINE HCL 100 MG TABLET (FP) PO SCH (22:18)
[2022-02-12] MEDS: QUEtiapine FUMARATE 100 MG TABLET (FP) PO SCH (22:18)
[2022-02-12] MEDS: MELATONIN 5 MG TABLETS PO SCH (22:18)
[2022-02-12] MEDS: METHOCARBAMOL 500 MG TABLET PO PRN (22:22)
[2022-02-12] MEDS: LOPERAMIDE HCL 2 MG CAPSULE PO PRN (23:04)
[2022-02-13] MEDS ORDERED: chlordiazePOXIDE HCL 10 MG CAPSULE PO PRN
[2022-02-13] MEDS: LEVOTHYROXINE NA 25 MCG TABLET (FP) PO SCH (06:25)
[2022-02-13] MEDS: LACTULOSE 20 GM/30 ML UDC (FOR ORAL USE ONLY) PO SCH ×3 (06:26→22:10)
[2022-02-13] MEDS: chlordiazePOXIDE HCL 10 MG CAPSULE PO SCH ×4 (06:27→22:11)
[2022-02-13] MEDS: BUDESONIDE/FORMETEROL FUMARATE 160/4.5 mcg INHALER IH SCH ×2 (10:49→22:10)
[2022-02-13] MEDS: TAMSULOSIN HCL 0.4 MG CAP PO SCH (10:50)
[2022-02-13] MEDS: IBUPROFEN 600 MG TABLET (FP) PO PRN ×2 (10:50→17:45)
[2022-02-13] MEDS: PRENATAL VITAMINS W/ FOLIC ACID TABLET (FP) PO SCH (10:50)
[2022-02-13] MEDS: SERTRALINE HCL 50 MG TABLET (FP) PO SCH (10:50)
[2022-02-13] MEDS: NICOTINE 14 MG/24 HOURS TOPICAL PATCH TD SCH (11:07)
[2022-02-13] MEDS: METHOCARBAMOL 500 MG TABLET PO PRN (17:45)
[2022-02-13] MEDS: THIAMINE HCL 100 MG TABLET (FP) PO SCH (22:10)
[2022-02-13] MEDS: QUEtiapine FUMARATE 100 MG TABLET (FP) PO SCH (22:10)
[2022-02-13] MEDS: MELATONIN 5 MG TABLETS PO SCH (22:10)
[2022-02-13] MEDS: IBUPROFEN 400 MG TABLET (FP) PO PRN (22:12)
[2022-02-14] MEDS: chlordiazePOXIDE HCL 10 MG CAPSULE PO SCH ×2 (06:01→17:57)
[2022-02-14] MEDS: LACTULOSE 20 GM/30 ML UDC (FOR ORAL USE ONLY) PO SCH ×2 (06:01→13:38)
[2022-02-14] MEDS: LEVOTHYROXINE NA 25 MCG TABLET (FP) PO SCH (06:50)
[2022-02-14] MEDS: PRENATAL VITAMINS W/ FOLIC ACID TABLET (FP) PO SCH (10:22)
[2022-02-14] MEDS: METHOCARBAMOL 500 MG TABLET PO PRN ×2 (10:22→18:00)
[2022-02-14] MEDS: BUDESONIDE/FORMETEROL FUMARATE 160/4.5 mcg INHALER IH SCH ×2 (10:22→22:08)
[2022-02-14] MEDS: TAMSULOSIN HCL 0.4 MG CAP PO SCH (10:23)
[2022-02-14] MEDS: SERTRALINE HCL 50 MG TABLET (FP) PO SCH (10:23)
[2022-02-14] MEDS: NICOTINE 14 MG/24 HOURS TOPICAL PATCH TD SCH (10:26)
[2022-02-14] MEDS: MAG HYDROX/AL HYDROX/SIMETH 30 ML UNIT-DOSE CUP PO PRN (11:20)
[2022-02-14] MEDS: IBUPROFEN 400 MG TABLET (FP) PO PRN ×2 (12:27→18:00)
[2022-02-14] MEDS: ALBUTEROL SO4 HFA INHALER IH PRN (17:59)
[2022-02-14] MEDS: THIAMINE HCL 100 MG TABLET (FP) PO SCH (22:07)
[2022-02-14] MEDS: QUEtiapine FUMARATE 100 MG TABLET (FP) PO SCH (22:07)
[2022-02-14 22:28] VITALS: RESP 18; TEMP 97.5
[2022-02-14] MEDS: MELATONIN 5 MG TABLETS PO SCH (22:47)
[2022-02-15] MEDS: LACTULOSE 20 GM/30 ML UDC (FOR ORAL USE ONLY) PO SCH ×2 (00:01→05:56)
[2022-02-15] MEDS: METHOCARBAMOL 500 MG TABLET PO PRN ×2 (00:04→05:57)
[2022-02-15] MEDS: IBUPROFEN 400 MG TABLET (FP) PO PRN ×2 (00:05→08:39)
[2022-02-15] MEDS ORDERED: chlordiazePOXIDE HCL 10 MG CAPSULE PO ONE (05:00)
[2022-02-15] MEDS: LEVOTHYROXINE NA 25 MCG TABLET (FP) PO SCH (06:00)
[2022-02-15 06:39] VITALS: BP 127/81; PULSE 72
[2022-02-15] MEDS: MAG HYDROX/AL HYDROX/SIMETH 30 ML UNIT-DOSE CUP PO PRN (07:10)
== END 2022-02-15 08:55 | disposition home or self-care (01) | DRG 775 ==
LOC: YASAS 13:21 → Y3N 02-11 11:55
PROVIDERS: ADMIT Allergy & Immunology; ATTEND Surgery
PROC: HZ2ZZZZ Detoxification Services for Substance Abuse Treatment (ICD-10-PCS; principal; 2022-02-11)
DX: F10.230 Alcohol dependence with withdrawal, uncomplicated (principal); F17.210 Nicotine dependence, cigarettes, uncomplicated; F31.9 Bipolar disorder, unspecified; F10.24 Alcohol dependence with alcohol-induced mood disorder; F10.282 Alcohol dependence with alcohol-induced sleep disorder; F41.9 Anxiety disorder, unspecified; J45.40 Moderate persistent asthma, uncomplicated; K21.9 Gastro-esophageal reflux disease without esophagitis; E03.9 Hypothyroidism, unspecified; M54.50 Low back pain, unspecified; G89.29 Other chronic pain; N40.0 Benign prostatic hyperplasia without lower urinary tract symptoms; Z99.89 Dependence on other enabling machines and devices; Z88.8 Allergy status to other drugs, medicaments and biological substances; Z91.013 Allergy to seafood
CPT/HCPCS: 36415; 71046-TC-FY; 74177-TC; 76705-TC; 80053; 80307; 81003; 82140; 83690; 85027; 85610; 85730; 86780; 93005; 93010; 94640; C9803-CS; U0003; U0005

== ENCOUNTER 2022-11-15 12:10 | Inpatient (IN) | payer OTHER ==
[2022-11-15 12:41] VITALS: BMI 24.1
[2022-11-15] MEDS ORDERED: MAGNESIUM HYDROX 2400MG/30ML ORAL SUSPENSION 30 ML CUP PO PRN (14:48)
[2022-11-15] MEDS ORDERED: MAG HYDROX/AL HYDROX/SIMETH 30 ML UNIT-DOSE CUP PO PRN (14:48)
[2022-11-15] MEDS ORDERED: NALOXONE HCL (KLOXXADO) 8 MG SPRAY NS PRN (14:48)
[2022-11-15] MEDS ORDERED: NICOTINE POLACRILEX 2 MG GUM BUC PRN (14:48)
[2022-11-15] MEDS ORDERED: ACETAMINOPHEN 325 MG TABLET (FP) PO PRN (14:48)
[2022-11-15] MEDS ORDERED: guaiFENesin 600 MG TABLET.ER (FP) PO PRN (14:48)
[2022-11-15] MEDS ORDERED: METHOCARBAMOL 500 MG TABLET PO PRN (14:48)
[2022-11-15] MEDS ORDERED: NALOXONE HCL 0.4 MG/ML VIAL IM PRN (14:48)
[2022-11-15] MEDS ORDERED: BENZOCAINE/MENTHOL (CHLORASEPTIC ) LOZENGE MM PRN (14:48)
[2022-11-15] MEDS ORDERED: hydrOXYzine PAMOATE 25 MG CAPSULE (FP) PO PRN (14:48)
[2022-11-15] MEDS ORDERED: ONDANSETRON *ODT* 4 MG TABLET SL PRN (14:48)
[2022-11-15] MEDS ORDERED: BENZONATATE 200 MG CAPSULE PO PRN (14:48)
[2022-11-15] MEDS ORDERED: BISMUTH SUBSALICYLATE 524 MG/30 ML PO PRN (14:48)
[2022-11-15] MEDS ORDERED: POLYETHYLENE GLYCOL (HEALTHYLAX) 3350 17 GM PACKET PO PRN (14:48)
[2022-11-15] MEDS ORDERED: LOPERAMIDE HCL 2 MG CAPSULE PO PRN (14:48)
[2022-11-15] MEDS ORDERED: chlordiazePOXIDE HCL 25 MG CAPSULE PO PRN (14:54)
[2022-11-15] MEDS ORDERED: hydrOXYzine PAMOATE 25 MG CAPSULE (FP) PO ONE (15:20)
[2022-11-15] MEDS: IBUPROFEN 600 MG TABLET (FP) PO PRN ×2 (16:36→22:11)
[2022-11-15] MEDS: chlordiazePOXIDE HCL 25 MG CAPSULE PO SCH ×2 (17:36→22:09)
[2022-11-15] MEDS ORDERED: MELATONIN 5 MG TABLETS PO SCH (22:00)
[2022-11-15] MEDS: THIAMINE HCL 100 MG TABLET (FP) PO SCH (22:09)
[2022-11-16] MEDS: chlordiazePOXIDE HCL 25 MG CAPSULE PO SCH ×4 (05:26→22:29)
[2022-11-16] MEDS: IBUPROFEN 600 MG TABLET (FP) PO PRN ×2 (05:27→11:28)
[2022-11-16] MEDS ORDERED: ALBUTEROL SO4 HFA INHALER IH PRN (08:03)
[2022-11-16] MEDS: LEVOTHYROXINE NA 25 MCG TABLET (FP) PO SCH (08:42)
[2022-11-16] MEDS: BUDESONIDE/FORMETEROL FUMARATE 160/4.5 mcg INHALER IH SCH ×2 (10:08→22:28)
[2022-11-16] MEDS: PRENATAL VITAMINS W/ FOLIC ACID TABLET (FP) PO SCH (10:09)
[2022-11-16] MEDS: SERTRALINE HCL 50 MG TABLET (FP) PO SCH (10:09)
[2022-11-16] MEDS: NICOTINE 14 MG/24 HOURS TOPICAL PATCH TD SCH (10:10)
[2022-11-16] MEDS: TAMSULOSIN HCL 0.4 MG CAP PO SCH (11:10)
[2022-11-16 11:59] LABS: ALBUMIN 2.9 g/dl (3.4-5.0); BLOOD UREA NITROGEN 12.2 mg/dL (7-18); CALCIUM 9.1 mg/dL (8.5-10.1)
[2022-11-16 12:02] LABS: HEMATOCRIT 34.2 % (35.4-49); HEMOGLOBIN 11.4 GM/dL (11.7-16.9); MCH 22.7 pg (25.7-33.7); MCHC 33.2 g/dl (32.0-35.9); MEAN CELL VOLUME 68.4 fl (80-96); MEAN PLT VOLUME 8.3 fl (7.5-11.1); PLATELET COUNT 170 10^3/uL (134-434); RDW 15.8 % (11.9-15.9); WHITE BLOOD COUNT 7.1 K/mm3 (4.0-10.0)
[2022-11-16 12:03] LABS: CREATININE 0.8 mg/dL (0.55-1.3)
[2022-11-16 12:05] LABS: BILIRUBIN,TOTAL 0.5 mg/dL (0.2-1); TOT PROT 6.9 g/dl (6.4-8.2)
[2022-11-16] MEDS ORDERED: cloNIDine HCL 0.1 MG TABLET PO ONE (13:00)
[2022-11-16] MEDS: GABAPENTIN 300 MG CAPSULE PO SCH ×2 (13:13→22:29)
[2022-11-16] MEDS: IBUPROFEN 400 MG TABLET (FP) PO PRN (17:37)
[2022-11-16] MEDS: ACETAMINOPHEN 325 MG TABLET (FP) PO PRN (20:44)
[2022-11-16] MEDS ORDERED: traZODone HCL 50 MG TABLET (FP) PO SCH (22:00)
[2022-11-16] MEDS: THIAMINE HCL 100 MG TABLET (FP) PO SCH (22:29)
[2022-11-16] MEDS: QUEtiapine FUMARATE 50 MG TABLET PO SCH (22:29)
[2022-11-17] MEDS: chlordiazePOXIDE HCL 25 MG CAPSULE PO SCH ×4 (05:16→22:13)
[2022-11-17] MEDS: GABAPENTIN 300 MG CAPSULE PO SCH ×3 (05:17→22:13)
[2022-11-17] MEDS: LEVOTHYROXINE NA 25 MCG TABLET (FP) PO SCH (06:02)
[2022-11-17] MEDS: BUDESONIDE/FORMETEROL FUMARATE 160/4.5 mcg INHALER IH SCH ×2 (09:46→22:15)
[2022-11-17] MEDS: TAMSULOSIN HCL 0.4 MG CAP PO SCH (10:19)
[2022-11-17] MEDS: NICOTINE 14 MG/24 HOURS TOPICAL PATCH TD SCH (10:19)
[2022-11-17] MEDS: SERTRALINE HCL 50 MG TABLET (FP) PO SCH (10:19)
[2022-11-17] MEDS: PRENATAL VITAMINS W/ FOLIC ACID TABLET (FP) PO SCH (10:20)
[2022-11-17] MEDS: IBUPROFEN 600 MG TABLET (FP) PO PRN ×2 (10:20→17:23)
[2022-11-17] MEDS: QUEtiapine FUMARATE 50 MG TABLET PO SCH (22:12)
[2022-11-17] MEDS: traZODone HCL 100 MG TABLET (FP) PO SCH (22:12)
[2022-11-17] MEDS: THIAMINE HCL 100 MG TABLET (FP) PO SCH (22:13)
[2022-11-17] MEDS: IBUPROFEN 400 MG TABLET (FP) PO PRN (22:48)
[2022-11-18] MEDS ORDERED: chlordiazePOXIDE HCL 10 MG CAPSULE PO PRN
[2022-11-18] MEDS: chlordiazePOXIDE HCL 10 MG CAPSULE PO SCH ×4 (05:18→22:25)
[2022-11-18] MEDS: GABAPENTIN 300 MG CAPSULE PO SCH ×3 (05:19→22:25)
[2022-11-18] MEDS: IBUPROFEN 400 MG TABLET (FP) PO PRN (05:22)
[2022-11-18] MEDS: LEVOTHYROXINE NA 25 MCG TABLET (FP) PO SCH (06:09)
[2022-11-18] MEDS: BUDESONIDE/FORMETEROL FUMARATE 160/4.5 mcg INHALER IH SCH ×2 (10:01→22:26)
[2022-11-18] MEDS: PRENATAL VITAMINS W/ FOLIC ACID TABLET (FP) PO SCH (10:01)
[2022-11-18] MEDS: SERTRALINE HCL 50 MG TABLET (FP) PO SCH (10:02)
[2022-11-18] MEDS: TAMSULOSIN HCL 0.4 MG CAP PO SCH (10:02)
[2022-11-18] MEDS: NICOTINE 14 MG/24 HOURS TOPICAL PATCH TD SCH (10:02)
[2022-11-18] MEDS: ACETAMINOPHEN 325 MG TABLET (FP) PO PRN (10:05)
[2022-11-18] MEDS: IBUPROFEN 600 MG TABLET (FP) PO PRN (13:04)
[2022-11-18] MEDS: traZODone HCL 100 MG TABLET (FP) PO SCH (22:25)
[2022-11-18] MEDS: THIAMINE HCL 100 MG TABLET (FP) PO SCH (22:25)
[2022-11-18] MEDS: QUEtiapine FUMARATE 50 MG TABLET PO SCH (22:25)
[2022-11-19] MEDS: IBUPROFEN 600 MG TABLET (FP) PO PRN ×2 (02:19→22:23)
[2022-11-19] MEDS: chlordiazePOXIDE HCL 10 MG CAPSULE PO SCH ×2 (05:22→17:44)
[2022-11-19] MEDS: GABAPENTIN 300 MG CAPSULE PO SCH ×3 (05:22→22:20)
[2022-11-19] MEDS: ACETAMINOPHEN 325 MG TABLET (FP) PO PRN (05:23)
[2022-11-19] MEDS: LEVOTHYROXINE NA 25 MCG TABLET (FP) PO SCH (06:22)
[2022-11-19] MEDS: PRENATAL VITAMINS W/ FOLIC ACID TABLET (FP) PO SCH (10:47)
[2022-11-19] MEDS: TAMSULOSIN HCL 0.4 MG CAP PO SCH (10:47)
[2022-11-19] MEDS: SERTRALINE HCL 50 MG TABLET (FP) PO SCH (10:47)
[2022-11-19] MEDS: BUDESONIDE/FORMETEROL FUMARATE 160/4.5 mcg INHALER IH SCH ×2 (10:47→22:21)
[2022-11-19] MEDS: NICOTINE 14 MG/24 HOURS TOPICAL PATCH TD SCH (10:48)
[2022-11-19] MEDS ORDERED: METHOCARBAMOL 500 MG TABLET PO ONE (15:45)
[2022-11-19] MEDS: traZODone HCL 100 MG TABLET (FP) PO SCH (22:20)
[2022-11-19] MEDS: QUEtiapine FUMARATE 50 MG TABLET PO SCH (22:20)
[2022-11-19] MEDS: THIAMINE HCL 100 MG TABLET (FP) PO SCH (22:20)
[2022-11-20] MEDS ORDERED: chlordiazePOXIDE HCL 10 MG CAPSULE PO ONE (05:00)
[2022-11-20] MEDS: GABAPENTIN 300 MG CAPSULE PO SCH (05:45)
[2022-11-20] MEDS: IBUPROFEN 600 MG TABLET (FP) PO PRN (05:48)
[2022-11-20] MEDS: LEVOTHYROXINE NA 25 MCG TABLET (FP) PO SCH (06:09)
[2022-11-20] MEDS: TAMSULOSIN HCL 0.4 MG CAP PO SCH (10:35)
[2022-11-20] MEDS: NICOTINE 14 MG/24 HOURS TOPICAL PATCH TD SCH (10:35)
[2022-11-20] MEDS: BUDESONIDE/FORMETEROL FUMARATE 160/4.5 mcg INHALER IH SCH (10:36)
[2022-11-20] MEDS: PRENATAL VITAMINS W/ FOLIC ACID TABLET (FP) PO SCH (10:36)
[2022-11-20] MEDS: SERTRALINE HCL 50 MG TABLET (FP) PO SCH (10:36)
[2022-11-20 10:37] VITALS: BP 149/77; PULSE 86; RESP 18; TEMP 97.6
== END 2022-11-20 10:20 | disposition home or self-care (01) | DRG 774 ==
LOC: YASAS 12:10 → Y6N 15:51
PROVIDERS: ADMIT Allergy & Immunology; ATTEND Surgery
PROC: HZ2ZZZZ Detoxification Services for Substance Abuse Treatment (ICD-10-PCS; principal; 2022-11-15)
DX: F10.230 Alcohol dependence with withdrawal, uncomplicated (principal); F14.20 Cocaine dependence, uncomplicated; F17.210 Nicotine dependence, cigarettes, uncomplicated; F19.280 Other psychoactive substance dependence with psychoactive substance-induced anxiety disorder; F19.282 Other psychoactive substance dependence with psychoactive substance-induced sleep disorder; F19.24 Other psychoactive substance dependence with psychoactive substance-induced mood disorder; F31.9 Bipolar disorder, unspecified; F43.10 Post-traumatic stress disorder, unspecified; D50.9 Iron deficiency anemia, unspecified; E03.9 Hypothyroidism, unspecified; J45.40 Moderate persistent asthma, uncomplicated; K21.9 Gastro-esophageal reflux disease without esophagitis; M54.50 Low back pain, unspecified; G89.29 Other chronic pain; Z99.89 Dependence on other enabling machines and devices; Z88.8 Allergy status to other drugs, medicaments and biological substances
CPT/HCPCS: 36415; 71046-TC-FY; 80053; 83036; 85027; 86780; 87635; Q0162